=== PATIENT | female | born 1940 | race Caucasian/White ===

== ENCOUNTER 2018-02-20 18:44 | Emergency (ER) | payer MEDICARE ==
[2018-02-20 18:50] VITALS: TEMP 98.8
--- NOTE | 2018-02-20 19:28 | ED ---
General Adult HPI - General Chief complaint: Fall Stated complaint: fall Time Seen by Provider: 02/20/18 18:52 Source: patient, RN notes reviewed, old records reviewed Mode of arrival: EMS Limitations: no limitations - History of Present Illness Initial comments: This is a 78-year-old female the ER for evaluation. Patient resents today for evaluation of back pain back pain status post fall. Patient does suffer from history of COPD, has had history of multiple chemical in nature she fell backwards landing on her back. No loss of consciousness no other injury noted. Patient is complaining of lumbar spine back pain no loss of bowel or bladder no neurological complaint - Related Data Home Medications Medication Instructions Recorded Confirmed Jackson Cit/Mag/D3/Zn/Soils Engineer/Leonard/Bor 1 tab PO DAILY 12/18/13 10/04/15 [Citracal-Vit D + Magnesium Tab] Diltiazem Cd [Cardizem CD] 180 mg PO DAILY 12/18/13 10/04/15 Losartan/Hydrochlorothiazide 1 tab PO DAILY 12/18/13 10/04/15 [Hyzaar 100-25 Tablet] Potassium Chloride ER [K-Dur 20] 20 meq PO DAILY 12/18/13 10/04/15 Simvastatin [Zocor] 40 mg PO HS 12/18/13 10/04/15 Budesonide-Formot 160-4.5 Mcg 2 puff INHALATION RT-BID 10/03/15 10/04/15 [Symbicort 160-4.5 Mcg Inhaler] Ferrous Sulfate [Iron (65 MG 325 mg PO DAILY 10/03/15 10/04/15 Elemental)] Previous Rx's Medication Instructions Recorded Docusate [Colace] 100 mg PO BID #60 cap 09/21/15 Ipratropium-Albuterol Nebulize 3 ml INHALATION RT-QID #0 ampul.neb 09/21/15 [Duoneb 0.5 mg-3 mg/3 ml Soln] Levofloxacin [Levaquin] 500 mg PO DAILY #10 tab 10/05/15 Multivitamins, Thera [Multivitamin 1 tab PO DAILY #30 tablet 10/05/15 (formulary)] Omeprazole [PriLOSEC] 20 mg PO AC-BID #60 cap 10/05/15 predniSONE 10 mg PO DIRECTED #30 tab 10/05/15 Allergies Allergy/AdvReac Type Severity Reaction Status Date / Time erythromycin base Allergy Unknown Verified 02/20/18 18:50 Macrolide Antibiotics Allergy Unknown Verified 02/20/18 18:50 azithromycin AdvReac Nausea & Verified 02/20/18 18:50 Vomiting Review of Systems ROS Statement: Those systems with pertinent positive or pertinent negative responses have been documented in the HPI. ROS Other: All systems not noted in ROS Statement are negative. Past Medical History Past Medical History: Atrial Fibrillation, Cancer, COPD, Hyperlipidemia, Hypertension, Pneumonia, Syncope Additional Past Medical History / Comment(s): BREAST CANCER- LEFT MASTECTOMY, COUGHING UP BLOOD, HOME O2 2.5 LITERS N/C History of Any Multi-Drug Resistant Organisms: None Reported Past Surgical History: Breast Surgery Additional Past Surgical History / Comment(s): LEFT PARTICAL MASECTOMY, bilateral cataract removal-->implant, COLONOSCOPY Past Anesthesia/Blood Transfusion Reactions: No Reported Reaction Past Psychological History: No Psychological Hx Reported Smoking Status: Former smoker Past Alcohol Use History: None Reported Past Drug Use History: None Reported - Past Family History Father History Unknown: Yes Mother Additional Family Medical History / Comment(s): Mother at age 38 yrs. She was and labored for 52 hours and as a complication of that per pt. VERIFIED Sister(s) Family Medical History: CVA/TIA, Seizure Disorder Additional Family Medical History / Comment(s): at age 42 yrs from seizure/ CVA. Brother(s) Family Medical History: COPD, Diabetes Mellitus Additional Family Medical History / Comment(s): at age 61 yrs. General Exam Limitations: no limitations General appearance: alert, in no apparent distress Head exam: Present: atraumatic, normocephalic, normal inspection Eye exam: Present: normal appearance, PERRL, EOMI. Absent: scleral icterus, conjunctival injection, periorbital swelling ENT exam: Present: normal exam, mucous membranes moist Neck exam: Present: normal inspection. Absent: tenderness, meningismus, lymphadenopathy Respiratory exam: Present: normal lung sounds bilaterally. Absent: respiratory distress, wheezes, rales, rhonchi, stridor Cardiovascular Exam: Present: regular rate, normal rhythm, normal heart sounds. Absent: systolic murmur, diastolic murmur, rubs, gallop, clicks GI/Abdominal exam: Present: soft, normal bowel sounds. Absent: distended, tenderness, guarding, rebound, rigid Extremities exam: Present: normal inspection, full ROM, normal capillary refill. Absent: tenderness, pedal edema, joint swelling, calf tenderness Back exam: Present: normal inspection Neurological exam: Present: alert, oriented X3, CN II-XII intact Psychiatric exam: Present: normal affect, normal mood Skin exam: Present: warm, dry, intact, normal color. Absent: rash Course Vital Signs 02/20/18 18:46 Temperature 98.8 F Pulse Rate 93 Respiratory 18 Rate Blood Pressure 169/78 O2 Sat by Pulse 93 L Oximetry - Reevaluation(s) Reevaluation #1: 02/20/18 19:27 Patient is in no acute significant distress no neurological finding or complaint 02/20/18 19:27 Patient is able to ambulate Reevaluation #2: 02/20/18 19:31 Patient requesting breathing treatment, patient is in no acute distress Medical Decision Making - Radiology Data Radiology results: report reviewed (X-ray lumbosacral spine is negative for acute disease), image reviewed Disposition Clinical Impression: Fall, Back pain, Back contusion Disposition: HOME SELF-CARE Condition: Good Instructions: Fall Prevention for Older Adults (ED) Is patient prescribed a controlled substance at d/c from ED?: No Referrals: Patrick Hood MD [Primary Care Provider] - 1-2 days
[2018-02-20] MEDS ORDERED: IPRATROPIUM-ALBUTEROL 3 ML NEB INHALATION STA (19:31)
--- NOTE | 2018-02-20 19:39 | XR ---
EXAMINATION TYPE: XR lumbar spine 2 or 3V DATE OF EXAM: 02/20/2018 COMPARISON: NONE HISTORY: Back pain TECHNIQUE: 3 views FINDINGS: Lumbar vertebra have normal alignment. There is disc space narrowing throughout the lumbar spine. There is no compression fracture. Abdominal aorta is atheromatous. Sacroiliac joints are intac t. IMPRESSION: Multilevel spondylosis. No compression fracture seen.
[2018-02-20 20:25] VITALS: BP 150/72; PULSE 99; RESP 18
== END 2018-02-20 20:24 | disposition home or self-care (01) ==
LOC: EC 18:44
DX: S30.0XXA Contusion of lower back and pelvis, initial encounter (principal); I48.91 Unspecified atrial fibrillation; I10 Essential (primary) hypertension; J44.9 Chronic obstructive pulmonary disease, unspecified; E78.5 Hyperlipidemia, unspecified; Z79.51 Long term (current) use of inhaled steroids; Z79.899 Other long term (current) drug therapy; Z88.1 Allergy status to other antibiotic agents; Z87.891 Personal history of nicotine dependence; Z85.3 Personal history of malignant neoplasm of breast; Z90.12 Acquired absence of left breast and nipple; W19.XXXA Unspecified fall, initial encounter; Y92.009 Unspecified place in unspecified non-institutional (private) residence as the place of occurrence of the external cause
CPT/HCPCS: 72100; 94640; 99284

== ENCOUNTER 2018-06-06 13:20 | Inpatient (IN) | payer MEDICARE ==
[2018-06-06] MEDS ORDERED: SODIUM CHLORIDE 0.9% 1,000 ML IV STA (13:26)
[2018-06-06] MEDS ORDERED: SODIUM CHLORIDE 0.9% 500 ML 500 ML IV STA (13:26)
[2018-06-06 13:48] LABS: Basophils % (A) 0 %; Eosinophils % (A) 0 %; HCT 35.4 % (34.0-46.0); HGB 10.7 gm/dL (11.4-16.0); Hypochromasia Moderate; Lymphocytes # (A) 0.7 k/uL (1.0-4.8); Lymphocytes % (A) 5 %; MCHC 30.2 g/dL (31.0-37.0); MCV 86.1 fL (80.0-100.0); Mean Platelet Volume 7.3; Monocytes # (A) 0.6 k/uL (0-1.0); Monocytes % (A) 4 %; Neutrophils # (A) 12.7 k/uL (1.3-7.7); Neutrophils % (A) 89 %; Platelet Count 294 k/uL (150-450); RBC 4.12 m/uL (3.80-5.40); RDW 14.7 % (11.5-15.5); WBC 14.3 k/uL (3.8-10.6)
[2018-06-06 14:01] LABS: Albumin 3.9 g/dL (3.5-5.0); Calcium 11.8 mg/dL (8.4-10.2); Potassium 3.8 mmol/L (3.5-5.1); Total Bilirubin 0.5 mg/dL (0.2-1.3); Total Protein 6.8 g/dL (6.3-8.2)
--- NOTE | 2018-06-06 14:04 | ED ---
Weakness HPI - General Chief complaint: Weakness Stated complaint: Weakness/ fall Time Seen by Provider: 06/06/18 13:20 Source: patient, EMS, RN notes reviewed Mode of arrival: EMS Limitations: no limitations - History of Present Illness Initial comments: This is a 78-year-old female with a history of multiple medical problems including hypertension and atrial fibrillation who states he fell last evening around 8 PM last year she currently fast she does states she fell is unknown she lost consciousness or not but she laid on the floor all night and could not get up she was able change positions but could not get up and ambulate. She was brought in by EMS. She denies any head neck or back pain she does have kyphosis which is not new for her. He denies any nausea vomiting she states she is hungry and thirsty per paramedics she could not ambulate MD Complaint: generalized weakness - Related Data Home Medications Medication Instructions Recorded Confirmed Jackson Cit/Mag/D3/Zn/Kitchen Lead/Leonard/Bor 1 tab PO DAILY 12/18/13 10/04/15 [Citracal-Vit D + Magnesium Tab] Diltiazem Cd [Cardizem CD] 180 mg PO DAILY 12/18/13 10/04/15 Losartan/Hydrochlorothiazide 1 tab PO DAILY 12/18/13 10/04/15 [Hyzaar 100-25 Tablet] Potassium Chloride ER [K-Dur 20] 20 meq PO DAILY 12/18/13 10/04/15 Simvastatin [Zocor] 40 mg PO HS 12/18/13 10/04/15 Budesonide-Formot 160-4.5 Mcg 2 puff INHALATION RT-BID 10/03/15 10/04/15 [Symbicort 160-4.5 Mcg Inhaler] Ferrous Sulfate [Iron (65 MG 325 mg PO DAILY 10/03/15 10/04/15 Elemental)] Previous Rx's Medication Instructions Recorded Docusate [Colace] 100 mg PO BID #60 cap 09/21/15 Ipratropium-Albuterol Nebulize 3 ml INHALATION RT-QID #0 ampul.neb 09/21/15 [Duoneb 0.5 mg-3 mg/3 ml Soln] Levofloxacin [Levaquin] 500 mg PO DAILY #10 tab 10/05/15 Multivitamins, Thera [Multivitamin 1 tab PO DAILY #30 tablet 10/05/15 (formulary)] Omeprazole [PriLOSEC] 20 mg PO AC-BID #60 cap 10/05/15 predniSONE 10 mg PO DIRECTED #30 tab 10/05/15 Allergies Allergy/AdvReac Type Severity Reaction Status Date / Time erythromycin base Allergy Unknown Verified 06/06/18 13:22 Macrolide Antibiotics Allergy Unknown Verified 06/06/18 13:22 azithromycin AdvReac Nausea & Verified 06/06/18 13:22 Vomiting Review of Systems ROS Statement: Those systems with pertinent positive or pertinent negative responses have been documented in the HPI. ROS Other: All systems not noted in ROS Statement are negative. Past Medical History Past Medical History: Atrial Fibrillation, Cancer, COPD, Hyperlipidemia, Hypertension, Pneumonia, Syncope Additional Past Medical History / Comment(s): BREAST CANCER- LEFT MASTECTOMY, COUGHING UP BLOOD, HOME O2 2.5 LITERS N/C History of Any Multi-Drug Resistant Organisms: None Reported Past Surgical History: Breast Surgery Additional Past Surgical History / Comment(s): LEFT PARTICAL MASECTOMY, bilateral cataract removal-->implant, COLONOSCOPY Past Anesthesia/Blood Transfusion Reactions: No Reported Reaction Past Psychological History: No Psychological Hx Reported Smoking Status: Former smoker Past Alcohol Use History: None Reported Past Drug Use History: None Reported - Past Family History Father History Unknown: Yes Mother Additional Family Medical History / Comment(s): Mother at age 38 yrs. She was and labored for 52 hours and as a complication of that per pt. VERIFIED Sister(s) Family Medical History: CVA/TIA, Seizure Disorder Additional Family Medical History / Comment(s): at age 42 yrs from seizure/ CVA. Brother(s) Family Medical History: COPD, Diabetes Mellitus Additional Family Medical History / Comment(s): at age 61 yrs. General Exam - General Exam Comments Initial Comments: This is a well-developed well-nourished awake alert oriented 3 female she does demonstrate severe kyphosis. Limitations: physical limitation General appearance: alert, lethargic Head exam: Present: atraumatic, normocephalic, normal inspection Eye exam: Present: normal appearance, PERRL, EOMI. Absent: scleral icterus, conjunctival injection, periorbital swelling ENT exam: Present: mucous membranes dry Neck exam: Present: normal inspection. Absent: tenderness, meningismus, lymphadenopathy Respiratory exam: Present: normal lung sounds bilaterally. Absent: respiratory distress, wheezes, rales, rhonchi, stridor Cardiovascular Exam: Present: tachycardia, irregular rhythm. Absent: systolic murmur, diastolic murmur, rubs, gallop, clicks GI/Abdominal exam: Present: soft, normal bowel sounds. Absent: distended, tenderness, guarding, rebound, rigid Extremities exam: Present: normal inspection, full ROM, normal capillary refill. Absent: tenderness, pedal edema, joint swelling, calf tenderness Back exam: Present: normal inspection Neurological exam: Present: alert, oriented X3, CN II-XII intact Psychiatric exam: Present: normal affect, normal mood Skin exam: Present: warm, dry, intact, normal color. Absent: rash Course Vital Signs 06/06/18 06/06/18 06/06/18 13:22 13:27 13:30 Temperature 97.3 F L Pulse Rate 94 140 H 108 H Respiratory 18 31 H 28 H Rate Blood Pressure 89/67 101/67 O2 Sat by Pulse 87 L 94 L Oximetry 06/06/18 06/06/18 06/06/18 13:45 14:00 14:15 Temperature Pulse Rate 102 H 91 94 Respiratory 25 H 25 H 28 H Rate Blood Pressure 101/67 89/61 102/88 O2 Sat by Pulse 99 Oximetry 06/06/18 06/06/18 06/06/18 14:30 14:45 15:00 Temperature Pulse Rate 93 91 Respiratory 25 H 21 Rate Blood Pressure 111/69 111/69 108/68 O2 Sat by Pulse Oximetry 06/06/18 06/06/18 15:15 16:22 Temperature 98.6 F Pulse Rate 90 94 Respiratory 17 18 Rate Blood Pressure 91/52 105/59 O2 Sat by Pulse 100 98 Oximetry - Reevaluation(s) Reevaluation #1: 06/06/18 16:42 Reevaluation the patient after initial medication given heart rate has improved as well as blood pressure after IV fluids as well as IV Cardizem. EKG Findings - EKG Results: EKG: interpreted by ASHA (Atrial fibrillation with a rapid ventricular rate of 114 QRS duration 88 QT since QTC 292/[address] configuration.) Medical Decision Making - Medical Decision Making Patient is improving somewhat with initial treatment I did discuss [employer] her and her family member. Patient will be admitted for inpatient treatment. I did discuss case with Dr. Mike who did come the emergency department and see the patient. - Lab Data Result diagrams: 06/06/18 13:25 06/06/18 13:25 Lab Results 06/06/18 06/06/18 06/06/18 Range/Units 13:25 13:25 13:25 WBC 14.3 H (3.8-10.6) k/uL RBC 4.12 (3.80-5.40) m/uL Hgb 10.7 L (11.4-16.0) gm/dL Hct 35.4 (34.0-46.0) % MCV 86.1 (80.0-100.0) fL MCH 26.0 (25.0-35.0) pg MCHC 30.2 L (31.0-37.0) g/dL RDW 14.7 (11.5-15.5) % Plt Count 294 (150-450) k/uL Neutrophils % 89 % Lymphocytes % 5 % Monocytes % 4 % Eosinophils % 0 % Basophils % 0 % Neutrophils # 12.7 H (1.3-7.7) k/uL Lymphocytes # 0.7 L (1.0-4.8) k/uL Monocytes # 0.6 (0-1.0) k/uL Eosinophils # 0.0 (0-0.7) k/uL Basophils # 0.0 (0-0.2) k/uL Hypochromasia Moderate Sodium (137-145) mmol/L Potassium (3.5-5.1) mmol/L Chloride (98-107) mmol/L Carbon Dioxide (22-30) mmol/L Anion Gap mmol/L BUN (7-17) mg/dL Creatinine (0.52-1.04) mg/dL Est GFR (CKD-EPI)AfAm (>60 ml/min/1.73 sqM) Est GFR (CKD-EPI)NonAf (>60 ml/min/1.73 sqM) Glucose (74-99) mg/dL Calcium (8.4-10.2) mg/dL Magnesium (1.6-2.3) mg/dL Total Bilirubin (0.2-1.3) mg/dL AST (14-36) U/L ALT (9-52) U/L Alkaline Phosphatase (38-126) U/L Total Creatine Kinase 333 H (30-135) U/L CK-MB (CK-2) 7.5 H (0.0-2.4) ng/mL CK-MB (CK-2) Rel Index 2.3 Troponin I 0.094 H* (0.000-0.034) ng/mL NT-Pro-B Natriuret Pep 6150 pg/mL Total Protein (6.3-8.2) g/dL Albumin (3.5-5.0) g/dL Urine Color Urine Appearance (Clear) Urine pH (5.0-8.0) Ur Specific [place] (1.001-1.035) Urine Protein (Negative) Urine Glucose (UA) (Negative) Urine Ketones (Negative) Urine Blood (Negative) Urine Nitrite (Negative) Urine Bilirubin (Negative) Urine Urobilinogen (<2.0) mg/dL Ur Leukocyte Esterase (Negative) Urine RBC (0-5) /hpf Urine WBC (0-5) /hpf Urine Mucus (None) /hpf Urine Yeast (Budding) (None) /hpf 06/06/18 06/06/18 Range/Units 13:25 15:25 WBC (3.8-10.6) k/uL RBC (3.80-5.40) m/uL Hgb (11.4-16.0) gm/dL Hct (34.0-46.0) % MCV (80.0-100.0) fL MCH (25.0-35.0) pg MCHC (31.0-37.0) g/dL RDW (11.5-15.5) % Plt Count (150-450) k/uL Neutrophils % % Lymphocytes % % Monocytes % % Eosinophils % % Basophils % % Neutrophils # (1.3-7.7) k/uL Lymphocytes # (1.0-4.8) k/uL Monocytes # (0-1.0) k/uL Eosinophils # (0-0.7) k/uL Basophils # (0-0.2) k/uL Hypochromasia Sodium 140 (137-145) mmol/L Potassium 3.8 (3.5-5.1) mmol/L Chloride 97 L (98-107) mmol/L Carbon Dioxide 28 (22-30) mmol/L Anion Gap 15 mmol/L BUN 38 H (7-17) mg/dL Creatinine 1.63 H (0.52-1.04) mg/dL Est GFR (CKD-EPI)AfAm 35 (>60 ml/min/1.73 sqM) Est GFR (CKD-EPI)NonAf 30 (>60 ml/min/1.73 sqM) Glucose 119 H (74-99) mg/dL Calcium 11.8 H (8.4-10.2) mg/dL Magnesium 2.0 (1.6-2.3) mg/dL Total Bilirubin 0.5 (0.2-1.3) mg/dL AST 43 H (14-36) U/L ALT 26 (9-52) U/L Alkaline Phosphatase 142 H (38-126) U/L Total Creatine Kinase (30-135) U/L CK-MB (CK-2) (0.0-2.4) ng/mL CK-MB (CK-2) Rel Index Troponin I (0.000-0.034) ng/mL NT-Pro-B Natriuret Pep pg/mL Total Protein 6.8 (6.3-8.2) g/dL Albumin 3.9 (3.5-5.0) g/dL Urine Color Yellow Urine Appearance Clear (Clear) Urine pH 5.5 (5.0-8.0) Ur Specific [place] 1.012 (1.001-1.035) Urine Protein 1+ H (Negative) Urine Glucose (UA) Negative (Negative) Urine Ketones Trace H (Negative) Urine Blood Negative (Negative) Urine Nitrite Negative (Negative) Urine Bilirubin Negative (Negative) Urine Urobilinogen <2.0 (<2.0) mg/dL Ur Leukocyte Esterase Negative (Negative) Urine RBC 4 (0-5) /hpf Urine WBC 2 (0-5) /hpf Urine Mucus Rare H (None) /hpf Urine Yeast (Budding) Rare H (None) /hpf - Radiology Data Radiology results: report reviewed, image reviewed Critical Care Time Critical Care Time: Yes Critical Care Time: 37 minutes of critical care time which includes initial presentation with history physical labs x-rays several reevaluation patient responsive therapy discuss with the patient family regarding findings discussion with the admitting physician admission orders and documentation of the above Disposition Clinical Impression: Rapid atrial fibrillation, Dehydration, Elevated troponin, Failure to thrive syndrome, adult, Weakness, Fall, Renal insufficiency syndrome, Hypotensive episode Disposition: ADMITTED IP TO THIS HOSP Condition: Stable Referrals: Rad Turner DO [Primary Care Provider] - 1-2 days
[2018-06-06] MEDS: DILTIAZEM 50 MG in SODIUM CHLORIDE 0.9% 40 ML IV SCH ×2 (14:17→20:00)
[2018-06-06 14:22] LABS: Creatine Kinase MB 7.5 ng/mL (0.0-2.4)
[2018-06-06 14:24] LABS: Troponin I 0.094 ng/mL (0.000-0.034)
--- NOTE | 2018-06-06 14:40 | XR ---
EXAMINATION TYPE: XR chest 2V DATE OF EXAM: 06/06/2018 COMPARISON: 10/03/2015 HISTORY: Weakness. TECHNIQUE: Frontal and lateral views of the chest are obtained. FINDINGS: There is mild coarsening of the interstitial markings. Heart size is normal. There is no h eart failure. There is osteopenia. There is slight anterior wedging of multiple thoracic vertebra. Th ere is no pleural effusion. IMPRESSION: Pulmonary fibrotic changes. No heart failure. Multiple mild compression deformities in the thoracic spine have progressed compared to last exam. So me of these could be acute fractures.
[2018-06-06 15:59] LABS: Appearance,Urine Clear (Clear); Bilirubin,Urine Negative (Negative); Blood,Urine Negative (Negative); Budding Yeast,Urine Rare /hpf; Color,Urine Yellow; Glucose,Urine (UA) Negative (Negative); Ketones,Urine Trace (Negative); Leukocyte Esterase,Urine Negative (Negative); Mucus,Urine Rare /hpf; Nitrite,Urine Negative (Negative); PH, Urine 5.5 (5.0-8.0); Protein,Urine 1+ (Negative); RBC,Urine 4 /hpf (0-5); Specific Gravity,Urine 1.012 (1.001-1.035); Urobilinogen,Urine <2.0 mg/dL (<2.0); WBC,Urine 2 /hpf (0-5)
[2018-06-06] MEDS ORDERED: NALOXONE 0.4 MG/ML 1 ML VIAL IV PRN (16:48)
[2018-06-06] MEDS ORDERED: predniSONE 10 MG TAB PO SCH (17:00)
[2018-06-06] MEDS: PIPERACILLIN-TAZOBACTAM 3.375 GM in SODIUM CHLORIDE 0.9% 100 ML IVPB SCH (18:12)
[2018-06-06] MEDS: SYMBICORT 160-4.5 MCG INHALER INHALATION SCH (19:40)
[2018-06-06] MEDS: IPRATROPIUM-ALBUTEROL 3 ML NEB INHALATION SCH (19:40)
[2018-06-06] MEDS: PANTOPRAZOLE 40 MG TABLET PO SCH (20:00)
[2018-06-06] MEDS: DOCUSATE 100 MG CAP PO SCH (20:00)
[2018-06-06] MEDS: ATORVASTATIN 20 MG TAB PO SCH (20:00)
--- NOTE | 2018-06-06 21:50 | HP ---
HISTORY AND PHYSICAL CHIEF COMPLAINT: Weakness and fall. HISTORY OF PRESENT ILLNESS: This 78-year-old woman with a past medical history of multiple medical problems including atrial fibrillation, COPD, hypertension, hyperlipidemia, syncope, history of breast cancer with mastectomy being followed by Dr. Hood in the outpatient setting, apparently was complaining of some weakness and the patient apparently lives by herself and the patient fell last evening about 8 o'clock and the patient was taken to [facility] and was admitted for further evaluation and treatment. The patient was found to be hypotensive. Patient was found to be slightly dehydrated. Chest x- ray showed bilateral opacities and the patient is being admitted for further evaluation and treatment. There is no history of fever, rigors or chills. No history of headache, loss of consciousness, seizures at this time. PAST MEDICAL HISTORY: History of atrial ablation COPD, hypertension, hyperlipidemia, history of pneumonia, history of syncope, history of breast surgery. MEDICATIONS: Prior to admission include home medications are reviewed and include: 1. Prednisone 10 mg p.r.n. 2. Zocor 40 mg q.h.s. 3. K-Dur 20 mEq p.o. daily. 4. Prilosec 20 mg b.i.d. 5. Multivitamins 1 p.o. daily. 6. Hyzaar 1 tablet p.o. daily. 7. Levaquin 500 mg p.o. daily. 8. DuoNeb q.i.d. 9. Iron sulfate 320 mg p.o. daily. 10.Colace 100 mg p.o. b.i.d. 11.Cardizem CD 180 mg p.o. daily. 12.Calcium citrate 1 tablet p.o. daily. 13.Symbicort 1-2 puffs b.i.d. ALLERGIES: ERYTHROMYCIN, ZITHROMAX. FAMILY HISTORY: History of CVA, TIA, seizure disorder. SOCIAL HISTORY: Remote history of nicotine dependence. No history of alcohol. REVIEW OF SYSTEMS: ENT: Diminished vision, diminished hearing. CARDIOVASCULAR: As mentioned earlier. RESPIRATORY: As mentioned earlier. GI no nausea or vomiting. : No dysuria. NERVOUS SYSTEM: No numbness, generalized weakness present. ALLERGIES/IMMUNOLOGY : No asthma or hayfever. MUSCULOSKELETAL: As mentioned earlier. ENDOCRINE: No hypothyroidism, no diabetes. CONSTITUTIONAL: As mentioned earlier. Dermatology: Negative. Rheumatology: Negative. Psychiatry: As mentioned earlier. PHYSICAL EXAM: GENERAL: Patient is alert, oriented x two. Pulse is 94. Blood pressure 105/59, respirations 18, temperature 98.2, pulse ox 98% on 2 L. HEENT: Conjunctivae normal. Oral mucosa dry. NECK is jugular venous distention at the root of the neck. CARDIOVASCULAR: S1, S2 muffled. Ejection systolic murmur. RESPIRATORY: Breath sounds diminished in the bases. A few bilateral scattered rhonchi and crackles. ABDOMEN: Soft, scaphoid, nontender. No mass palpable. LEGS: Minimal edema. NERVOUS SYSTEM: Higher functions as mentioned earlier. Moves all 4 limbs. No focal motor or sensory deficits. Lymphatics: No lymph nodes palpable in the neck, axillae or groin. SKIN: No ulcer, no rash. No bleeding. LABS: WBC 14.3, hemoglobin 10.7, sodium 140, potassium 3.8, creatinine is 1.63, calcium is 11.8, troponin 0.094. ASSESSMENT: 1. Fall and weakness for evaluation. 2. Rule out bilateral pneumonia. 3. Rule out influenza. indet trops hypercalcemia 4. Congestive heart failure, unlikely. 5. Dehydration. 6. Increased creatinine with possibly acute renal failure, prerenal renal failure. 7. Increased WBC. 8. History atrial fibrillation with fast ventricular rate. 9. Chronic obstructive pulmonary disease. 10.History of hypertension. 11.Hyperlipidemia. 12.History of pneumonia. 13.History of breast cancer. Left mastectomy. 14.Remote history of nicotine dependence. RECOMMENDATIONS AND DISCUSSION: In this 78-year-old woman who presented with multiple complex medical issues at this time I recommend to continue current medications, symptomatic treatment, management and I will initiate broad-spectrum IV antibiotics and we will hold off the diuretics for now. I would also recommend speech pathology evaluation. PT/OT evaluation. icebox worker to evaluate the home situation and prognosis guarded because of multiple complex medical issues. Further recommendations to follow. I would also recommend cardiology and pulmonology consultation also. See orders for details. Optimize bronchodilator treatment. MMODL / IJN: [id number] / MTDD
[2018-06-07] MEDS: PIPERACILLIN-TAZOBACTAM 3.375 GM in SODIUM CHLORIDE 0.9% 100 ML IVPB SCH ×4 (00:01→23:17)
[2018-06-07 07:17] LABS: Calcium 10.5 mg/dL (8.4-10.2); Potassium 3.5 mmol/L (3.5-5.1)
--- NOTE | 2018-06-07 07:17 | XR ---
EXAMINATION TYPE: XR chest 1V portable DATE OF EXAM: 06/07/2018 HISTORY: chf. REFERENCE: Previous study dated 06/06/2018. FINDINGS: Lungs are overinflated. There are chronic interstitial changes. The heart is not enlarged. Both CP angles are blunted. There is developing airspace disease at the right lung base. IMPRESSION: 1. COPD AND INTERSTITIAL FIBROSIS. 2. WORSENING RIGHT BASILAR AIRSPACE DISEASE. 3. I CANNOT EXCLUDE SMALL, BILATERAL EFFUSIONS.
[2018-06-07 07:30] LABS: Basophils % (A) 0 %; Eosinophils % (A) 0 %; HCT 33.1 % (34.0-46.0); HGB 9.8 gm/dL (11.4-16.0); Hypochromasia Marked; Lymphocytes % (A) 8 %; MCH 26.4 pg (25.0-35.0); MCHC 29.6 g/dL (31.0-37.0); MCV 89.1 fL (80.0-100.0); Mean Platelet Volume 7.6; Monocytes # (A) 0.8 k/uL (0-1.0); Monocytes % (A) 6 %; Neutrophils # (A) 10.8 k/uL (1.3-7.7); Neutrophils % (A) 85 %; Platelet Count 263 k/uL (150-450); RBC 3.71 m/uL (3.80-5.40); RDW 14.6 % (11.5-15.5); WBC 12.8 k/uL (3.8-10.6)
[2018-06-07] MEDS: PANTOPRAZOLE 40 MG TABLET PO SCH ×2 (07:41→17:34)
[2018-06-07] MEDS: SYMBICORT 160-4.5 MCG INHALER INHALATION SCH ×2 (08:03→19:34)
[2018-06-07] MEDS: IPRATROPIUM-ALBUTEROL 3 ML NEB INHALATION SCH ×4 (08:03→19:34)
[2018-06-07] MEDS: POTASSIUM CHLORIDE ER 20 MEQ TAB.ER PO SCH (08:21)
[2018-06-07] MEDS: DOCUSATE 100 MG CAP PO SCH ×2 (08:21→20:29)
[2018-06-07] MEDS ORDERED: LEVOFLOXACIN 500 MG TAB PO SCH (09:00)
[2018-06-07] MEDS ORDERED: DILTIAZEM CD 180 MG CAP.ER.24H PO SCH (09:00)
[2018-06-07] MEDS ORDERED: LOSARTAN-HCTZ 50-12.5 MG 1 EACH TAB PO SCH (09:00)
[2018-06-07] MEDS: DILTIAZEM 50 MG in SODIUM CHLORIDE 0.9% 40 ML IV SCH (11:53)
--- NOTE | 2018-06-07 12:31 | P.CRDCN ---
<Cara Baeza A - Last Filed: 06/07/18 12:21> History of Present Illness History of present illness: This is a pleasant 78-year-old female past medical history significant for paroxysmal atrial fibrillation on ad terminal makeup operator anticoagulation, COPD, pulmonary fibrosis, dyslipdiemia and hypertension. She denies history of coronary artery disease. She follows with Dr. Lee in the office. We have been asked to see her in consultation for atrial fibrillation with rapid ventricular response. She states she presented to the hospital after suffering a fall at home. She states she started feeling mildly light headed and weak. Upon arrival she was in a-fib with rate of 114. She denies feeling palpitations , chest pain or shortness of breath. She states she has felt this way 2 other times in the last few months and has fallen. Each time is a similar presentation with no other symptoms other than the weak lightheaded. She came to the hospital to be evaluated each time and was sent home. No EKG evidence of a-fib during those episodes. She was initiated on cardizem infusion in ED. She continues to be in a-fib with much better controlled heart rate. She is currently receiving IV antibiotics as well as updraft treatments. EKG reveals atrial fibrillation with mildly rapid ventricular response heart rate 114. chest x-ray obtained this morning reveals COPD and interstitial fibrosis with worsening right basilar airspace disease. Laboratory data reviewed, WBC 12.8 down from 14.3 on admission, hemoglobin 9.8, platelets 263, sodium 141, potassium 3.5, creatinine 1.55, magnesium 2.0, NT proBNP 6150, troponin 0.094. At the time of my exam: CONSTITUTIONAL: Denies fever. Denies chills. EYES: Denies blurred vision. Denies vision changes. Denies eye pain. EARS, NOSE, MOUTH & THROAT: Denies headache. Denies sore throat. Denies ear pain. CARDIOVASCULAR: Denies chest pain. Denies shortness of breath. Denies orthopnea. Denies PND. Denies palpitations. RESPIRATORY: Denies cough. GASTROINTESTINAL: Denies abdominal pain. Denies diarrhea. Denies constipation. Denies nausea. Denies vomiting. MUSCULOSKELETAL: Denies myalgias. INTEGUMENTARY: Denies pruitis. Denies rash. NEUROLOGIC: Denies numbness. Denies tingling. Denies weakness. PSYCHIATRIC: Denies anxiety. Denies depression. ENDOCRINE: Denies fatigue. Denies weight change. Denies polydipsia. Denies polyurina. GENITOURINARY: Denies burning, hematuria or urgency with micturation. HEMATOLOGIC: Denies history of anemia. Denies bleeding. Blood pressure 130/55 heart rate 104 afebrile maintaining action saturation on nasal cannula GENERAL: This is a 78-year-old female in no apparent distress at the time of my examination. HEENT: Head is atraumatic, normocephalic. Pupils are equal, round. Sclerae anicteric. Conjunctivae are clear. Mucous membranes of the mouth are moist. Neck is supple. There is no jugular venous distention. No carotid bruit is heard. LUNGS: course rhonchi noted throughout with faint expiratory wheeze, no rales. Diminished bilaterally. No chest wall tenderness is noted on palpation or with deep breathing. HEART: Irregular rate and rhythm without murmurs, rubs or gallops. S1 and S2 heard. ABDOMEN: Soft, nontender. Bowel sounds are heard. No organomegaly noted. EXTREMITIES: No evidence of peripheral edema and no calf tenderness noted. VASCULAR: Radial and dorsalis pedis pulses palpated, no evidence of clubbing. NEUROLOGIC: Patient is awake, alert and oriented x3. ASSESSMENT Paroxysmal atrial fibrillation with mildly rapid ventricular response on ad terminal makeup operator anticoagulation Acute exacerbation of chronic COPD Hypertension Dyslipidemia Former nicotine dependence, quit January 2018 Leukocytosis Mild troponin leak, not indicative of an acute coronary event. May be secondary to rapid heart beat on admission. PLAN Discontinue cardizem infusion this afternoon and start her on increased dose of PO cardizem CD at 240 mg daily from tomorrow morning. Obtain 2D echocardiogram and doppler study to assess cardiac structure and function. Check thyroid function. Ongoing medical management of COPD exacerbation. No clinical evidence for heart failure, appears euvolemic. We will review her records from the office. We will continue to follow and make recommendations accordingly. Thank you kindly for this consultation. Nurse Practitioner note has been reviewed, I agree with a documented findings and plan of care. Patient was seen and examined. Past Medical History Past Medical History: Atrial Fibrillation, Cancer, COPD, Hyperlipidemia, Hypertension, Pneumonia, Syncope Additional Past Medical History / Comment(s): BREAST CANCER- LEFT MASTECTOMY, COUGHING UP BLOOD, HOME O2 2.5 LITERS N/C History of Any Multi-Drug Resistant Organisms: None Reported Past Surgical History: Breast Surgery Additional Past Surgical History / Comment(s): LEFT PARTICAL MASECTOMY, bilateral cataract removal-->implant, COLONOSCOPY Past Anesthesia/Blood Transfusion Reactions: No Reported Reaction Past Psychological History: No Psychological Hx Reported Additional Psychological History / Comment(s): Pt resides with her brother. She has a walker she uses if going longer distances. She has home oxygen which she [facility]. She has a nebulizer. Pt does not drive. She has missed appts due to ride problems. She has no current home care but after previous hospitalizations she has use [facility]. VERIFIED by Gamal Jiménez RN Smoking Status: Never smoker Past Alcohol Use History: None Reported Additional Past Alcohol Use History / Comment(s): PT STATED STOPPED SMOKING 1.5 MONHTS AGO Past Drug Use History: None Reported - Past Family History Father History Unknown: Yes Mother Additional Family Medical History / Comment(s): Mother at age 38 yrs. She was and labored for 52 hours and as a complication of that per pt. VERIFIED Sister(s) Family Medical History: CVA/TIA, Seizure Disorder Additional Family Medical History / Comment(s): at age 42 yrs from seizure/ CVA. Brother(s) Family Medical History: COPD, Diabetes Mellitus Additional Family Medical History / Comment(s): at age 61 yrs. Medications and Allergies Home Medications Medication Instructions Recorded Confirmed Type Jackson Cit/Mag/D3/Zn/Salad Bar Clerk/Leonard/Bor 1 tab PO DAILY 12/18/13 06/06/18 History [Citracal-Vit D + Magnesium Tab] Diltiazem Cd [Cardizem CD] 180 mg PO DAILY 12/18/13 06/06/18 History Losartan/Hydrochlorothiazide 1 tab PO DAILY 12/18/13 06/06/18 History [Hyzaar 100-25 Tablet] Potassium Chloride ER [K-Dur 20] 20 meq PO DAILY 12/18/13 06/06/18 History Docusate [Colace] 100 mg PO BID #60 cap 09/21/15 06/06/18 Rx Ipratropium-Albuterol Nebulize 3 ml INHALATION RT-QID #0 ampul.neb 09/21/15 Rx [Duoneb 0.5 mg-3 mg/3 ml Soln] Ferrous Sulfate [Iron (65 MG 325 mg PO DAILY 10/03/15 06/06/18 History Elemental)] Multivitamins, Thera [Multivitamin 1 tab PO DAILY #30 tablet 10/05/15 06/06/18 Rx (formulary)] Ipratropium/Albuterol Sulfate 1 puff INHALATION RT-QID 06/06/18 06/06/18 History [Combivent Respimat Inhaler] Pravastatin Sodium [Pravachol] 40 mg PO DAILY 06/06/18 06/06/18 History Rivaroxaban [Xarelto] 20 mg PO DAILY 06/06/18 06/06/18 History Allergies Allergy/AdvReac Type Severity Reaction Status Date / Time erythromycin base Allergy Unknown Verified 06/06/18 17:09 Macrolide Antibiotics Allergy Unknown Verified 06/06/18 17:09 azithromycin AdvReac Nausea & Verified 06/06/18 17:09 Vomiting Physical Exam Vitals: Vital Signs Temp Pulse Pulse Resp BP BP Pulse Ox 06/07/18 11:25 104 H 06/07/18 08:15 96 06/07/18 08:04 94 06/07/18 08:00 98.1 F 103 H 18 130/55 96 06/07/18 03:07 90 90/60 99 06/07/18 01:06 98 98/55 06/06/18 23:03 88 16 96/54 93 L 06/06/18 22:12 93 102/59 06/06/18 21:25 91 82/59 06/06/18 20:00 98.0 F 88 16 93/55 97 06/06/18 19:54 96 06/06/18 19:42 97 97 06/06/18 18:30 98.3 F 100 18 131/61 97 06/06/18 18:24 97.8 F 90 18 102/64 97 06/06/18 16:22 98.6 F 94 18 105/59 98 06/06/18 15:15 90 17 91/52 100 06/06/18 15:00 91 21 108/68 06/06/18 14:45 93 25 H 111/69 06/06/18 14:30 111/69 06/06/18 14:15 94 28 H 102/88 99 06/06/18 14:00 91 25 H 89/61 06/06/18 13:45 102 H 25 H 101/67 06/06/18 13:30 108 H 28 H 101/67 94 L 06/06/18 13:27 140 H 31 H 06/06/18 13:22 97.3 F L 94 18 89/67 87 L Intake and Output 06/06/18 06/07/18 06/07/18 22:59 06:59 14:59 Intake Total 528.583 35.75 880 Output Total 300 Balance 228.583 35.75 880 Intake: Amount of Fluid Infused ( 500 ml) Intake, IV Titration 28.583 35.75 700 Amount Diltiazem 50 mg In Sodium 28.583 35.75 Chloride 0.9% 40 ml @ 5 MG/HR 5 mls/hr IV .Q10H [facility] Rx#:[id number] Piperacillin-Tazobactam 3 100 .375 gm In Sodium Chloride 0.9% 100 ml @ 25 mls/hr IVPB Q8HR [facility] Rx# :[id number] Sodium Chloride 0.9% 1, 600 000 ml @ 75 mls/hr IV . [id number] [facility] Rx#:[id number] Oral 180 Output: Urine 300 Other: Voiding Method Bedpan Bedpan Bedpan # Voids 1 # Bowel Movements 1 Weight 54.5 kg Results 06/07/18 06:01 06/07/18 06:01 Cardiac Enzymes 06/06/18 06/06/18 Range/Units 13:25 13:25 AST 43 H (14-36) U/L CK-MB (CK-2) 7.5 H (0.0-2.4) ng/mL Troponin I 0.094 H* (0.000-0.034) ng/mL CBC 06/06/18 06/07/18 Range/Units 13:25 06:01 WBC 14.3 H 12.8 H (3.8-10.6) k/uL RBC 4.12 3.71 L (3.80-5.40) m/uL Hgb 10.7 L 9.8 L (11.4-16.0) gm/dL Hct 35.4 33.1 L (34.0-46.0) % Plt Count 294 263 (150-450) k/uL Comprehensive Metabolic Panel 06/06/18 06/07/18 Range/Units 13:25 06:01 Sodium 140 141 (137-145) mmol/L Potassium 3.8 3.5 (3.5-5.1) mmol/L Chloride 97 L 103 (98-107) mmol/L Carbon Dioxide 28 28 (22-30) mmol/L BUN 38 H 42 H (7-17) mg/dL Creatinine 1.63 H 1.55 H (0.52-1.04) mg/dL Glucose 119 H 92 (74-99) mg/dL Calcium 11.8 H 10.5 H (8.4-10.2) mg/dL AST 43 H (14-36) U/L ALT 26 (9-52) U/L Alkaline Phosphatase 142 H (38-126) U/L Total Protein 6.8 (6.3-8.2) g/dL Albumin 3.9 (3.5-5.0) g/dL Current Medications Generic Name Dose Route Start Last Admin Trade Name Freq PRN Reason Stop Dose Admin Albuterol/Ipratropium 3 ml 06/06/18 20:00 06/07/18 11:25 Duoneb 0.5 Mg-3 Mg/3 Ml Soln INHALATION 3 ml RT-QID [facility] Administration Atorvastatin Calcium 20 mg 06/06/18 21:00 06/06/18 20:00 Lipitor PO 20 mg HS [facility] Administration Budesonide/Formoterol Fumarate 2 puff 06/06/18 20:00 06/07/18 08:03 Symbicort 160-4.5 Mcg Inhaler INHALATION 2 puff RT-BID [facility] Administration Calcium Carbonate 1 each 06/07/18 12:00 Oscal 500+D PO 1200 [facility] Diltiazem HCl 180 mg 06/07/18 09:00 Cardizem Cd PO DAILY [facility] Docusate Sodium 100 mg 06/06/18 21:00 06/07/18 08:21 Colace PO 100 mg BID [facility] Administration Ferrous Sulfate 325 mg 06/07/18 12:00 Feosol PO 1200 [facility] HCTZ/Losartan Potassium 2 each 06/07/18 09:00 06/07/18 08:21 Hyzaar 50-12.5 PO 2 each DAILY [facility] Administration Diltiazem HCl 50 mg/ Sodium 50 mls @ 5 mls/hr 06/06/18 13:45 06/07/18 03:09 Chloride IV 0 mg/hr .Q10H [facility] 0 mls/hr Infusion 5 MG/HR Piperacillin Sod/Tazobactam 100 mls @ 25 mls/hr 06/06/18 17:00 06/07/18 08:21 Sod 3.375 gm/ Sodium Chloride IVPB 25 mls/hr Q8HR [facility] Administration Multivitamins 1 each 06/07/18 12:00 Theragran PO 1200 [facility] Naloxone HCl 0.2 mg 06/06/18 16:48 Narcan IV Q2M PRN Opioid Reversal Pantoprazole Sodium 40 mg 06/06/18 17:30 06/07/18 07:41 Protonix PO 40 mg AC-BID [facility] Administration Potassium Chloride 20 meq 06/07/18 09:00 06/07/18 08:21 K-Dur 20 PO 20 meq DAILY [facility] Administration Intake and Output 06/06/18 06/07/18 06/07/18 22:59 06:59 14:59 Intake Total 528.583 35.75 880 Output Total 300 Balance 228.583 35.75 880 Intake: Amount of Fluid Infused ( 500 ml) Intake, IV Titration 28.583 35.75 700 Amount Diltiazem 50 mg In Sodium 28.583 35.75 Chloride 0.9% 40 ml @ 5 MG/HR 5 mls/hr IV .Q10H [facility] Rx#:[id number] Piperacillin-Tazobactam 3 100 .375 gm In Sodium Chloride 0.9% 100 ml @ 25 mls/hr IVPB Q8HR [facility] Rx# :[id number] Sodium Chloride 0.9% 1, 600 000 ml @ 75 mls/hr IV . [id number] [facility] Rx#:[id number] Oral 180 Output: Urine 300 Other: Voiding Method Bedpan Bedpan Bedpan # Voids 1 # Bowel Movements 1 Weight 54.5 kg 06/07/18 06:01 06/07/18 06:01 <Teri Hall - Last Filed: 06/07/18 13:12> Physical Exam Vitals: Vital Signs Temp Pulse Pulse Resp BP BP Pulse Ox 06/07/18 11:38 100 06/07/18 11:25 104 H 06/07/18 08:15 96 06/07/18 08:04 94 06/07/18 08:00 98.1 F 103 H 18 130/55 96 06/07/18 03:07 90 90/60 99 06/07/18 01:06 98 98/55 06/06/18 23:03 88 16 96/54 93 L 06/06/18 22:12 93 102/59 06/06/18 21:25 91 82/59 06/06/18 20:00 98.0 F 88 16 93/55 97 06/06/18 19:54 96 06/06/18 19:42 97 97 06/06/18 18:30 98.3 F 100 18 131/61 97 06/06/18 18:24 97.8 F 90 18 102/64 97 06/06/18 16:22 98.6 F 94 18 105/59 98 06/06/18 15:15 90 17 91/52 100 06/06/18 15:00 91 21 108/68 06/06/18 14:45 93 25 H 111/69 06/06/18 14:30 111/69 06/06/18 14:15 94 28 H 102/88 99 06/06/18 14:00 91 25 H 89/61 06/06/18 13:45 102 H 25 H 101/67 06/06/18 13:30 108 H 28 H 101/67 94 L 06/06/18 13:27 140 H 31 H 06/06/18 13:22 97.3 F L 94 18 89/67 87 L Intake and Output 06/06/18 06/07/18 06/07/18 22:59 06:59 14:59 Intake Total 528.583 35.75 880 Output Total 300 Balance 228.583 35.75 880 Intake: Amount of Fluid Infused ( 500 ml) Intake, IV Titration 28.583 35.75 700 Amount Diltiazem 50 mg In Sodium 28.583 35.75 0 Chloride 0.9% 40 ml @ 5 MG/HR 5 mls/hr IV .Q10H [facility] Rx#:[id number] Piperacillin-Tazobactam 3 100 .375 gm In Sodium Chloride 0.9% 100 ml @ 25 mls/hr IVPB Q8HR [facility] Rx# :[id number] Sodium Chloride 0.9% 1, 600 000 ml @ 75 mls/hr IV . [id number] [facility] Rx#:[id number] Oral 180 Output: Urine 300 Other: Voiding Method Bedpan Bedpan Bedpan # Voids 1 # Bowel Movements 1 Weight 54.5 kg 55.7 kg Results 06/07/18 06:01 06/07/18 06:01 Cardiac Enzymes 06/06/18 06/06/18 Range/Units 13:25 13:25 AST 43 H (14-36) U/L CK-MB (CK-2) 7.5 H (0.0-2.4) ng/mL Troponin I 0.094 H* (0.000-0.034) ng/mL CBC 06/06/18 06/07/18 Range/Units 13:25 06:01 WBC 14.3 H 12.8 H (3.8-10.6) k/uL RBC 4.12 3.71 L (3.80-5.40) m/uL Hgb 10.7 L 9.8 L (11.4-16.0) gm/dL Hct 35.4 33.1 L (34.0-46.0) % Plt Count 294 263 (150-450) k/uL Comprehensive Metabolic Panel 06/06/18 06/07/18 Range/Units 13:25 06:01 Sodium 140 141 (137-145) mmol/L Potassium 3.8 3.5 (3.5-5.1) mmol/L Chloride 97 L 103 (98-107) mmol/L Carbon Dioxide 28 28 (22-30) mmol/L BUN 38 H 42 H (7-17) mg/dL Creatinine 1.63 H 1.55 H (0.52-1.04) mg/dL Glucose 119 H 92 (74-99) mg/dL Calcium 11.8 H 10.5 H (8.4-10.2) mg/dL AST 43 H (14-36) U/L ALT 26 (9-52) U/L Alkaline Phosphatase 142 H (38-126) U/L Total Protein 6.8 (6.3-8.2) g/dL Albumin 3.9 (3.5-5.0) g/dL Current Medications Generic Name Dose Route Start Last Admin Trade Name Freq PRN Reason Stop Dose Admin Albuterol/Ipratropium 3 ml 06/06/18 20:00 06/07/18 11:25 Duoneb 0.5 Mg-3 Mg/3 Ml Soln INHALATION 3 ml RT-QID [facility] Administration Atorvastatin Calcium 20 mg 06/06/18 21:00 06/06/18 20:00 Lipitor PO 20 mg HS [facility] Administration Budesonide/Formoterol Fumarate 2 puff 06/06/18 20:00 06/07/18 08:03 Symbicort 160-4.5 Mcg Inhaler INHALATION 2 puff RT-BID [facility] Administration Calcium Carbonate 1 each 06/07/18 12:00 06/07/18 12:46 Oscal 500+D PO 1 each 1200 [facility] Administration Diltiazem HCl 240 mg 06/08/18 09:00 Cardizem Cd PO DAILY [facility] Docusate Sodium 100 mg 06/06/18 21:00 06/07/18 08:21 Colace PO 100 mg BID [facility] Administration Ferrous Sulfate 325 mg 06/07/18 12:00 06/07/18 12:46 Feosol PO 325 mg 1200 [facility] Administration HCTZ/Losartan Potassium 2 each 06/07/18 09:00 06/07/18 08:21 Hyzaar 50-12.5 PO 2 each DAILY [facility] Administration Diltiazem HCl 50 mg/ Sodium 50 mls @ 5 mls/hr 06/06/18 13:45 06/07/18 11:53 Chloride IV 06/07/18 15:50 5 mg/hr .Q10H [facility] 5 mls/hr Administration 5 MG/HR Piperacillin Sod/Tazobactam 100 mls @ 25 mls/hr 06/06/18 17:00 06/07/18 08:21 Sod 3.375 gm/ Sodium Chloride IVPB 25 mls/hr Q8HR [facility] Administration Multivitamins 1 each 06/07/18 12:00 06/07/18 12:46 Theragran PO 1 each 1200 [facility] Administration Naloxone HCl 0.2 mg 06/06/18 16:48 Narcan IV Q2M PRN Opioid Reversal Pantoprazole Sodium 40 mg 06/06/18 17:30 06/07/18 07:41 Protonix PO 40 mg AC-BID [facility] Administration Potassium Chloride 20 meq 06/07/18 09:00 06/07/18 08:21 K-Dur 20 PO 20 meq DAILY [facility] Administration Intake and Output 06/06/18 06/07/18 06/07/18 22:59 06:59 14:59 Intake Total 528.583 35.75 880 Output Total 300 Balance 228.583 35.75 880 Intake: Amount of Fluid Infused ( 500 ml) Intake, IV Titration 28.583 35.75 700 Amount Diltiazem 50 mg In Sodium 28.583 35.75 0 Chloride 0.9% 40 ml @ 5 MG/HR 5 mls/hr IV .Q10H [facility] Rx#:[id number] Piperacillin-Tazobactam 3 100 .375 gm In Sodium Chloride 0.9% 100 ml @ 25 mls/hr IVPB Q8HR [facility] Rx# :[id number] Sodium Chloride 0.9% 1, 600 000 ml @ 75 mls/hr IV . [id number] [facility] Rx#:[id number] Oral 180 Output: Urine 300 Other: Voiding Method Bedpan Bedpan Bedpan # Voids 1 # Bowel Movements 1 Weight 54.5 kg 55.7 kg Patient Weight 06/08/18 06:59 Weight 55.7 kg 06/07/18 06:01 06/07/18 06:01
--- NOTE | 2018-06-07 12:42 | P.CNPUL ---
History of Present Illness Consult date: 05/27/18 Requesting physician: Michelle Mike Reason for consult: dyspnea, cough, COPD, pneumonia, abnormal CXR/CT Chief complaint: Dyspnea, cough, right lower lobe pneumonia History of present illness: This is a 78-year-old white female patient of Dr. Turner, with past medical history of stage IV COPD, on home oxygen, chronic A. fib, hypertension, hyperlipidemia, previous episodes of pneumonia, left breast cancer with mastectomy, who was brought in to the emergency department by ambulance on 06/06 after she sustained a fall at home last night. Patient apparently had being having increased weakness, some limited cough, fever and chills. She states she does not remember whether she lost consciousness, she laid on the floor and could not change positions. She denies any injuries. Patient lives by herself, and she remained on the floor until the arrival of the ambulance. Patient was tachycardic, hypotensive hypoxemic in the emergency department. IV hydration was started, patient was started on broad-spectrum antibiotics for possibility of pneumonia. Initial chest x-ray showed some chronic pulmonary fibrotic changes, but no acute findings. Follow-up chest x-ray on 06/07/2018 showed worsening right basilar airspace disease, possibly developing pneumonia. Patient was in A. fib RVR, with a rate of 114 BPM. Lab work was reviewed, showed WBC of 14.3, hemoglobin of 10.7, sodium 140, potassium is 3.8, chloride is 97, CO2 is 20, BUN of 38, creatinine is 1.63, troponin of 0.094, proBNP was 6150. Total CK was 333 and CK-MB of 7.5, urinalysis showed 1+ protein, trace ketones, and rare mucus and yeast. Influenza was not detected. Review of Systems All systems: negative Constitutional: Reports malaise, Reports weakness, Denies chills, Denies fever Eyes: denies blurred vision, denies pain Ears, nose, mouth and throat: Denies headache, Denies sore throat Cardiovascular: Denies chest pain, Denies shortness of breath Respiratory: Reports dyspnea, Reports home oxygen, Denies cough Gastrointestinal: Denies abdominal pain, Denies diarrhea, Denies nausea, Denies vomiting Genitourinary: Denies dysuria, Denies hematuria Musculoskeletal: Reports frequent falls, Reports gait dysfunction, Denies myalgias Integumentary: Denies pruritus, Denies rash Neurological: Reports gait dysfunction, Reports weakness, Denies numbness Psychiatric: Denies anxiety, Denies depression Endocrine: Denies fatigue, Denies weight change Past Medical History Past Medical History: Atrial Fibrillation, Cancer, COPD, Hyperlipidemia, Hypertension, Pneumonia, Syncope Additional Past Medical History / Comment(s): BREAST CANCER- LEFT MASTECTOMY, COUGHING UP BLOOD, HOME O2 2.5 LITERS N/C History of Any Multi-Drug Resistant Organisms: None Reported Past Surgical History: Breast Surgery Additional Past Surgical History / Comment(s): LEFT PARTICAL MASECTOMY, bilateral cataract removal-->implant, COLONOSCOPY Past Anesthesia/Blood Transfusion Reactions: No Reported Reaction Past Psychological History: No Psychological Hx Reported Additional Psychological History / Comment(s): Pt resides with her brother. She has a walker she uses if going longer distances. She has home oxygen which she wears at 2.5L/NC at nite. She has a nebulizer. Pt does not drive. She has missed appts due to ride problems. She has no current home care but after previous hospitalizations she has use [facility]. VERIFIED by Gamal Jiménez RN Smoking Status: Never smoker Past Alcohol Use History: None Reported Additional Past Alcohol Use History / Comment(s): PT STATED STOPPED SMOKING 1.5 MONHTS AGO Past Drug Use History: None Reported - Past Family History Father History Unknown: Yes Mother Additional Family Medical History / Comment(s): Mother at age 38 yrs. She was and labored for 52 hours and as a complication of that per pt. VERIFIED Sister(s) Family Medical History: CVA/TIA, Seizure Disorder Additional Family Medical History / Comment(s): at age 42 yrs from seizure/ CVA. Brother(s) Family Medical History: COPD, Diabetes Mellitus Additional Family Medical History / Comment(s): at age 61 yrs. Medications and Allergies Home Medications Medication Instructions Recorded Confirmed Type Jackson Cit/Mag/D3/Zn/High Density Talc Coater Operator/Leonard/Bor 1 tab PO DAILY 12/18/13 06/06/18 History [Citracal-Vit D + Magnesium Tab] Diltiazem Cd [Cardizem CD] 180 mg PO DAILY 12/18/13 06/06/18 History Losartan/Hydrochlorothiazide 1 tab PO DAILY 12/18/13 06/06/18 History [Hyzaar 100-25 Tablet] Potassium Chloride ER [K-Dur 20] 20 meq PO DAILY 12/18/13 06/06/18 History Docusate [Colace] 100 mg PO BID #60 cap 09/21/15 06/06/18 Rx Ipratropium-Albuterol Nebulize 3 ml INHALATION RT-QID #0 ampul.neb 09/21/15 Rx [Duoneb 0.5 mg-3 mg/3 ml Soln] Ferrous Sulfate [Iron (65 MG 325 mg PO DAILY 10/03/15 06/06/18 History Elemental)] Multivitamins, Thera [Multivitamin 1 tab PO DAILY #30 tablet 10/05/15 06/06/18 Rx (formulary)] Ipratropium/Albuterol Sulfate 1 puff INHALATION RT-QID 06/06/18 06/06/18 History [Combivent Respimat Inhaler] Pravastatin Sodium [Pravachol] 40 mg PO DAILY 06/06/18 06/06/18 History Rivaroxaban [Xarelto] 20 mg PO DAILY 06/06/18 06/06/18 History Allergies Allergy/AdvReac Type Severity Reaction Status Date / Time erythromycin base Allergy Unknown Verified 06/06/18 17:09 Macrolide Antibiotics Allergy Unknown Verified 06/06/18 17:09 azithromycin AdvReac Nausea & Verified 06/06/18 17:09 Vomiting Physical Exam Vitals: Vital Signs Temp Pulse Pulse Resp BP BP Pulse Ox 06/07/18 11:38 100 06/07/18 11:25 104 H 06/07/18 08:15 96 06/07/18 08:04 94 06/07/18 08:00 98.1 F 103 H 18 130/55 96 06/07/18 03:07 90 90/60 99 06/07/18 01:06 98 98/55 06/06/18 23:03 88 16 96/54 93 L 06/06/18 22:12 93 102/59 06/06/18 21:25 91 82/59 06/06/18 20:00 98.0 F 88 16 93/55 97 06/06/18 19:54 96 06/06/18 19:42 97 97 06/06/18 18:30 98.3 F 100 18 131/61 97 06/06/18 18:24 97.8 F 90 18 102/64 97 06/06/18 16:22 98.6 F 94 18 105/59 98 06/06/18 15:15 90 17 91/52 100 06/06/18 15:00 91 21 108/68 06/06/18 14:45 93 25 H 111/69 06/06/18 14:30 111/69 06/06/18 14:15 94 28 H 102/88 99 06/06/18 14:00 91 25 H 89/61 06/06/18 13:45 102 H 25 H 101/67 06/06/18 13:30 108 H 28 H 101/67 94 L 06/06/18 13:27 140 H 31 H 06/06/18 13:22 97.3 F L 94 18 89/67 87 L Intake and Output 06/06/18 06/07/18 06/07/18 22:59 06:59 14:59 Intake Total 528.583 35.75 880 Output Total 300 Balance 228.583 35.75 880 Intake: Amount of Fluid Infused ( 500 ml) Intake, IV Titration 28.583 35.75 700 Amount Diltiazem 50 mg In Sodium 28.583 35.75 0 Chloride 0.9% 40 ml @ 5 MG/HR 5 mls/hr IV .Q10H MARQUES Rx#:[id number] Piperacillin-Tazobactam 3 100 .375 gm In Sodium Chloride 0.9% 100 ml @ 25 mls/hr IVPB Q8HR MARQUES Rx# :[id number] Sodium Chloride 0.9% 1, 600 000 ml @ 75 mls/hr IV . [id number] STA Rx#:[id number] Oral 180 Output: Urine 300 Other: Voiding Method Bedpan Bedpan Bedpan # Voids 1 # Bowel Movements 1 Weight 54.5 kg GENERAL EXAM: Alert, pleasant, 78 -year-old elderly frail looking female, comfortable in no apparent distress. HEAD: Normocephalic/atraumatic. EYES: Normal reaction of pupils, equal size. Conjunctiva pink, sclera white. NOSE: Clear with pink turbinates. THROAT: No erythema or exudates. NECK: No masses, no JVD, no thyroid enlargement, no adenopathy. CHEST: No chest wall deformity. Symmetrical expansion. LUNGS: Equal air entry with crackles at the right lower lobe, measuring sounds bilaterally CVS: Regular rate and rhythm, normal S1 and S2, no gallops, no murmurs, no rubs ABDOMEN: Soft, nontender. No hepatosplenomegaly, normal bowel sounds, no guarding or rigidity. EXTREMITIES: No clubbing, no edema, no cyanosis, 2+ pulses and upper and lower extremities. Skin on lower extremities is dry and flaky MUSCULOSKELETAL: Muscle strength and tone normal. SPINE: No scoliosis or deformity SKIN: No rashes CENTRAL NERVOUS SYSTEM: Alert and oriented -3. No focal deficits, tone is normal in all 4 extremities. PSYCHIATRIC: Alert and oriented -3. Appropriate affect. Intact judgment and insight. Results - Laboratory Findings CBC and BMP: 06/07/18 06:01 06/07/18 06:01 Abnormal lab findings: Abnormal Labs 06/06/18 06/06/18 06/06/18 13:25 13:25 13:25 WBC 14.3 H RBC Hgb 10.7 L Hct MCHC 30.2 L Neutrophils # 12.7 H Lymphocytes # 0.7 L Chloride 97 L BUN 38 H Creatinine 1.63 H Glucose 119 H Calcium 11.8 H AST 43 H Alkaline Phosphatase 142 H Creatine Kinase Total Creatine Kinase 333 H CK-MB (CK-2) 7.5 H Troponin I 0.094 H* Urine Protein Urine Ketones Urine Mucus Urine Yeast (Budding) 06/06/18 06/07/18 06/07/18 15:25 06:01 06:01 WBC 12.8 H RBC 3.71 L Hgb 9.8 L Hct 33.1 L MCHC 29.6 L Neutrophils # 10.8 H Lymphocytes # Chloride BUN 42 H Creatinine 1.55 H Glucose Calcium 10.5 H AST Alkaline Phosphatase Creatine Kinase Total Creatine Kinase CK-MB (CK-2) Troponin I Urine Protein 1+ H Urine Ketones Trace H Urine Mucus Rare H Urine Yeast (Budding) Rare H 06/07/18 06:01 WBC RBC Hgb Hct MCHC Neutrophils # Lymphocytes # Chloride BUN Creatinine Glucose Calcium AST Alkaline Phosphatase Creatine Kinase 324 H Total Creatine Kinase CK-MB (CK-2) Troponin I Urine Protein Urine Ketones Urine Mucus Urine Yeast (Budding) - Diagnostic Findings Chest x-ray: report reviewed, image reviewed Additional studies: EKG reviewed Assessment and Plan Plan: Assessment: #1. Acute on chronic hypoxic respiratory failure secondary to right lower lobe pneumonia, community-acquired #2. A. fib RVR #3. Fall at home, and patient was on the floor for a period of time #4. Dehydration #5. Acute kidney injury #6. Elevated troponins #7. Advanced stage IV COPD with the baseline FEV1 of 0.67 L or 31% predicted on home oxygen #8. Hypertension #9. Hyperlipidemia #10. Previous history of pneumonia #11. History of left breast cancer status post mastectomy Plan: Continue fluids, nebulized bronchodilators, Cardizem drip for rate control, current antibiotics. Try to get a sputum culture. Chest x-ray were reviewed by Dr. Salgado, today's chest x-ray shows worsening of the right basilar airspace disease, possibly developing pneumonia. We'll continue to follow I performed a history & physical examination of the patient and discussed their management with my nurse practitioner, Olena Maddox. I reviewed the nurse practitioner's note and agree with the documented findings and plan of care. Lung sounds are diminished with right lower lobe crackles. The findings and the impression was discussed with the patient. I attest to the documentation by the nurse practitioner. Time with Patient: Greater than 30
[2018-06-07] MEDS: MULTIVITAMINS, THERA 1 EACH TAB PO SCH (12:46)
[2018-06-07] MEDS: CALCIUM CARB-VIT D 500MG-200UN 1 EACH TAB PO SCH (12:46)
[2018-06-07] MEDS: FERROUS SULFATE 325 MG TAB PO SCH (12:46)
[2018-06-07] MEDS: SODIUM CHLORIDE 0.9% 1,000 ML IV SCH (15:36)
[2018-06-07] MEDS: DILTIAZEM CD 240 MG CAP.ER.24H PO SCH (15:41)
[2018-06-07] MEDS: ACETAMINOPHEN TAB 325 MG TAB PO PRN ×2 (15:42→22:04)
--- NOTE | 2018-06-07 18:26 | CT ---
EXAMINATION TYPE: CT brain wo con DATE OF EXAM: 06/07/2018 HISTORY: Rule out bleed. Poor historian. Altered mental status. CT DLP: 1225 mGycm. Automated Exposure Control for Dose Reduction was Utilized. TECHNIQUE: CT scan of the head is performed without contrast. COMPARISON: None. FINDINGS: There is no acute intracranial hemorrhage or midline shift identified. There is diffuse v entricular and sulcal prominence consistent with diffuse age-related cerebral atrophy. There is low- attenuation in the periventricular white matter consistent with chronic small vessel ischemic change. The globes are intact and the visualized sinuses are clear. The calvarium is intact. There is non specific expansile lytic lesion measuring oval 3.2 x 1.9 cm right maxilla by 1.7 cm craniocaudal dime nsion axial image 14 and coronal image 9. Consider ameloblastoma among possible broad differential. IMPRESSION: No acute intracranial hemorrhage or midline shift. There is mild to moderate diffuse ag e-related cerebral atrophy and chronic small vessel ischemic change noted. Right maxillary lesion no codey.
--- NOTE | 2018-06-07 19:47 | PN ---
PROGRESS NOTE DATE OF SERVICE: 06/07/2018 This 78-year-old woman was admitted with fall and weakness also had bilateral pneumonia. Influenza is negative. The patient on broad-spectrum IV antibiotics. Multiple consultants including Cardiology and Pulmonology. Dr. Carr is following the patient closely. Cardiology is following the patient for paroxysmal atrial fibrillation Cardizem has been discontinued at this time. The patient being closely monitored. The patient continues to be confused. Dr. Carr saw the patient for right lower lobe pneumonia. The patient is being closely monitored at this time. PAST MEDICAL HISTORY: Reviewed. REVIEW OF SYSTEMS: CARDIOVASCULAR: No chest pain or palpitations. RESPIRATION: As mentioned earlier. GI as mentioned earlier. : As mentioned earlier. CENTRAL NERVOUS SYSTEM: No numbness or weakness. CURRENT MEDICATIONS ARE: 1. Tylenol 650 q.6h p.r.n. 2. Tillman 5 mg. 3. DuoNeb q.i.d. and p.r.n. 4. Symbicort 160/4.5. 5. Os-Jackson with vitamin D. 6. Cardizem CD 240 mg. 7. Colace 100 mg p.o. b.i.d. 8. Iron sulfate 320 mg p.o. daily. 9. Narcan 0.2 q.2h p.r.n. 10.Protonix 40 mg b.i.d. 11.Zosyn 3.37 IV q.8h. 12.Lasix 20 mg daily. 13.Sodium bicarb. PHYSICAL EXAM: Patient is alert, oriented x1. Pulse is 95, blood pressure 87/50, respiration 18, temperature 98 degrees, pulse ox 94% on 4 L. HEENT: Conjunctivae normal. Oral mucosa moist. Neck is no jugular venous distention. No carotid bruit. No lymph node enlargement. Cardiovascular: S1, S2 muffled. Respiratory: Breath sounds diminished in the bases. Scattered rhonchi and crackles, right more than the left. ABDOMEN: Soft, nontender. Legs are no edema. No swelling. CENTRAL NERVOUS SYSTEM: Diffusely weak. LAB INVESTIGATIONS: Lab investigations at this time shows WBC 12.2, hemoglobin 9.8. The creatinine kinase is 324. ASSESSMENT: 1. Fall and weakness possible right lower lobe pneumonia, consider gram-negative aspiration pneumonia with possible sepsis present on admission. 2. Influenza, ruled out. 3. Congestive heart failure, unlikely. 4. Dehydration. 5. Increased creatinine with possible acute renal failure. 6. Increased WBC. 7. History of atrial fibrillation with fast ventricular rate. 8. History of chronic obstructive pulmonary disease. 9. History of hypertension. 10.Hyperlipidemia. 11.History of pneumonia. 12.History of breast cancer, left mastectomy. 13.Remote history of nicotine dependence. 14.FULL CODE. RECOMMENDATIONS AND DISCUSSION: I recommend to continue current medications, management. Continue monitoring. Symptomatic treatment. Otherwise, at this time, I recommend continue with current medications. Continue with broad-spectrum IV antibiotics. Cultures are negative. Influenza is negative. Closely follow with Dr. hidalgo. Further recommendations to follow. See orders for details. MMODL / IJN: [id number] / PABLO
[2018-06-07] MEDS: ATORVASTATIN 20 MG TAB PO SCH (20:27)
--- NOTE | 2018-06-07 20:59 | CT ---
EXAMINATION TYPE: CT soft tissue neck wo con DATE OF EXAM: 06/07/2018 HISTORY: Trauma injury with neck pain rule out bleed. COMPARISON: NONE CT DLP: 277.2 mGycm. Automated Exposure Control for Dose Reduction was Utilized. TECHNIQUE: CT scan of the neck is performed without IV contrast, axial images are obtained, coronal and sagittal reformatted images are reviewed. FINDINGS: Examination was suboptimal due to lack of IV contrast which limits evaluation for mucosal l esions and neck adenopathy. Airway: There is at least moderate emphysematous change of visualized upper lungs. Subcentimeter thyr oid nodule felt present lower pole right thyroid axial image 21. Airway is patent. Parotid/submandibular glands: No gross abnormality seen. Carotid/Vascular Structures: Severe calcified plaque bilateral carotid bulbs is present . Consider ca rotid ultrasound follow-up to exclude significant focal stenosis. Osseous Structures: Osseous structures are demineralized. There is dextroconvex scoliosis seen. There are numerous lytic and sclerotic destructive lesions throughout the cervical thoracic spine, for ref erence a large lytic lesion is seen posterior T3 vertebral body level axial image 9. Superior sternal lytic lesions are present. Mild compression fracture T4 level is presumed chronic. Other: No definitive greater than 1 cm neck adenopathy is seen. There is rotation identified making e valuation suboptimal. IMPRESSION: Diffuse osseous metastatic disease is felt present with numerous lytic and sclerotic lesi ons identified. This may be etiology of visualized right maxillary lesion seen on same-day brain CT. A Yellow level critical message alert has been initiated for Michelle Mike MD via the [employer] Critical Results System on 06/07/2018 8:57 PM. This message alert has been sent to Michelle Mike MD via the preferences provided by the clinician for the receipt of Radiology Critical Findings. [employer] e ID [id number].
[2018-06-07] MEDS ORDERED: HEPARIN SODIUM,PORCINE 5,000 UNIT/ML 1 ML VIAL SQ SCH (21:00)
[2018-06-08] MEDS: SODIUM CHLORIDE 0.9% 1,000 ML IV SCH ×2 (02:14→14:37)
[2018-06-08] MEDS: PANTOPRAZOLE 40 MG TABLET PO SCH ×2 (06:05→14:50)
[2018-06-08 06:41] LABS: Basophils % (A) 0 %; Eosinophils # (A) 0.2 k/uL (0-0.7); Eosinophils % (A) 2 %; HCT 28.7 % (34.0-46.0); HGB 8.8 gm/dL (11.4-16.0); Hypochromasia Marked; Lymphocytes # (A) 0.9 k/uL (1.0-4.8); Lymphocytes % (A) 10 %; MCH 27.3 pg (25.0-35.0); MCHC 30.6 g/dL (31.0-37.0); Mean Platelet Volume 7.4; Monocytes # (A) 0.5 k/uL (0-1.0); Monocytes % (A) 6 %; Neutrophils % (A) 81 %; Platelet Count 209 k/uL (150-450); RBC 3.23 m/uL (3.80-5.40); RDW 14.9 % (11.5-15.5); WBC 8.6 k/uL (3.8-10.6)
[2018-06-08 07:03] LABS: Calcium 10.1 mg/dL (8.4-10.2); Potassium 3.1 mmol/L (3.5-5.1)
[2018-06-08] MEDS: IPRATROPIUM-ALBUTEROL 3 ML NEB INHALATION SCH ×4 (07:57→20:27)
[2018-06-08] MEDS: SYMBICORT 160-4.5 MCG INHALER INHALATION SCH ×2 (07:57→20:27)
[2018-06-08] MEDS: PIPERACILLIN-TAZOBACTAM 3.375 GM in SODIUM CHLORIDE 0.9% 100 ML IVPB SCH ×3 (08:47→22:37)
[2018-06-08] MEDS: RIVAROXABAN 20 MG TAB PO SCH (08:50)
[2018-06-08] MEDS: POTASSIUM CHLORIDE ER 20 MEQ TAB.ER PO SCH ×3 (08:53→14:50)
[2018-06-08] MEDS: THIAMINE 100 MG TAB PO SCH (08:54)
[2018-06-08] MEDS: FOLIC ACID 1 MG TAB PO SCH (08:54)
[2018-06-08] MEDS: DILTIAZEM CD 240 MG CAP.ER.24H PO SCH (08:54)
[2018-06-08] MEDS: MULTIVITAMINS, THERA 1 EACH TAB PO SCH (08:54)
[2018-06-08] MEDS: FERROUS SULFATE 325 MG TAB PO SCH (08:54)
[2018-06-08] MEDS: DOCUSATE 100 MG CAP PO SCH ×2 (08:54→21:03)
[2018-06-08] MEDS: CALCIUM CARB-VIT D 500MG-200UN 1 EACH TAB PO SCH (08:55)
[2018-06-08] MEDS ORDERED: DILTIAZEM CD 240 MG CAP.ER.24H PO SCH (09:00)
[2018-06-08] MEDS: HYDROcodone/APAP 5-325MG 1 EACH TAB PO PRN ×2 (11:13→21:14)
--- NOTE | 2018-06-08 12:25 | ECHOF ---
Referral Reason:chf MEASUREMENTS -------- HEIGHT: 165.1 cm WEIGHT: 57.2 kg BP: 96/57 IVSd: 1.4 cm (0.6 - 1.1) LVIDd: 2.4 cm (3.9 - 5.3) LVPWd: 1.4 cm (0.6 - 1.1) IVSs: 1.7 cm LVIDs: 1.0 cm LVPWs: 1.6 cm Ao Diam: 2.6 cm (2.0 - 3.7) AV Cusp: 1.8 cm (1.5 - 2.6) LA Diam: 3.5 cm (2.7 - 3.8) MV E Gama: 1.08 m/s MV DecT: 190 ms MV A Gama: 0.49 m/s MV E/A Ratio: 2.19 RAP: 20.00 mmHg RVSP: 42.89 mmHg FINDINGS -------- Atrial fibrillation. This was a technically good study. The left ventricular size is normal. There is moderate concentric left ventricular hypertrophy. O verall left ventricular systolic function is normal with, an EF between 55 - 60 %. The right ventricle is normal in size and function. The left atrial size is normal. The right atrium is normal in size. Aortic valve is trileaflet and is mildly thickened. The mitral valve leaflets are mildly thickened. Mild mitral annular calcification present. Mild m itral regurgitation is present. Mild tricuspid regurgitation present. The right ventricular systolic pressure, as measured by Doppl er, is 42.89mmHg. Pulmonic valve appears structurally normal. The aortic root size is normal. The inferior vena cava is dilated with no significant inspiratory collapse which is consistent estima codey right atrial pressure of >20 mmHg. The pericardium is normal. CONCLUSIONS -------- 1. Atrial fibrillation. 2. This was a technically good study. 3. The left ventricular size is normal. 4. There is moderate concentric left ventricular hypertrophy. 5. Overall left ventricular systolic function is normal with, an EF between 55 - 60 %. 6. The right ventricle is normal in size and function. 7. The left atrial size is normal. 8. The right atrium is normal in size. 9. Aortic valve is trileaflet and is mildly thickened. 10. The mitral valve leaflets are mildly thickened. 11. Mild mitral annular calcification present. 12. Mild mitral regurgitation is present. 13. Mild tricuspid regurgitation present. 14. The right ventricular systolic pressure, as measured by Doppler, is 42.89mmHg. 15. Pulmonic valve appears structurally normal. 16. The aortic root size is normal. 17. The inferior vena cava is dilated with no significant inspiratory collapse which is consistent es timated right atrial pressure of >20 mmHg. 18. The pericardium is normal. CONTROLS OPERATOR MOLDED GOODS: Carmen Alonzo RDCS
[2018-06-08] MEDS ORDERED: Potassium Replacement Protocol 1 EACH MISC MISCELLANE PRN (13:49)
--- NOTE | 2018-06-08 13:52 | P.PN ---
Subjective Progress Note Date: 06/08/18 Principal diagnosis: Acute on chronic hypoxic respiratory failure secondary to right lower lobe pneumonia, community-acquired, A. fib RVR This is a 78-year-old white female patient of Dr. Turner, with past medical history of stage IV COPD, on home oxygen, chronic A. fib, hypertension, hyperlipidemia, previous episodes of pneumonia, left breast cancer with mastectomy, who was brought in to the emergency department by ambulance on 06/06 after she sustained a fall at home last night. Patient apparently had being having increased weakness, some limited cough, fever and chills. She states she does not remember whether she lost consciousness, she laid on the floor and could not change positions. She denies any injuries. Patient lives by herself, and she remained on the floor until the arrival of the ambulance. Patient was tachycardic, hypotensive hypoxemic in the emergency department. IV hydration was started, patient was started on broad-spectrum antibiotics for possibility of pneumonia. Initial chest x-ray showed some chronic pulmonary fibrotic changes, but no acute findings. Follow-up chest x-ray on 06/07/2018 showed worsening right basilar airspace disease, possibly developing pneumonia. Patient was in A. fib RVR, with a rate of 114 BPM. Lab work was reviewed, showed WBC of 14.3, hemoglobin of 10.7, sodium 140, potassium is 3.8, chloride is 97, CO2 is 20, BUN of 38, creatinine is 1.63, troponin of 0.094, proBNP was 6150. Total CK was 333 and CK-MB of 7.5, urinalysis showed 1+ protein, trace ketones, and rare mucus and yeast. Influenza was not detected. On 06/08/2018 patient seen in follow-up on selective care unit, she is awake and alert, sitting up in the chair, in no acute distress. Pulse ox on 4 L per nasal cannula is 98%, she is afebrile, hemodynamically stable. Remains on IV hydration, 0.9 normal saline at a rate of 100 ML per hour. Blood and urine cultures are negative thus far. Lung sounds are positive for some scattered rhonchi. Today's labs have been reviewed, WBCs 8.6, hemoglobin is 8.8, sodium is 142, potassium is 3.1, chloride is 105, CO2 is 30, BUN is 34, creatinine is 1.16. Fluids a screen was not detected. She denies any chest pain. Brain CT was completed and showed no acute intracranial hemorrhage or midline shift, mild to moderate diffuse age-related cerebral atrophy and small chronic ischemic changes. Echocardiogram showed left ventricular systolic function with an EF between 55 and 60%, mild tricuspid regurgitation, mild mitral regurgitation, mild pulmonary hypertension with the right-sided pressures of 42 mmHg. Objective - Vital Signs Vital signs: Vital Signs Temp 97.9 F 06/08/18 11:07 Pulse 90 06/08/18 11:44 Resp 18 06/08/18 11:36 BP 112/65 06/08/18 11:07 Pulse Ox 98 06/08/18 11:07 Intake & Output 06/07/18 06/08/18 06/08/18 18:59 06:59 18:59 Intake Total 1570 480 Output Total 600 Balance 970 480 Weight 55.7 kg 57.5 kg Intake: Intake, IV Titration 1150 Amount Diltiazem 50 mg In Sodium 0 Chloride 0.9% 40 ml @ 5 MG/HR 5 mls/hr IV .Q10H [facility] Rx#:[id number] Piperacillin-Tazobactam 3 100 .375 gm In Sodium Chloride 0.9% 100 ml @ 25 mls/hr IVPB Q8HR [facility] Rx# :[id number] Sodium Chloride 0.9% 1, 450 000 ml @ 75 mls/hr IV . [id number] [facility] Rx#:[id number] Sodium Chloride 0.9% 1, 600 000 ml @ 75 mls/hr IV . [id number] STA Rx#:[id number] Oral 420 480 Output: Urine 600 Other: Voiding Method Bedpan Bedpan # Voids 3 - Exam GENERAL EXAM: Alert, pleasant, 78 -year-old elderly frail looking female, comfortable in no apparent distress. HEAD: Normocephalic/atraumatic. EYES: Normal reaction of pupils, equal size. Conjunctiva pink, sclera white. NOSE: Clear with pink turbinates. THROAT: No erythema or exudates. NECK: No masses, no JVD, no thyroid enlargement, no adenopathy. CHEST: No chest wall deformity. Symmetrical expansion. LUNGS: Equal air entry with scattered rhonchi CVS: Regular rate and rhythm, normal S1 and S2, no gallops, no murmurs, no rubs ABDOMEN: Soft, nontender. No hepatosplenomegaly, normal bowel sounds, no guarding or rigidity. EXTREMITIES: No clubbing, no edema, no cyanosis, 2+ pulses and upper and lower extremities. Skin on lower extremities is dry and flaky MUSCULOSKELETAL: Muscle strength and tone normal. SPINE: No scoliosis or deformity SKIN: No rashes CENTRAL NERVOUS SYSTEM: Alert and oriented -3. No focal deficits, tone is normal in all 4 extremities. PSYCHIATRIC: Alert and oriented -3. Appropriate affect. Intact judgment and insight. - Labs CBC & Chem 7: 06/08/18 06:14 06/08/18 06:14 Labs: Abnormal Lab Results - Last 24 Hours (Table) 06/08/18 06/08/18 Range/Units 06:14 06:14 RBC 3.23 L (3.80-5.40) m/uL Hgb 8.8 L (11.4-16.0) gm/dL Hct 28.7 L (34.0-46.0) % MCHC 30.6 L (31.0-37.0) g/dL Lymphocytes # 0.9 L (1.0-4.8) k/uL Potassium 3.1 L (3.5-5.1) mmol/L BUN 34 H (7-17) mg/dL Creatinine 1.16 H (0.52-1.04) mg/dL Glucose 107 H (74-99) mg/dL Microbiology - Last 24 Hours (Table) 06/06/18 10:05 Urine Culture - Final Urine,Clean Catch 06/06/18 13:25 Blood Culture - Preliminary Blood No Growth after 24 hours Assessment and Plan Plan: Assessment: #1. Acute on chronic hypoxic respiratory failure secondary to right lower lobe pneumonia, community-acquired #2. A. fib RVR #3. Fall at home, and patient was on the floor for a period of time #4. Dehydration #5. Acute kidney injury #6. Elevated troponins #7. Advanced stage IV COPD with the baseline FEV1 of 0.67 L or 31% predicted on home oxygen #8. Hypertension #9. Hyperlipidemia #10. Previous history of pneumonia #11. History of left breast cancer status post mastectomy Plan: Continue current antibiotics, continue nebulized bronchodilators, IV fluids, sputum for culture. Patient's heart rate is better controlled, she is afebrile. She is much more awake, and responsive on today's exam. Renal profile is improving. Repeat chest x-ray in the morning. We'll continue to follow I performed a history & physical examination of the patient and discussed their management with my nurse practitioner, Olena Maddox. I reviewed the nurse practitioner's note and agree with the documented findings and plan of care. Lung sounds are diminished with right lower lobe crackles. The findings and the impression was discussed with the patient. I attest to the documentation by the nurse practitioner. Time with Patient: Less than 30
--- NOTE | 2018-06-08 16:51 | P.PN ---
Subjective Progress Note Date: 06/08/18 Progress note being dictated for Dr. Mike. Interval history: This a 78-year-old female admitted with generalized weakness, status post fall, bilateral pneumonia and multiple other medical issues. Tested negative for influenza. Maintained on broad-spectrum IV antibiotics. Sitting up in chair, breathing improving, more alert. Maintaining O2 sats in the high 90s on 4 L nasal cannula.Receiving potassium replacements for potassium 3.1. Echo reporting normal LV function, EF 55-60%, moderate concentric left ventricular hypertrophy. Brain CT reporting no acute intracranial hemorrhage or midline shift, mild to moderate diffuse cerebral atrophy, chronic small vessel disease, right maxillary lesion noted. CT of neck reporting diffuse osseous metastatic disease with numerous lytic and sclerotic lesions identified possible etiology of right maxillary lesion on brain CT. afebrile, leukocytosis resolved, preliminary blood, urine cultures negative. Maintained on IV fluid hydration with renal function improving. Objective - Vital Signs Vital signs: Vital Signs Temp 97.9 F 06/08/18 14:54 Pulse 100 06/08/18 16:04 Resp 18 06/08/18 16:00 BP 100/58 06/08/18 14:54 Pulse Ox 96 06/08/18 14:54 Intake & Output 06/07/18 06/08/18 06/08/18 18:59 06:59 18:59 Intake Total 1570 480 Output Total 600 Balance 970 480 Weight 55.7 kg 57.5 kg Intake: Intake, IV Titration 1150 Amount Diltiazem 50 mg In Sodium 0 Chloride 0.9% 40 ml @ 5 MG/HR 5 mls/hr IV .Q10H [facility] Rx#:[id number] Piperacillin-Tazobactam 3 100 .375 gm In Sodium Chloride 0.9% 100 ml @ 25 mls/hr IVPB Q8HR [facility] Rx# :[id number] Sodium Chloride 0.9% 1, 450 000 ml @ 75 mls/hr IV . [id number] [facility] Rx#:[id number] Sodium Chloride 0.9% 1, 600 000 ml @ 75 mls/hr IV . [id number] STA Rx#:[id number] Oral 420 480 Output: Urine 600 Other: Voiding Method Bedpan Bedpan # Voids 3 - Exam PHYSICAL EXAM: VITAL SIGNS: As above GENERAL: Sitting up in chair, more alert, in no acute distress HEENT: Conjunctivae normal. eyes normal. Oral mucosa moist NECK: No JVD. No thyroid enlargement. No LNs CARDIOVASCULAR: S1, S2 muffled. No murmur RESPIRATION: Breath sounds diminished in the bases. Scattered rhonchi , no crackles. no wheezing. ABDOMEN: Soft, nontender . No guarding. no masses palpable. Bowel sounds heard. LEGS: No edema. no swelling PSYCHIATRY: Alert and oriented -3, mood and affect normal. NERVOUS SYSTEM: Cranial N 2-12 grossly normal. Moves all 4 limbs. Diffuse weakness No focal deficits. Skin: no rash Joints: No active swelling. No inflammation. Lymphatic system. No LN neck axilla or groin. Microbiology 06/06/18 10:05 Urine,Clean Catch Urine Culture - Final 06/06/18 13:25 Blood Blood Culture - Preliminary No Growth after 24 hours - Labs CBC & Chem 7: 06/08/18 06:14 06/08/18 06:14 Labs: Abnormal Lab Results - Last 24 Hours (Table) 06/08/18 06/08/18 Range/Units 06:14 06:14 RBC 3.23 L (3.80-5.40) m/uL Hgb 8.8 L (11.4-16.0) gm/dL Hct 28.7 L (34.0-46.0) % MCHC 30.6 L (31.0-37.0) g/dL Lymphocytes # 0.9 L (1.0-4.8) k/uL Potassium 3.1 L (3.5-5.1) mmol/L BUN 34 H (7-17) mg/dL Creatinine 1.16 H (0.52-1.04) mg/dL Glucose 107 H (74-99) mg/dL Microbiology - Last 24 Hours (Table) 06/06/18 10:05 Urine Culture - Final Urine,Clean Catch 06/06/18 13:25 Blood Culture - Preliminary Blood No Growth after 24 hours Assessment and Plan Assessment: -Old and weakness, possible right lower lobe pneumonia, consider gram-negative aspiration pneumonia with possible sepsis present on admission -Influenza ruled out -Congestive heart failure, unlikely -Dehydration -Acute renal failure -Diffuse osseous metastatic disease with numerous lytic and sclerotic lesions throughout cervical thoracic spine per CT -Right maxillary lesion per brain CT. -History of breast cancer, left mastectomy -Remote history of nicotine dependence -History of atrial fibrillation with RVR -Hypertension -Hyperlipidemia -History of COPD -Hypokalemia Plan: Continue current medication regime ,monitoring and symptomatic treatment. Maintain IV fluid hydration, nebulized bronchodilators. Oncology consulted regarding metastatic disease reported per radiology testing. Potassium currently being supplemented, recheck potassium level this afternoon. Close monitoring of renal function and electrolytes with repeat labs in a.m. ordered. PT/OT, potential subacute rehab at discharge. Follow closely with cardiology and pulmonary. The impression and plan of care has been dictated as directed. : I performed a history and examination of this patient, discussed the same with the dictator. I agree with the dictator's note ,documented as a scribe. Any additional findings or plans will be noted.
[2018-06-08] MEDS: ATORVASTATIN 20 MG TAB PO SCH (21:14)
[2018-06-09] MEDS: IPRATROPIUM-ALBUTEROL 3 ML NEB INHALATION SCH ×4 (05:12→19:05)
[2018-06-09] MEDS: SYMBICORT 160-4.5 MCG INHALER INHALATION SCH ×2 (05:16→19:09)
[2018-06-09] MEDS: SODIUM CHLORIDE 0.9% 1,000 ML IV SCH ×2 (06:05→21:16)
[2018-06-09] MEDS: PANTOPRAZOLE 40 MG TABLET PO SCH ×2 (06:05→17:41)
[2018-06-09 06:23] LABS: Glucose,Whole Blood 99 mg/dL (75-99)
[2018-06-09 07:27] LABS: Basophils % (A) 0 %; Eosinophils # (A) 0.2 k/uL (0-0.7); Eosinophils % (A) 3 %; HCT 29.5 % (34.0-46.0); HGB 8.6 gm/dL (11.4-16.0); Hypochromasia Marked; Lymphocytes # (A) 0.8 k/uL (1.0-4.8); Lymphocytes % (A) 10 %; MCH 26.3 pg (25.0-35.0); MCHC 29.2 g/dL (31.0-37.0); MCV 90.1 fL (80.0-100.0); Mean Platelet Volume 7.1; Monocytes # (A) 0.4 k/uL (0-1.0); Monocytes % (A) 5 %; Neutrophils # (A) 6.6 k/uL (1.3-7.7); Neutrophils % (A) 80 %; Platelet Count 262 k/uL (150-450); RBC 3.28 m/uL (3.80-5.40); RDW 14.8 % (11.5-15.5); WBC 8.2 k/uL (3.8-10.6)
[2018-06-09 07:43] LABS: Calcium 10.2 mg/dL (8.4-10.2); Potassium 4.1 mmol/L (3.5-5.1)
[2018-06-09] MEDS ORDERED: POTASSIUM CHLORIDE ER 20 MEQ TAB.ER PO SCH (08:00)
--- NOTE | 2018-06-09 08:18 | XR ---
EXAMINATION TYPE: XR chest 2V DATE OF EXAM: 06/09/2018 COMPARISON: 08/08/2017 HISTORY: 78 year-old female shortness of breath, follow-up right lower lobe pneumonia TECHNIQUE: AP and lateral views FINDINGS: Heart remains upper limits of normal in size. Rightward patient rotation ultrasound normal cardiac me diastinal contours. Patchy interstitial and airspace opacities are present throughout with continued small pleural effusions with bibasilar capacities. Increased retrosternal clear space. IMPRESSION: Continued COPD with multifocal patchy interstitial and airspace opacities along with small effusions. Correlate for possible sequela of CHF. Underlying infiltrate should be excluded on a clinical basis.
[2018-06-09] MEDS: PIPERACILLIN-TAZOBACTAM 3.375 GM in SODIUM CHLORIDE 0.9% 100 ML IVPB SCH ×3 (08:30→22:59)
[2018-06-09] MEDS: POTASSIUM CHLORIDE ER 20 MEQ TAB.ER PO SCH (08:30)
[2018-06-09] MEDS: RIVAROXABAN 20 MG TAB PO SCH (08:31)
[2018-06-09] MEDS: DOCUSATE 100 MG CAP PO SCH ×2 (08:31→20:21)
[2018-06-09] MEDS: DILTIAZEM CD 240 MG CAP.ER.24H PO SCH (08:31)
[2018-06-09] MEDS: HYDROcodone/APAP 5-325MG 1 EACH TAB PO PRN ×2 (08:33→18:34)
[2018-06-09] MEDS: IPRATROPIUM-ALBUTEROL 3 ML NEB INHALATION PRN (08:50)
--- NOTE | 2018-06-09 11:20 | PN ---
PROGRESS NOTE HISTORY: The patient is a lady with COPD, atrial fibrillation, rapid ventricular rate. She is doing better today. Her ventricular rate is much better. S1 and S2 heard normally. Irregular rhythm noted. Short systolic murmur noted. Lungs reveal improved air entry. Abdomen and lower extremity exams are unchanged. PLAN: Continue current medications, increase activity, and we will see further input from Pulmonology and hopefully she can be discharged soon. Her respiratory status is not optimal yet. MMODL / IJN: [id number] /
[2018-06-09] MEDS: THIAMINE 100 MG TAB PO SCH (12:05)
[2018-06-09] MEDS: FOLIC ACID 1 MG TAB PO SCH (12:05)
[2018-06-09] MEDS: FERROUS SULFATE 325 MG TAB PO SCH (12:05)
[2018-06-09] MEDS: MULTIVITAMINS, THERA 1 EACH TAB PO SCH (12:05)
[2018-06-09] MEDS: ACETAMINOPHEN TAB 325 MG TAB PO PRN ×2 (12:05→22:59)
[2018-06-09] MEDS: CALCIUM CARB-VIT D 500MG-200UN 1 EACH TAB PO SCH (12:05)
--- NOTE | 2018-06-09 13:00 | P.PN ---
Subjective Progress Note Date: 06/09/18 Principal diagnosis: Acute on chronic hypoxic respiratory failure secondary to right lower lobe pneumonia, community-acquired, A. fib RVR This is a 78-year-old white female patient of Dr. Turner, with past medical history of stage IV COPD, on home oxygen, chronic A. fib, hypertension, hyperlipidemia, previous episodes of pneumonia, left breast cancer with mastectomy, who was brought in to the emergency department by ambulance on 06/06 after she sustained a fall at home last night. Patient apparently had being having increased weakness, some limited cough, fever and chills. She states she does not remember whether she lost consciousness, she laid on the floor and could not change positions. She denies any injuries. Patient lives by herself, and she remained on the floor until the arrival of the ambulance. Patient was tachycardic, hypotensive hypoxemic in the emergency department. IV hydration was started, patient was started on broad-spectrum antibiotics for possibility of pneumonia. Initial chest x-ray showed some chronic pulmonary fibrotic changes, but no acute findings. Follow-up chest x-ray on 06/07/2018 showed worsening right basilar airspace disease, possibly developing pneumonia. Patient was in A. fib RVR, with a rate of 114 BPM. Lab work was reviewed, showed WBC of 14.3, hemoglobin of 10.7, sodium 140, potassium is 3.8, chloride is 97, CO2 is 20, BUN of 38, creatinine is 1.63, troponin of 0.094, proBNP was 6150. Total CK was 333 and CK-MB of 7.5, urinalysis showed 1+ protein, trace ketones, and rare mucus and yeast. Influenza was not detected. On 06/08/2018 patient seen in follow-up on selective care unit, she is awake and alert, sitting up in the chair, in no acute distress. Pulse ox on 4 L per nasal cannula is 98%, she is afebrile, hemodynamically stable. Remains on IV hydration, 0.9 normal saline at a rate of 100 ML per hour. Blood and urine cultures are negative thus far. Lung sounds are positive for some scattered rhonchi. Today's labs have been reviewed, WBCs 8.6, hemoglobin is 8.8, sodium is 142, potassium is 3.1, chloride is 105, CO2 is 30, BUN is 34, creatinine is 1.16. Fluids a screen was not detected. She denies any chest pain. Brain CT was completed and showed no acute intracranial hemorrhage or midline shift, mild to moderate diffuse age-related cerebral atrophy and small chronic ischemic changes. Echocardiogram showed left ventricular systolic function with an EF between 55 and 60%, mild tricuspid regurgitation, mild mitral regurgitation, mild pulmonary hypertension with the right-sided pressures of 42 mmHg. On 06/09/2018 patient seen in follow-up on selective care unit, she is awake alert, sitting up in the chair, in no acute distress, denies any difficulty breathing, she is currently on 4 L per nasal cannula and her pulse ox is 98%, she is hemodynamically stable, remains in A. fib, and the rate is better controlled, 90 BPM, afebrile. Lung sounds are diminished with some minimal scattered rhonchi and wheezing. Today's lab work has been reviewed, WBC is 8.2 , hemoglobin is 8.6, electrolytes are within normal limits, renal profile continues to improve, BUN is 19 and creatinine 0.98. Today's chest x-ray shows COPD, multifocal patchy interstitial and airspace opacities along the bases with small effusions. Clinically patient remains stable, preliminary Gram stain of sputum showed no organisms, patient is covered empirically with Zosyn, she is on nebulized bronchodilators, Symbicort. Objective - Vital Signs Vital signs: Vital Signs Temp 98.1 F 06/09/18 08:00 Pulse 90 06/09/18 11:58 Resp 18 06/09/18 11:58 BP 116/76 06/09/18 11:58 Pulse Ox 98 06/09/18 11:58 Intake & Output 06/08/18 06/09/18 06/09/18 18:59 06:59 18:59 Intake Total 240 480 240 Output Total 300 Balance -60 480 240 Weight 58 kg Intake: Oral 240 480 240 Output: Urine 300 Other: Voiding Method Bedpan # Voids 1 1 # Bowel Movements 1 0 - Exam GENERAL EXAM: Alert, pleasant, 78 -year-old elderly frail looking female, comfortable in no apparent distress. HEAD: Normocephalic/atraumatic. EYES: Normal reaction of pupils, equal size. Conjunctiva pink, sclera white. NOSE: Clear with pink turbinates. THROAT: No erythema or exudates. NECK: No masses, no JVD, no thyroid enlargement, no adenopathy. CHEST: No chest wall deformity. Symmetrical expansion. LUNGS: Equal air entry with scattered rhonchi CVS: Regular rate and rhythm, normal S1 and S2, no gallops, no murmurs, no rubs ABDOMEN: Soft, nontender. No hepatosplenomegaly, normal bowel sounds, no guarding or rigidity. EXTREMITIES: No clubbing, no edema, no cyanosis, 2+ pulses and upper and lower extremities. Skin on lower extremities is dry and flaky MUSCULOSKELETAL: Muscle strength and tone normal. SPINE: No scoliosis or deformity SKIN: No rashes CENTRAL NERVOUS SYSTEM: Alert and oriented -3. No focal deficits, tone is normal in all 4 extremities. PSYCHIATRIC: Alert and oriented -3. Appropriate affect. Intact judgment and insight. - Labs CBC & Chem 7: 06/09/18 06:28 06/09/18 06:28 Labs: Abnormal Lab Results - Last 24 Hours (Table) 06/09/18 06/09/18 Range/Units 06:28 06:28 RBC 3.28 L (3.80-5.40) m/uL Hgb 8.6 L (11.4-16.0) gm/dL Hct 29.5 L (34.0-46.0) % MCHC 29.2 L (31.0-37.0) g/dL Lymphocytes # 0.8 L (1.0-4.8) k/uL BUN 19 H (7-17) mg/dL Glucose 102 H (74-99) mg/dL Microbiology - Last 24 Hours (Table) 06/08/18 16:05 Gram Stain - Preliminary Sputum Sputum Culture - Preliminary 06/06/18 13:25 Blood Culture - Preliminary Blood No Growth after 48 hours 06/06/18 10:05 Urine Culture - Final Urine,Clean Catch Assessment and Plan Plan: Assessment: #1. Acute on chronic hypoxic respiratory failure secondary to right lower lobe pneumonia, community-acquired #2. A. fib RVR #3. Fall at home, and patient was on the floor for a period of time #4. Dehydration #5. Acute kidney injury #6. Elevated troponins #7. Advanced stage IV COPD with the baseline FEV1 of 0.67 L or 31% predicted on home oxygen #8. Hypertension #9. Hyperlipidemia #10. Previous history of pneumonia #11. History of left breast cancer status post mastectomy Plan: This chest x-ray has been reviewed by Dr. Turner, shows multifocal patchy interstitial and airspace opacities along the bases with small effusions. Clinically patient continues to improve, he is afebrile, vital signs are stable , no altered mentation, no worsening dyspnea. Heart rate is better controlled. She is empirically covered with IV Zosyn, awaiting the results of final cultures, preliminary Gram stain of sputum showed no growth, urine and blood cultures remain negative. We'll continue to follow I performed a history & physical examination of the patient and discussed their management with my nurse practitioner, Olena Maddox. I reviewed the nurse practitioner's note and agree with the documented findings and plan of care. Lung sounds are diminished with some scattered rhonchi. The findings and the impression was discussed with the patient. I attest to the documentation by the nurse practitioner. Time with Patient: Less than 30
[2018-06-09] MEDS ORDERED: IOPAMIDOL-300 CONTRAST 30 ML VIAL (ORAL USE) PO PRN (13:57)
--- NOTE | 2018-06-09 16:22 | CT ---
EXAMINATION TYPE: CT ChestAbdPelvis wo con DATE OF EXAM: 06/09/2018 COMPARISON: CT chest 10/04/[address] abdomen pelvis 05/18/2016 HISTORY: 78-year-old female with pain, rule out metastatic disease TECHNIQUE: Contiguous axial scanning of the chest, abdomen, and pelvis without IV contrast. Coronal a nd sagittal reconstructions performed. CT DLP: 490.7 mGycm Automated exposure control for dose reduction was used. FINDINGS: Chest: Heart upper limits of normal in size. Extensive coronary vessel calcifications are present. Ectatic ascending aorta 3.7 cm with moderate atherosclerotic arch calcifications and bovine configura tion to the aortic arch. Large caliber to the main right and the pulmonary arteries measuring up to 3.1 cm compatible with und erlying pulmonary arterial hypertension. Nonspecific mildly enlarged 1.1 cm precarinal lymph node. There is small pleural effusions with patchy interstitial and airspace opacities at the lung bases an d underlying mild to moderate emphysema in the upper lungs. There is a left upper lobe pulmonary nodule showing some faint internal calcifications measuring 1.7 cm. No corresponding abnormality was seen on the patient's 2016 CT. Underlying fatty [place] hernias on both sides. Mottled debris within the distal esophagus could represent gastroesophageal reflux. Ectatic lower descending thoracic aorta 2.9 cm. Left breast is surgically absent. ABDOMEN: There is cholelithiasis. Lack of IV contrast limits assessment of the solid abdominal viscera, lymph nodes, and vascular struc tures. Within this limitation, noncontrast appearance of the liver, kidneys, right adrenal gland, spl een, atrophic pancreas show no gross abnormality. Stable low-density diffuse thickening of the left adrenal gland. No obvious mesenteric or retroperitoneal lymphadenopathy. No dilated small bowel, free fluid, or free air. Mild diffuse anasarca type changes noted. Moderate t o severe atherosclerotic calcifications throughout the abdominal aorta and iliac arteries. Moderate stool burden. Pelvis: Uterus surgically absent. Bladder partially distended. No abnormal fluid collection in pelvis or evid ent pelvic lymphadenopathy though lack of contrast limits assessment. Bones: Multiple lytic lesions throughout the pelvis and small focal areas of sclerosis even involving the pr oximal femurs. Large area of soft tissue lytic destruction posterior left iliac bone now measures 5.3 cm versus 1.6 cm on 05/18/2016. Additional lytic disease involving the sacrum, spine, ribs, and scle rotic foci within the sternum. IMPRESSION: 1. STATUS POST LEFT MASTECTOMY WITH NEW DIFFUSE OSSEOUS METASTATIC DISEASE CHARACTERIZED BY BOTH LYTI C AND SCLEROTIC LESIONS. LARGEST LYTIC LESIONS INVOLVE THE SACRUM, POSTERIOR LEFT ILIAC BONE, AND MUL TIPLE VERTEBRAL BODIES. 2. A 1.7 CM LEFT UPPER LOBE PULMONARY NODULE SUSPICIOUS FOR METASTATIC DISEASE. 3. SMALL PLEURAL EFFUSIONS ALONG WITH mild COPD AND PULMONARY ARTERY HYPERTENSION. PATCHY INTERSTITIA L AND AIRSPACE OPACITIES at THE LUNG BASES COULD REFLECT INFECTIOUS OR ASPIRATION PNEUMONITIS. CLINIC ALLY CORRELATE. 4. MODERATE STOOL BURDEN, MILD DIFFUSE ANASARCA-TYPE CHANGE, CHOLELITHIASIS, STABLE MILD DIFFUSE THIC KENING LEFT ADRENAL GLAND LIKELY BENIGN
--- NOTE | 2018-06-09 16:27 | P.CONS ---
History of Present Illness - Reason for Consult Consult date: 06/09/18 lytic Lesions Requesting physician: Amelie Diana - Chief Complaint Lytic lesions bone - History of Present Illness Ms. Robledo is a 78-year-old white female patient, with a known past medical history of Oxygen dependent COPD, Atrial fib, hypertension, hyperlipidemia, recurrent pneumonia, and left breast cancer with mastectomy. She presented to emergency via EMS on 06/06/18 after suffering a fall from home the night prior. She had apparently been experiencing increased weakness, low grade fevers with subjectives chills, and non-productive increased cough for the past week. She lives alone and does not remember the dtails of the fall or if she loss consciousness. Apon arrival she was noted to be hypotensive, hypoxic, and Tachycardia. A CT scan of the head was performed and revealed lytic lesions on skull3.2x1.9 and right maxilla 1.7. Initial chest x-ray did not show evidence of acute findings. On 06/07/18 a repeat chest x-ray showed worsening right basilar airspace disease, possibly developing pneumonia. Patient was in A. fib RVR, wi Lab work was reviewed, showed WBC of 14.3, hemoglobin of 10.7, creatinine is 1.63, Influenza was negative. Review of Systems A 14 point review of systems assessed and completed and all neg except HPI Past Medical History Past Medical History: Atrial Fibrillation, Cancer, COPD, Hyperlipidemia, Hypertension, Pneumonia, Syncope Additional Past Medical History / Comment(s): BREAST CANCER- LEFT MASTECTOMY, COUGHING UP BLOOD, HOME O2 2.5 LITERS N/C History of Any Multi-Drug Resistant Organisms: None Reported Past Surgical History: Breast Surgery Additional Past Surgical History / Comment(s): LEFT PARTICAL MASECTOMY, bilateral cataract removal-->implant, COLONOSCOPY Past Anesthesia/Blood Transfusion Reactions: No Reported Reaction Past Psychological History: No Psychological Hx Reported Additional Psychological History / Comment(s): Pt resides with her brother. She has a walker she uses if going longer distances. She has home oxygen which [facility]. She has a nebulizer. Pt does not drive. She has missed appts due to ride problems. She has no current home care but after previous hospitalizations she has use [facility]. VERIFIED by Gamal Jiménez RN Smoking Status: Never smoker Past Alcohol Use History: None Reported Additional Past Alcohol Use History / Comment(s): PT STATED STOPPED SMOKING 1.5 MONHTS AGO Past Drug Use History: None Reported - Past Family History Father History Unknown: Yes Mother Additional Family Medical History / Comment(s): Mother at age 38 yrs. She was and labored for 52 hours and as a complication of that per pt. VERIFIED Sister(s) Family Medical History: CVA/TIA, Seizure Disorder Additional Family Medical History / Comment(s): at age 42 yrs from seizure/ CVA. Brother(s) Family Medical History: COPD, Diabetes Mellitus Additional Family Medical History / Comment(s): at age 61 yrs. Medications and Allergies Home Medications Medication Instructions Recorded Confirmed Type Jackson Cit/Mag/D3/Zn/Personnel Assistant/Leonard/Bor 1 tab PO DAILY 12/18/13 06/06/18 History [Citracal-Vit D + Magnesium Tab] Diltiazem Cd [Cardizem CD] 180 mg PO DAILY 12/18/13 06/06/18 History Losartan/Hydrochlorothiazide 1 tab PO DAILY 12/18/13 06/06/18 History [Hyzaar 100-25 Tablet] Potassium Chloride ER [K-Dur 20] 20 meq PO DAILY 12/18/13 06/06/18 History Docusate [Colace] 100 mg PO BID #60 cap 09/21/15 06/06/18 Rx Ipratropium-Albuterol Nebulize 3 ml INHALATION RT-QID #0 ampul.neb 09/21/15 Rx [Duoneb 0.5 mg-3 mg/3 ml Soln] Ferrous Sulfate [Iron (65 MG 325 mg PO DAILY 10/03/15 06/06/18 History Elemental)] Multivitamins, Thera [Multivitamin 1 tab PO DAILY #30 tablet 10/05/15 06/06/18 Rx (formulary)] Ipratropium/Albuterol Sulfate 1 puff INHALATION RT-QID 06/06/18 06/06/18 History [Combivent Respimat Inhaler] Pravastatin Sodium [Pravachol] 40 mg PO DAILY 06/06/18 06/06/18 History Rivaroxaban [Xarelto] 20 mg PO DAILY 06/06/18 06/06/18 History Allergies Allergy/AdvReac Type Severity Reaction Status Date / Time erythromycin base Allergy Unknown Verified 06/06/18 17:09 Macrolide Antibiotics Allergy Unknown Verified 06/06/18 17:09 azithromycin AdvReac Nausea & Verified 06/06/18 17:09 Vomiting Physical Exam Vitals: Vital Signs Temp Pulse Pulse Resp BP Pulse Ox 06/09/18 12:00 90 18 06/09/18 11:58 90 18 116/76 98 06/09/18 11:56 100 06/09/18 11:49 92 06/09/18 09:00 100 06/09/18 08:52 96 06/09/18 08:00 98.1 F 97 16 133/68 98 06/09/18 05:24 108 H 06/09/18 05:12 94 06/09/18 03:49 98.4 F 83 16 110/53 100 06/09/18 03:04 83 18 06/09/18 00:00 86 17 113/59 99 06/08/18 20:37 88 06/08/18 20:00 97.4 F L 88 18 109/56 97 06/08/18 16:04 100 06/08/18 16:00 86 18 06/08/18 15:56 96 06/08/18 14:54 97.9 F 86 18 100/58 96 Intake and Output 06/08/18 06/09/18 06/09/18 22:59 06:59 14:59 Intake Total 240 480 480 Output Total 300 200 Balance -60 480 280 Intake: Oral 240 480 480 Output: Urine 300 200 Other: Voiding Method Bedpan Bedpan # Voids 2 1 1 # Bowel Movements 1 0 Weight 58 kg HEENT: NC, NT LUNGS: course rhonchi noted throughout with faint expiratory wheeze, no rales. Diminished bilaterally. No chest wall tenderness is noted on palpation or with deep breathing. HEART: Irregular rate and rhythm LUNGS: Diminished bibasilar, mild increased effort with noted expiratory wheezes ABDOMEN: Soft, nontender. Bowel sounds are heard. No organomegaly noted. EXTREMITIES: No evidence of peripheral edema NEUROLOGIC: Patient is awake, alert and oriented x3. Results CBC & Chem 7: 06/09/18 06:28 06/09/18 06:28 Labs: Abnormal Lab Results - Last 24 Hours (Table) 06/09/18 06/09/18 Range/Units 06:28 06:28 RBC 3.28 L (3.80-5.40) m/uL Hgb 8.6 L (11.4-16.0) gm/dL Hct 29.5 L (34.0-46.0) % MCHC 29.2 L (31.0-37.0) g/dL Lymphocytes # 0.8 L (1.0-4.8) k/uL BUN 19 H (7-17) mg/dL Glucose 102 H (74-99) mg/dL Microbiology - Last 24 Hours (Table) 06/08/18 16:05 Gram Stain - Preliminary Sputum Sputum Culture - Preliminary 06/06/18 13:25 Blood Culture - Preliminary Blood No Growth after 48 hours 06/06/18 10:05 Urine Culture - Final Urine,Clean Catch Chest x-ray: report reviewed (CT Neck Reviewed, CT Lumbar Spine (01/2018) Reviewed, CT CAP in 2015 reviewed) CT Scan - head: report reviewed Assessment and Plan Plan: Assessment and Recommendations: 1. Non- Specific Lytic Lesions Manivle and numerous lytic, sclerosing lesions concerning for underlying Malignancy: - Etiology is not clear but concern for underlying malignancy or metastatic disease - CT scans Chest, Abdomen, and Pelvis ordered - Bone Scan Ordered 2. Normocytic Anemia: - Trending her CBC back to 2016 she has had hemoglobin 10-11, baseline - Anemia work-up Nutritional or inflammatory causes has been ordered - Will await Diagnostic imaging prior to work-up for hematological malignancy, i.e. multiple myeloma Thank you for allowing us to take part in the care of your patient, further recs once initial and further diagnostics are completed and resulted. Physician Attest: I have completed the full history and physical of this patient and agree with above dictation by Romina Lopez NP. Dictated as a acribe. Romina Lopez NP
[2018-06-09 16:33] LABS: Reticulocyte % 1.4 % (0.5-2.0)
[2018-06-09 16:40] LABS: C Reactive Protein 65.9 mg/L (<10.0)
[2018-06-09] MEDS: ATORVASTATIN 20 MG TAB PO SCH (20:28)
--- NOTE | 2018-06-09 22:44 | PN ---
PROGRESS NOTE DATE OF SERVICE: 06/09/2018. ADDENDUM: INTERVAL HISTORY: This 78-year-old woman admitted with pneumonia and multiple rigors found to have extensive lytic lesions seen in the chest, abdomen and pelvis CAT scan also and as well as spine CAT scan also. The patient also has history of metastatic breast cancer. PAST MEDICAL HISTORY: Reviewed. REVIEW OF SYSTEMS: CARDIOVASCULAR: No angina or palpitations. RESPIRATION: As mentioned earlier. GI as mentioned earlier. : No dysuria. Central nervous system: No numbness or weakness. CURRENT MEDICATIONS: 1. Tylenol 650 q.6. 2. [place] 5 mg. 3. DuoNeb q.i.d. and p.r.n. 4. Lipitor 20 mg q.h.s. 5. Symbicort 160/4.5 two puffs b.i.d. 6. Os-Jackson with vitamin D 1 p.o. daily. 7. Cardizem CD 240 mg. 8. Colace. 9. Iron sulfate 320 mg. 10.Folic acid 1 mg. 11.Multivitamins. 12.Narcan. 13.Protonix 40 mg b.i.d. 14.Zosyn. 15.K-Dur 20 mEq. 16.Xarelto 10 mg p.o. daily. 17.Thiamine 100 mg p.o. daily. MMODL / IJN: [id number] /
[2018-06-10 03:16] LABS: Folate, Serum >24.0 ng/mL; Iron Saturation 3.81 (12.00-45.00); Rheumatoid Factor 15 IU/mL (0-15)
[2018-06-10] MEDS: PANTOPRAZOLE 40 MG TABLET PO SCH ×2 (05:56→17:05)
[2018-06-10] MEDS: IPRATROPIUM-ALBUTEROL 3 ML NEB INHALATION SCH ×4 (07:16→20:20)
[2018-06-10] MEDS: SYMBICORT 160-4.5 MCG INHALER INHALATION SCH ×2 (07:16→20:20)
[2018-06-10] MEDS: HYDROcodone/APAP 5-325MG 1 EACH TAB PO PRN ×2 (07:53→20:04)
[2018-06-10] MEDS: DILTIAZEM CD 240 MG CAP.ER.24H PO SCH (07:54)
[2018-06-10] MEDS: DOCUSATE 100 MG CAP PO SCH ×3 (07:54→20:06)
[2018-06-10] MEDS: POTASSIUM CHLORIDE ER 20 MEQ TAB.ER PO SCH (07:57)
[2018-06-10] MEDS ORDERED: MORPHINE SULFATE 2 MG/ML SYRINGE IVP PRN (08:03)
[2018-06-10 08:15] LABS: Basophils % (A) 0 %; Eosinophils # (A) 0.3 k/uL (0-0.7); Eosinophils % (A) 3 %; HGB 8.7 gm/dL (11.4-16.0); Hypochromasia Marked; Lymphocytes # (A) 0.8 k/uL (1.0-4.8); Lymphocytes % (A) 10 %; MCH 26.7 pg (25.0-35.0); MCHC 29.8 g/dL (31.0-37.0); MCV 89.7 fL (80.0-100.0); Mean Platelet Volume 7.4; Monocytes # (A) 0.6 k/uL (0-1.0); Monocytes % (A) 8 %; Neutrophils # (A) 5.9 k/uL (1.3-7.7); Neutrophils % (A) 77 %; Platelet Count 242 k/uL (150-450); RBC 3.24 m/uL (3.80-5.40); RDW 14.9 % (11.5-15.5); WBC 7.6 k/uL (3.8-10.6)
[2018-06-10 08:40] LABS: Calcium 10.6 mg/dL (8.4-10.2); Potassium 4.3 mmol/L (3.5-5.1)
[2018-06-10] MEDS: RIVAROXABAN 20 MG TAB PO SCH (08:54)
[2018-06-10] MEDS: PIPERACILLIN-TAZOBACTAM 3.375 GM in SODIUM CHLORIDE 0.9% 100 ML IVPB SCH ×3 (08:54→23:58)
--- NOTE | 2018-06-10 11:40 | NM ---
EXAMINATION TYPE: NM bone scan whole body DATE OF EXAM: 06/10/2018 COMPARISON: CT chest, abdomen, and pelvis dated 06/09/2018 HISTORY: Sclerotic and lytic osseous lesions seen on the CT dated 06/09/2018 with concern for metasta sis. Although primary neoplasm is not stated the left breast is surgically absent and breast cancer i s assumed. Delayed whole-body scanning was performed following the injection of 23.8 mCi Tc 99m MDP. Images acq uired 3 hours post injection. FINDINGS: There are numerous foci of photopenia and increased uptake. The most focal radiotracer uptake is seen within the pubic bones, sacroiliac joints, sternum, and throughout the entire spine. Numerous suspic ious foci are scattered throughout the bilateral ribs. Other suspicious foci are seen within the prox imal femurs bilaterally, iliac bones, right humerus, left upper extremity soft tissues, and left infe rior pubic ramus. Overall symmetric radiotracer accumulation most indicative of arthropathy is seen o f the glenohumeral joints, chromic clavicular joints, knees and ankles. Only minimal excretion is see n within the urinary bladder and kidneys. Photopenic defects are most pronounced within the bilateral iliac bones, left greater than right due to the osteolytic lesions. IMPRESSION: Findings compatible with diffuse blastic and lytic osseous metastasis as described above with areas o f increased radiotracer uptake and photopenia correlating to the findings on the prior CT of 06/09/20 18.
--- NOTE | 2018-06-10 11:45 | P.PN ---
Subjective Progress Note Date: 06/10/18 Principal diagnosis: Acute on chronic hypoxic respiratory failure secondary to right lower lobe pneumonia, community-acquired, A. fib RVR This is a 78-year-old white female patient of Dr. Turner, with past medical history of stage IV COPD, on home oxygen, chronic A. fib, hypertension, hyperlipidemia, previous episodes of pneumonia, left breast cancer with mastectomy, who was brought in to the emergency department by ambulance on 06/06 after she sustained a fall at home last night. Patient apparently had being having increased weakness, some limited cough, fever and chills. She states she does not remember whether she lost consciousness, she laid on the floor and could not change positions. She denies any injuries. Patient lives by herself, and she remained on the floor until the arrival of the ambulance. Patient was tachycardic, hypotensive hypoxemic in the emergency department. IV hydration was started, patient was started on broad-spectrum antibiotics for possibility of pneumonia. Initial chest x-ray showed some chronic pulmonary fibrotic changes, but no acute findings. Follow-up chest x-ray on 06/07/2018 showed worsening right basilar airspace disease, possibly developing pneumonia. Patient was in A. fib RVR, with a rate of 114 BPM. Lab work was reviewed, showed WBC of 14.3, hemoglobin of 10.7, sodium 140, potassium is 3.8, chloride is 97, CO2 is 20, BUN of 38, creatinine is 1.63, troponin of 0.094, proBNP was 6150. Total CK was 333 and CK-MB of 7.5, urinalysis showed 1+ protein, trace ketones, and rare mucus and yeast. Influenza was not detected. On 06/08/2018 patient seen in follow-up on selective care unit, she is awake and alert, sitting up in the chair, in no acute distress. Pulse ox on 4 L per nasal cannula is 98%, she is afebrile, hemodynamically stable. Remains on IV hydration, 0.9 normal saline at a rate of 100 ML per hour. Blood and urine cultures are negative thus far. Lung sounds are positive for some scattered rhonchi. Today's labs have been reviewed, WBCs 8.6, hemoglobin is 8.8, sodium is 142, potassium is 3.1, chloride is 105, CO2 is 30, BUN is 34, creatinine is 1.16. Fluids a screen was not detected. She denies any chest pain. Brain CT was completed and showed no acute intracranial hemorrhage or midline shift, mild to moderate diffuse age-related cerebral atrophy and small chronic ischemic changes. Echocardiogram showed left ventricular systolic function with an EF between 55 and 60%, mild tricuspid regurgitation, mild mitral regurgitation, mild pulmonary hypertension with the right-sided pressures of 42 mmHg. On 06/09/2018 patient seen in follow-up on selective care unit, she is awake alert, sitting up in the chair, in no acute distress, denies any difficulty breathing, she is currently on 4 L per nasal cannula and her pulse ox is 98%, she is hemodynamically stable, remains in A. fib, and the rate is better controlled, 90 BPM, afebrile. Lung sounds are diminished with some minimal scattered rhonchi and wheezing. Today's lab work has been reviewed, WBC is 8.2 , hemoglobin is 8.6, electrolytes are within normal limits, renal profile continues to improve, BUN is 19 and creatinine 0.98. Today's chest x-ray shows COPD, multifocal patchy interstitial and airspace opacities along the bases with small effusions. Clinically patient remains stable, preliminary Gram stain of sputum showed no organisms, patient is covered empirically with Zosyn, she is on nebulized bronchodilators, Symbicort. On 06/10/2018 patient seen in follow-up on selective care unit, awake alert, in no acute distress. CT of the head revealed lytic lesions on the skull, medical oncology was consulted. CT chest/abdomen/pelvis is completed and showed small pleural effusions with patchy interstitial and airspace opacities at the lung bases, underlying [id number]-[id number] emphysema in the upper lungs, left upper lobe pulmonary nodule some faint calcification, was 1.[address] of the abdomen showed cholelithiasis, no obvious mesenteric or retroperitoneal lymphadenopathy , no dilated small bowel, no free fluid or free air. Multiple lytic lesions throughout the pelvis and small focal areas of sclerosis even involving the proximal femurs, large area of soft tissue lytic destruction posterior left iliac bone, and additional lytic leak disease involving the sacrum, spine, ribs and sclerotic foci within the sternum. Patient is for a bone scan today. Pulse ox is 99% on 4 L per nasal cannula, patient is afebrile, denies any worsening shortness of breath, lung sounds are diminished, no significant rhonchi or wheezes today. Today's lab work has been reviewed, WBC is 7.6, hemoglobin is 8.7, electrolyte and renal profile were within normal limits, calcium is 10.6. Objective - Vital Signs Vital signs: Vital Signs Temp 97.8 F 06/10/18 07:37 Pulse 81 06/10/18 08:00 Resp 18 06/10/18 08:00 BP 137/63 06/10/18 07:37 Pulse Ox 99 06/10/18 07:37 Intake & Output 06/09/18 06/10/18 06/10/18 18:59 06:59 18:59 Intake Total 720 120 Output Total 600 900 Balance 120 -900 120 Weight 61.9 kg Intake: Oral 720 120 Output: Urine 600 900 Other: Voiding Method Bedpan # Voids 1 2 0 # Bowel Movements 0 - Exam GENERAL EXAM: Alert, pleasant, 78 -year-old elderly frail looking female, comfortable in no apparent distress. HEAD: Normocephalic/atraumatic. EYES: Normal reaction of pupils, equal size. Conjunctiva pink, sclera white. NOSE: Clear with pink turbinates. THROAT: No erythema or exudates. NECK: No masses, no JVD, no thyroid enlargement, no adenopathy. CHEST: No chest wall deformity. Symmetrical expansion. LUNGS: Equal air entry with scattered rhonchi CVS: Regular rate and rhythm, normal S1 and S2, no gallops, no murmurs, no rubs ABDOMEN: Soft, nontender. No hepatosplenomegaly, normal bowel sounds, no guarding or rigidity. EXTREMITIES: No clubbing, no edema, no cyanosis, 2+ pulses and upper and lower extremities. Skin on lower extremities is dry and flaky MUSCULOSKELETAL: Muscle strength and tone normal. SPINE: No scoliosis or deformity SKIN: No rashes CENTRAL NERVOUS SYSTEM: Alert and oriented -3. No focal deficits, tone is normal in all 4 extremities. PSYCHIATRIC: Alert and oriented -3. Appropriate affect. Intact judgment and insight. - Labs CBC & Chem 7: 06/10/18 07:21 06/10/18 07:21 Labs: Abnormal Lab Results - Last 24 Hours (Table) 06/09/18 06/09/18 06/09/18 Range/Units 06:28 06:28 06:28 RBC (3.80-5.40) m/uL Hgb (11.4-16.0) gm/dL Hct (34.0-46.0) % MCHC (31.0-37.0) g/dL Lymphocytes # (1.0-4.8) k/uL ESR 48 H (0-20) mm/hr Calcium (8.4-10.2) mg/dL Iron 9 L (50-170) ug/dL Iron Saturation 3.81 L (12.00-45.00) Lactate Dehydrogenase 683 H (313-618) U/L C-Reactive Protein 65.9 H (<10.0) mg/L 06/10/18 06/10/18 Range/Units 07:21 07:21 RBC 3.24 L (3.80-5.40) m/uL Hgb 8.7 L (11.4-16.0) gm/dL Hct 29.0 L (34.0-46.0) % MCHC 29.8 L (31.0-37.0) g/dL Lymphocytes # 0.8 L (1.0-4.8) k/uL ESR (0-20) mm/hr Calcium 10.6 H (8.4-10.2) mg/dL Iron (50-170) ug/dL Iron Saturation (12.00-45.00) Lactate Dehydrogenase (313-618) U/L C-Reactive Protein (<10.0) mg/L Microbiology - Last 24 Hours (Table) 06/06/18 13:25 Blood Culture - Preliminary Blood No Growth after 72 hours 06/08/18 16:05 Gram Stain - Preliminary Sputum Sputum Culture - Preliminary Assessment and Plan Plan: Assessment: #1. Acute on chronic hypoxic respiratory failure secondary to right lower lobe pneumonia, community-acquired #2. Left upper lobe 1.7 cm pulmonary nodule suspicious for metastatic disease #3. New diffuse osseous metastatic disease characterized by lytic and sclerotic lesions involving the sacrum, left iliac bone, multiple vertebral bodies. #4. Nonspecific lytic lesion involving the right maxilla #5. A. fib RVR #6. Fall at home, and patient was on the floor for a period of time #7. Dehydration #8. Acute kidney injury #9. Elevated troponins #10. Advanced stage IV COPD with the baseline FEV1 of 0.67 L or 31% predicted on home oxygen #11. Hypertension #12. Hyperlipidemia #13. Previous history of pneumonia #14. History of left breast cancer status post mastectomy Plan: Patient is breathing easier, no acute distress, she is afebrile, yesterday's follow-up chest x-ray was reviewed by Dr. Dr. Turner, showed multifocal patchy interstitial and airspace opacities along with small pleural effusions, patient was found to have lytic lesions involving the right maxilla, medical oncology have been consulted, and their consultation note has been noted. New diffuse osseous metastatic disease characterized by both lytic and sclerotic lesions was noted involving the sacrum, posterior left iliac bone, multiple vertebral bodies. Medical oncology is following. Continue with current medical management. I performed a history & physical examination of the patient and discussed their management with my nurse practitioner, Olena Maddox. I reviewed the nurse practitioner's note and agree with the documented findings and plan of care. Lung sounds are diminished with some scattered rhonchi. The findings and the impression was discussed with the patient. I attest to the documentation by the nurse practitioner. Time with Patient: Less than 30
[2018-06-10] MEDS: FOLIC ACID 1 MG TAB PO SCH (11:56)
[2018-06-10] MEDS: SODIUM CHLORIDE 0.9% 1,000 ML IV SCH ×2 (11:56→23:59)
[2018-06-10] MEDS: CALCIUM CARB-VIT D 500MG-200UN 1 EACH TAB PO SCH (11:56)
[2018-06-10] MEDS: THIAMINE 100 MG TAB PO SCH (11:56)
[2018-06-10] MEDS: FERROUS SULFATE 325 MG TAB PO SCH (11:56)
[2018-06-10] MEDS: MULTIVITAMINS, THERA 1 EACH TAB PO SCH (11:56)
[2018-06-10] MEDS: ACETAMINOPHEN TAB 325 MG TAB PO PRN (11:58)
[2018-06-10] MEDS: IPRATROPIUM-ALBUTEROL 3 ML NEB INHALATION PRN (12:02)
--- NOTE | 2018-06-10 12:20 | CT ---
EXAMINATION TYPE: CT angio chest DATE OF EXAM: 06/10/2018 COMPARISON: 06/09/2018 HISTORY: r/o pe metastatic disease CT DLP: 288.50 mGycm. Automated Exposure Control for Dose Reduction was Utilized. CONTRAST: CTA scan of the thorax is performed with IV Contrast, patient injected with 80 mL of Isovue 370, pulm onary embolism protocol. MIP Images are created on CT scanner and reviewed. FINDINGS: LUNGS: There is redemonstration of an approximately 1.7 cm left upper lobe pulmonary nodule with irre gular borders on series 5 image 69. Adjacent endobronchial plugging is also noted. There are bilatera l pleural effusions small to moderate on the right and small on the left with associated bibasilar ai rspace disease, fibrotic changes, and bilateral Bochdalek hernias as recently seen. MEDIASTINUM: There is satisfactory enhancement of the central and segmental pulmonary artery and its branches, there is no CT evidence for pulmonary embolism within these branches. There is admixing of contrast within the subsegmental pulmonary arteries limiting evaluation.r there is enlargement of th e right and left main pulmonary arteries measuring up to 3.2 cm on the right and 2.9 cm on the left. Heart is enlarged. Ascending thoracic aorta measures 3.6 cm, within normal limits. Adenopathy is seen within the mediast inum with subcarinal lymph node measuring approximately 1.6 cm in short axis OTHER: There is a left mastectomy noted. Rounded left axillary lymph node is suspicious on series 4 i mage 48 measuring 8 mm. Thyroid gland is overall heterogenous. Fluid is seen within the patulous midesophagus in distal esoph best. There is cholelithiasis present. Extensive atherosclerosis of the descending thoracic aorta and upper abdominal aorta as well as its branches are visualized. Thickening of the left adrenal gland a s seen on the prior is poorly visualized today. There is diffuse osteolytic and osteoblastic metastatic disease as described on the recent CT chest d ated 06/09/2018. This is seen throughout the spine, ribs, and sternum as well as within the right cla vicle. IMPRESSION: 1. No pulmonary embolus of the central or segmental pulmonary arteries. Admixing of contrast limits e valuation of the subsegmental pulmonary arteries. Enlargement of the right and left main pulmonary ar kelvin suggests underlying pulmonary arterial hypertension. 2. Diffuse osteoblastic and osteolytic metastasis throughout the thorax. 3. Ogmxf-me-wtqcflik right and small left pleural effusions with bibasilar airspace disease that may represent atelectasis or pneumonia in the appropriate clinical setting and mild pulmonary fibrosis. A gain aspiration pneumonia could be considered. 4. Left upper lobe 1.7 cm pulmonary nodule highly suspicious for metastatic disease.
--- NOTE | 2018-06-10 14:58 | FL ---
EXAMINATION TYPE: FL barium swallow w video DATE OF EXAM: 06/10/2018 MODIFIED SWALLOW / DEGLUTITION STUDY CLINICAL HISTORY: COPD with dysphasia rule out aspiration TECHNIQUE: Deglutition study is performed utilizing thin liquid barium, honey and nectar thick liqui d barium, barium thick applesauce, and barium coated cracker. A total of 2 minutes 45 seconds of fluo roscopic time was utilized during procedure. Over 2000 fluoroscopic images are sent to PACS. COMPARISON: None. FINDINGS: The oral and pharyngeal phases show satisfactory initiation and propagation with all modali ties tested. Satisfactory mastication is seen with solid modalities tested. There is no evidence of penetration or aspiration with any modality tested. No significant pharyngeal residue was appreciate d. IMPRESSION: No penetration or aspiration observed. Please refer to speech therapist notes for further details if necessary.
--- NOTE | 2018-06-10 16:01 | P.PN ---
Subjective Progress Note Date: 06/10/18 Principal diagnosis: New diffuse lesions bone, concern for malignancy Her Breast cancer history was 15 years ago. Today during first attempt patient was going to nuclear medicine for bone scan. Objective - Vital Signs Vital signs: Vital Signs Temp 97.8 F 06/10/18 15:01 Pulse 79 06/10/18 15:02 Resp 16 06/10/18 15:02 BP 129/78 06/10/18 15:01 Pulse Ox 98 06/10/18 15:01 Intake & Output 06/09/18 06/10/18 06/10/18 18:59 06:59 18:59 Intake Total 720 120 Output Total 600 900 Balance 120 -900 120 Weight 61.9 kg Intake: Oral 720 120 Output: Urine 600 900 Other: Voiding Method Bedpan # Voids 1 2 0 # Bowel Movements 0 - Exam HEENT: NC, NT LUNGS: course rhonchi noted throughout with faint expiratory wheeze, no rales. Diminished bilaterally. No chest wall tenderness is noted on palpation or with deep breathing. HEART: Irregular rate and rhythm LUNGS: Diminished bibasilar, mild increased effort with noted expiratory wheezes ABDOMEN: Soft, nontender. Bowel sounds are heard. No organomegaly noted. EXTREMITIES: No evidence of peripheral edema NEUROLOGIC: Patient is awake, alert and oriented x3. - Labs CBC & Chem 7: 06/10/18 07:21 06/10/18 07:21 Labs: Abnormal Lab Results - Last 24 Hours (Table) 06/09/18 06/09/18 06/09/18 Range/Units 06:28 06:28 06:28 RBC (3.80-5.40) m/uL Hgb (11.4-16.0) gm/dL Hct (34.0-46.0) % MCHC (31.0-37.0) g/dL Lymphocytes # (1.0-4.8) k/uL ESR 48 H (0-20) mm/hr Calcium (8.4-10.2) mg/dL Iron 9 L (50-170) ug/dL Iron Saturation 3.81 L (12.00-45.00) Lactate Dehydrogenase 683 H (313-618) U/L C-Reactive Protein 65.9 H (<10.0) mg/L 06/10/18 06/10/18 Range/Units 07:21 07:21 RBC 3.24 L (3.80-5.40) m/uL Hgb 8.7 L (11.4-16.0) gm/dL Hct 29.0 L (34.0-46.0) % MCHC 29.8 L (31.0-37.0) g/dL Lymphocytes # 0.8 L (1.0-4.8) k/uL ESR (0-20) mm/hr Calcium 10.6 H (8.4-10.2) mg/dL Iron (50-170) ug/dL Iron Saturation (12.00-45.00) Lactate Dehydrogenase (313-618) U/L C-Reactive Protein (<10.0) mg/L Microbiology - Last 24 Hours (Table) 06/08/18 16:05 Gram Stain - Preliminary Sputum Sputum Culture - Preliminary Presumptive Staph aureus Rosaline albicans Gram Neg Bacilli 06/06/18 13:25 Blood Culture - Preliminary Blood No Growth after 72 hours Assessment and Plan Plan: Assessment and Recommendations: 1. Non- Specific Lytic Lesions [place] and numerous lytic, sclerosing lesions concerning for underlying Malignancy: - Etiology is not clear but concern for underlying malignancy or metastatic disease - CT scans Chest, Abdomen, and Pelvis reviewed - Bone Scan Ordered - Interventional Radiology for biopsy of left Iliac Cr - Will discuss further with patient as time limited do to recurrent transportations off the floor. RN provided our number to assist with answering any further questions - Supportive care for pain. 2. Normocytic Anemia: - Trending her CBC back to 2016 she has had hemoglobin 10-11, baseline - Anemia work-up Nutritional or inflammatory causes has been ordered - Will await Diagnostic imaging prior to work-up for hematological malignancy, i.e. multiple myeloma
[2018-06-10] MEDS: ATORVASTATIN 20 MG TAB PO SCH (20:04)
[2018-06-11] MEDS: IPRATROPIUM-ALBUTEROL 3 ML NEB INHALATION PRN ×2 (00:18→04:11)
[2018-06-11] MEDS: PANTOPRAZOLE 40 MG TABLET PO SCH ×2 (06:37→16:22)
[2018-06-11 07:02] LABS: Basophils % (A) 0 %; Eosinophils # (A) 0.3 k/uL (0-0.7); Eosinophils % (A) 2 %; HCT 27.9 % (34.0-46.0); HGB 8.3 gm/dL (11.4-16.0); Hypochromasia Marked; Lymphocytes # (A) 0.8 k/uL (1.0-4.8); Lymphocytes % (A) 6 %; MCH 26.5 pg (25.0-35.0); MCHC 29.8 g/dL (31.0-37.0); MCV 88.7 fL (80.0-100.0); Mean Platelet Volume 7.1; Monocytes # (A) 0.7 k/uL (0-1.0); Monocytes % (A) 5 %; Neutrophils # (A) 11.9 k/uL (1.3-7.7); Neutrophils % (A) 87 %; Platelet Count 271 k/uL (150-450); RBC 3.14 m/uL (3.80-5.40); RDW 14.6 % (11.5-15.5); WBC 13.7 k/uL (3.8-10.6)
[2018-06-11 07:11] LABS: Prothrombin Time 10.7 sec (9.0-12.0)
[2018-06-11 07:20] LABS: Calcium 10.6 mg/dL (8.4-10.2); Potassium 3.8 mmol/L (3.5-5.1)
[2018-06-11] MEDS: PIPERACILLIN-TAZOBACTAM 3.375 GM in SODIUM CHLORIDE 0.9% 100 ML IVPB SCH ×3 (07:50→23:18)
[2018-06-11] MEDS: DILTIAZEM CD 240 MG CAP.ER.24H PO SCH (07:50)
[2018-06-11] MEDS: DOCUSATE 100 MG CAP PO SCH ×2 (07:51→20:18)
[2018-06-11] MEDS: FERROUS SULFATE 325 MG TAB PO SCH (07:51)
[2018-06-11] MEDS: THIAMINE 100 MG TAB PO SCH (07:51)
[2018-06-11] MEDS: POTASSIUM CHLORIDE ER 20 MEQ TAB.ER PO SCH (07:51)
[2018-06-11] MEDS: FOLIC ACID 1 MG TAB PO SCH (07:51)
[2018-06-11] MEDS: RIVAROXABAN 20 MG TAB PO SCH (07:51)
[2018-06-11] MEDS: HYDROcodone/APAP 5-325MG 1 EACH TAB PO PRN (07:51)
[2018-06-11] MEDS: MULTIVITAMINS, THERA 1 EACH TAB PO SCH (07:51)
[2018-06-11] MEDS: IPRATROPIUM-ALBUTEROL 3 ML NEB INHALATION SCH ×4 (09:09→20:38)
[2018-06-11] MEDS: SYMBICORT 160-4.5 MCG INHALER INHALATION SCH (09:10)
[2018-06-11] MEDS ORDERED: VANCOMYCIN IV PER PHARMACY 1 EACH MISC MISCELLANE PRN (11:45)
[2018-06-11] MEDS ORDERED: VANCOMYCIN 1,250 MG in SODIUM CHLORIDE 0.9% 250 ML IVPB STA (11:53)
[2018-06-11] MEDS: SODIUM CHLORIDE 0.9% 1,000 ML IV SCH (12:36)
[2018-06-11] MEDS: CALCIUM CARB-VIT D 500MG-200UN 1 EACH TAB PO SCH (12:40)
[2018-06-11] MEDS: predniSONE 20 MG TAB PO SCH (12:40)
--- NOTE | 2018-06-11 13:33 | P.PN ---
Subjective Progress Note Date: 06/11/18 Principal diagnosis: Acute on chronic hypoxic respiratory failure secondary to right lower lobe pneumonia, community-acquired, A. fib RVR This is a 78-year-old white female patient of Dr. Turner, with past medical history of stage IV COPD, on home oxygen, chronic A. fib, hypertension, hyperlipidemia, previous episodes of pneumonia, left breast cancer with mastectomy, who was brought in to the emergency department by ambulance on 06/06 after she sustained a fall at home last night. Patient apparently had being having increased weakness, some limited cough, fever and chills. She states she does not remember whether she lost consciousness, she laid on the floor and could not change positions. She denies any injuries. Patient lives by herself, and she remained on the floor until the arrival of the ambulance. Patient was tachycardic, hypotensive hypoxemic in the emergency department. IV hydration was started, patient was started on broad-spectrum antibiotics for possibility of pneumonia. Initial chest x-ray showed some chronic pulmonary fibrotic changes, but no acute findings. Follow-up chest x-ray on 06/07/2018 showed worsening right basilar airspace disease, possibly developing pneumonia. Patient was in A. fib RVR, with a rate of 114 BPM. Lab work was reviewed, showed WBC of 14.3, hemoglobin of 10.7, sodium 140, potassium is 3.8, chloride is 97, CO2 is 20, BUN of 38, creatinine is 1.63, troponin of 0.094, proBNP was 6150. Total CK was 333 and CK-MB of 7.5, urinalysis showed 1+ protein, trace ketones, and rare mucus and yeast. Influenza was not detected. On 06/08/2018 patient seen in follow-up on selective care unit, she is awake and alert, sitting up in the chair, in no acute distress. Pulse ox on 4 L per nasal cannula is 98%, she is afebrile, hemodynamically stable. Remains on IV hydration, 0.9 normal saline at a rate of 100 ML per hour. Blood and urine cultures are negative thus far. Lung sounds are positive for some scattered rhonchi. Today's labs have been reviewed, WBCs 8.6, hemoglobin is 8.8, sodium is 142, potassium is 3.1, chloride is 105, CO2 is 30, BUN is 34, creatinine is 1.16. Fluids a screen was not detected. She denies any chest pain. Brain CT was completed and showed no acute intracranial hemorrhage or midline shift, mild to moderate diffuse age-related cerebral atrophy and small chronic ischemic changes. Echocardiogram showed left ventricular systolic function with an EF between 55 and 60%, mild tricuspid regurgitation, mild mitral regurgitation, mild pulmonary hypertension with the right-sided pressures of 42 mmHg. On 06/09/2018 patient seen in follow-up on selective care unit, she is awake alert, sitting up in the chair, in no acute distress, denies any difficulty breathing, she is currently on 4 L per nasal cannula and her pulse ox is 98%, she is hemodynamically stable, remains in A. fib, and the rate is better controlled, 90 BPM, afebrile. Lung sounds are diminished with some minimal scattered rhonchi and wheezing. Today's lab work has been reviewed, WBC is 8.2 , hemoglobin is 8.6, electrolytes are within normal limits, renal profile continues to improve, BUN is 19 and creatinine 0.98. Today's chest x-ray shows COPD, multifocal patchy interstitial and airspace opacities along the bases with small effusions. Clinically patient remains stable, preliminary Gram stain of sputum showed no organisms, patient is covered empirically with Zosyn, she is on nebulized bronchodilators, Symbicort. On 06/10/2018 patient seen in follow-up on selective care unit, awake alert, in no acute distress. CT of the head revealed lytic lesions on the skull, medical oncology was consulted. CT chest/abdomen/pelvis is completed and showed small pleural effusions with patchy interstitial and airspace opacities at the lung bases, underlying [id number] emphysema in the upper lungs, left upper lobe pulmonary nodule some faint calcification, was 1.[address] of the abdomen showed cholelithiasis, no obvious mesenteric or retroperitoneal lymphadenopathy , no dilated small bowel, no free fluid or free air. Multiple lytic lesions throughout the pelvis and small focal areas of sclerosis even involving the proximal femurs, large area of soft tissue lytic destruction posterior left iliac bone, and additional lytic leak disease involving the sacrum, spine, ribs and sclerotic foci within the sternum. Patient is for a bone scan today. Pulse ox is 99% on 4 L per nasal cannula, patient is afebrile, denies any worsening shortness of breath, lung sounds are diminished, no significant rhonchi or wheezes today. Today's lab work has been reviewed, WBC is 7.6, hemoglobin is 8.7, electrolyte and renal profile were within normal limits, calcium is 10.6. On 06/11/2018 patient seen again in follow-up on selective care unit, she is more dyspneic on today's exam, wheezy. We'll start her on some oral prednisone , she is already on nebulized bronchodilators. CT chest was completed, and showed no evidence of pulmonary embolism. Pulmonary arterial hypertension, diffuse osteoblastic and osteolytic metastasis throughout the thorax, small to moderate right and small left pleural effusions with bibasilar airspace disease that may represent atelectasis or pneumonia, mild pulmonary fibrosis. Left upper lobe 1.7 cm pulmonary nodule highly suspicious for metastatic disease. Nuclear bone scan findings were compatible with diffuse blastic and lytic osseous metastasis within the proximal femurs bilaterally, iliac bones, right humerus, left upper extremity soft tissues, left inferior pubic ramus, sternum, and throughout the entire spine. Medical oncology is following, 2 vaginal radiology has been consulted for biopsy of left iliac crest. Sputum culture was positive for MRSA, and gram-negative bacilli, final culture is pending, patient is currently covered with Zosyn, we will add vancomycin. Today's labs showed WBC of 13.7, hemoglobin of 8.3, sodium is 139, potassium is 3.8, chloride is 102, CO2 32, BUN was 10, creatinine 0.83. CA 153 antigen was 183, and [place] 2729 was 182. Objective - Vital Signs Vital signs: Vital Signs Temp 97.6 F 06/11/18 11:33 Pulse 88 06/11/18 11:33 Resp 18 06/11/18 11:33 BP 104/75 06/11/18 11:33 Pulse Ox 97 06/11/18 11:33 Intake & Output 06/10/18 06/11/18 06/11/18 18:59 06:59 18:59 Intake Total 240 362.5 462 Output Total 600 600 Balance -360 362.5 -138 Weight 61.9 kg Intake: Intake, IV Titration 362.5 Amount Piperacillin-Tazobactam 3 100 .375 gm In Sodium Chloride 0.9% 100 ml @ 25 mls/hr IVPB Q8HR [facility] Rx# :[id number] Sodium Chloride 0.9% 1, 262.5 000 ml @ 75 mls/hr IV . [id number] [facility] Rx#:[id number] Oral 240 462 Output: Urine 600 600 Other: Voiding Method Bedside Commode Bedside Commode # Voids 0 1 # Bowel Movements 0 - Exam GENERAL EXAM: Alert, pleasant, 78 -year-old elderly frail looking female, mildly short of breath, and wheezy HEAD: Normocephalic/atraumatic. EYES: Normal reaction of pupils, equal size. Conjunctiva pink, sclera white. NOSE: Clear with pink turbinates. THROAT: No erythema or exudates. NECK: No masses, no JVD, no thyroid enlargement, no adenopathy. CHEST: No chest wall deformity. Symmetrical expansion. LUNGS: Equal air entry with scattered rhonchi and wheezes CVS: Regular rate and rhythm, normal S1 and S2, no gallops, no murmurs, no rubs ABDOMEN: Soft, nontender. No hepatosplenomegaly, normal bowel sounds, no guarding or rigidity. EXTREMITIES: No clubbing, no edema, no cyanosis, 2+ pulses and upper and lower extremities. Skin on lower extremities is dry and flaky MUSCULOSKELETAL: Muscle strength and tone normal. SPINE: No scoliosis or deformity SKIN: No rashes CENTRAL NERVOUS SYSTEM: Alert and oriented -3. No focal deficits, tone is normal in all 4 extremities. PSYCHIATRIC: Alert and oriented -3. Appropriate affect. Intact judgment and insight. - Labs CBC & Chem 7: 06/11/18 06:07 06/11/18 06:07 Labs: Abnormal Lab Results - Last 24 Hours (Table) 06/10/18 06/11/18 06/11/18 Range/Units 07:21 06:07 06:07 WBC 13.7 H (3.8-10.6) k/uL RBC 3.14 L (3.80-5.40) m/uL Hgb 8.3 L (11.4-16.0) gm/dL Hct 27.9 L (34.0-46.0) % MCHC 29.8 L (31.0-37.0) g/dL Neutrophils # 11.9 H (1.3-7.7) k/uL Lymphocytes # 0.8 L (1.0-4.8) k/uL Carbon Dioxide 32 H (22-30) mmol/L Glucose 101 H (74-99) mg/dL Calcium 10.6 H (8.4-10.2) mg/dL CA 15-3 Antigen 183.0 H (0.0-32.3) U/mL CA 27-29 182.0 H (0.0-38.5) U/mL Microbiology - Last 24 Hours (Table) 06/08/18 16:05 Gram Stain - Preliminary Sputum Sputum Culture - Preliminary Methicillin resist S. aureus Rosaline albicans Gram Neg Bacilli 06/06/18 13:25 Blood Culture - Preliminary Blood No Growth after 96 hours Assessment and Plan Plan: Assessment: #1. Acute on chronic hypoxic respiratory failure secondary to right lower lobe pneumonia, sputum cultures positive for MRSA, and gram-negative bacilli. #2. Acute COPD exacerbation secondary to above #3. Left upper lobe 1.7 cm pulmonary nodule suspicious for metastatic disease #4. New diffuse osseous metastatic disease characterized by lytic and sclerotic lesions involving the sacrum, left iliac bone, multiple vertebral bodies, concerning for underlying malignancy, etiology is under investigation #5. Nonspecific lytic lesion involving the right maxilla #6. A. fib RVR #7. Fall at home, and patient was on the floor for a period of time #8. Dehydration #9. Acute kidney injury #10. Elevated troponins #11. Advanced stage IV COPD with the baseline FEV1 of 0.67 L or 31% predicted on home oxygen #12. Hypertension #13. Hyperlipidemia #14. Previous history of pneumonia #15. History of left breast cancer status post mastectomy Plan: Sputum cultures were positive for MRSA, and gram-negative bacilli, final cultures pending, patient is covered with Zosyn, we will add vancomycin. Add oral prednisone, Symbicort 2 Pulmicort and Perforomist, patient is more short of breath and wheezy on today's exam. Results of the CT angios chest, nuclear bone scan were reviewed, findings compatible with underlying malignancy evidence of diffuse osseous metastatic disease, left upper lobe nodule suspicious for metastatic disease were found, oncology is following. We discussed CODE STATUS with the patient yesterday, she was supposed to discuss it with her family members, she remains a full code at this time, however her underlying advanced COPD, other multiple comorbidities, and new evidence of metastatic disease unfortunately represent poor prognosis for this patient. I performed a history & physical examination of the patient and discussed their management with my nurse practitioner, Olena Maddox. I reviewed the nurse practitioner's note and agree with the documented findings and plan of care. Lung sounds are diminished with some scattered rhonchi. The findings and the impression was discussed with the patient. I attest to the documentation by the nurse practitioner. Time with Patient: Less than 30
--- NOTE | 2018-06-11 17:58 | P.PN ---
Subjective Progress Note Date: 06/11/18 The patient feels that her pain is reasonably well-controlled, although she has to lay flat on her back for any prolonged length of time. Respiratory status is stable. She denied any fever/chills/nausea/vomiting or new areas of pain. Objective - Vital Signs Vital signs: Vital Signs Temp 97.8 F 06/11/18 16:00 Pulse 92 06/11/18 17:08 Resp 18 06/11/18 16:00 BP 123/70 06/11/18 16:00 Pulse Ox 97 06/11/18 16:00 Intake & Output 06/10/18 06/11/18 06/11/18 18:59 06:59 18:59 Intake Total 240 362.5 684 Output Total 600 600 Balance -360 362.5 84 Weight 61.9 kg Intake: Intake, IV Titration 362.5 Amount Piperacillin-Tazobactam 3 100 .375 gm In Sodium Chloride 0.9% 100 ml @ 25 mls/hr IVPB Q8HR [facility] Rx# :[id number] Sodium Chloride 0.9% 1, 262.5 000 ml @ 75 mls/hr IV . [id number] [facility] Rx#:[id number] Oral 240 684 Output: Urine 600 600 Other: Voiding Method Bedside Commode Bedside Commode # Voids 0 1 # Bowel Movements 0 - Constitutional General appearance: Present: no acute distress - EENT Eyes: Present: EOMI ENT: Present: hearing grossly normal, normal oropharynx - Respiratory Respiratory: bilateral: CTA - Cardiovascular Rhythm: regular Heart sounds: normal: S1, S2 - Gastrointestinal General gastrointestinal: Present: normal bowel sounds, soft - Integumentary Integumentary: Present: normal - Neurologic Neurologic: Present: CNII-XII intact - Musculoskeletal Musculoskeletal: Present: generalized weakness, strength equal bilaterally - Psychiatric Psychiatric: Present: A&O x's 3, appropriate affect - Labs CBC & Chem 7: 06/11/18 06:07 06/11/18 06:07 Labs: Abnormal Lab Results - Last 24 Hours (Table) 06/10/18 06/11/18 06/11/18 Range/Units 07:21 06:07 06:07 WBC 13.7 H (3.8-10.6) k/uL RBC 3.14 L (3.80-5.40) m/uL Hgb 8.3 L (11.4-16.0) gm/dL Hct 27.9 L (34.0-46.0) % MCHC 29.8 L (31.0-37.0) g/dL Neutrophils # 11.9 H (1.3-7.7) k/uL Lymphocytes # 0.8 L (1.0-4.8) k/uL Carbon Dioxide 32 H (22-30) mmol/L Glucose 101 H (74-99) mg/dL Calcium 10.6 H (8.4-10.2) mg/dL CA 15-3 Antigen 183.0 H (0.0-32.3) U/mL Microbiology - Last 24 Hours (Table) 06/08/18 16:05 Gram Stain - Final Sputum Sputum Culture - Final Methicillin resist S. aureus Rosaline albicans Stenotrophomonas maltophilia 06/06/18 13:25 Blood Culture - Preliminary Blood No Growth after 96 hours Assessment and Plan (1) Bone metastases Narrative/Plan: At this time and definite primary source is not evident. CT of the chest abdomen and pelvis showed a small 1.7 cm pulmonary nodule, that is stable. The patient does have a history of left-sided breast cancer treated with mastectomy and hormonal therapy for 5 years. While not very common, late recurrences of hormone receptor positive breast cancer can certainly occur even after 10-15 years. Breast cancer tumor markers were moderately elevated. Therefore at this time metastatic disease from breast cancer appears to be most likely The above was discussed with the patient, and also in detail with the admitting service. Given that time labs, it would be recommended to biopsy confirmed a tissue diagnosis and also do biomarker testing. Interventional radiology has been consulted to biopsy the left hip lesion. Xarelto will be placed on hold for the biopsy and resumed afterwards. The patient will follow-up with Dr. Erwin who treated her previously, as an outpatient Consult will also be paced to radiation oncology at the patient will likely need treatment at least to the left hip lesion Current Visit: Yes Status: Acute Code(s): C79.51 - SECONDARY MALIGNANT NEOPLASM OF BONE SNOMED Code(s): 57034080
[2018-06-11] MEDS: ATORVASTATIN 20 MG TAB PO SCH (20:26)
[2018-06-11] MEDS: FORMOTEROL FUMARATE 20 MCG/2 ML NEBU INHALATION SCH (20:38)
[2018-06-11] MEDS: BUDESONIDE 1 MG/2 ML NEBU INHALATION SCH (20:38)
[2018-06-11] MEDS: SENNOSIDES-DOCUSATE SODIUM 1 EACH TAB PO SCH (21:29)
--- NOTE | 2018-06-11 21:40 | P.PN ---
Subjective Progress Note Date: 06/10/18 Progress note being dictated for Dr. Mike. Interval history: This a 78-year-old female admitted with generalized weakness, status post fall, bilateral pneumonia and multiple other medical issues. Tested negative for influenza. Maintained on broad-spectrum IV antibiotics. Sitting up in chair, breathing improving, more alert. Maintaining O2 sats in the high 90s on 4 L nasal cannula.Receiving potassium replacements for potassium 3.1. Echo reporting normal LV function, EF 55-60%, moderate concentric left ventricular hypertrophy. Brain CT reporting no acute intracranial hemorrhage or midline shift, mild to moderate diffuse cerebral atrophy, chronic small vessel disease, right maxillary lesion noted. CT of neck reporting diffuse osseous metastatic disease with numerous lytic and sclerotic lesions identified possible etiology of right maxillary lesion on brain CT. afebrile, leukocytosis resolved, preliminary blood, urine cultures negative. Maintained on IV fluid hydration with renal function improving. 06/10/18 modified barium swallow reporting no penetration or aspiration.Bone scan scheduled today. Afebrile. Maintaining O2 sats in the high 90s on 4 L nasal cannula. Afebrile. Denies chest pain, palpitations or increased shortness of breath. Short of breath at rest. Diet intake fair. Objective - Vital Signs Vital signs: Vital Signs Temp 97.8 F 06/10/18 07:37 Pulse 86 06/10/18 12:12 Resp 18 06/10/18 12:00 BP 136/81 06/10/18 11:51 Pulse Ox 94 L 06/10/18 11:51 Intake & Output 06/09/18 06/10/18 06/10/18 18:59 06:59 18:59 Intake Total 720 120 Output Total 600 900 Balance 120 -900 120 Weight 61.9 kg Intake: Oral 720 120 Output: Urine 600 900 Other: Voiding Method Bedpan # Voids 1 2 0 # Bowel Movements 0 - Exam PHYSICAL EXAM: VITAL SIGNS: As above GENERAL: Sitting up in chair, alert, increased respiratory effort at rest HEENT: Conjunctivae normal. eyes normal. Oral mucosa moist NECK: No JVD. No thyroid enlargement. No LNs CARDIOVASCULAR: S1, S2 muffled. No murmur RESPIRATION: Breath sounds diminished in the bases. Scattered rhonchi. ABDOMEN: Soft, nontender . No guarding. no masses palpable. Bowel sounds heard. LEGS: No edema. no swelling PSYCHIATRY: Alert and oriented -3, mood and affect normal. NERVOUS SYSTEM: Cranial N 2-12 grossly normal. Moves all 4 limbs. Diffuse weakness No focal deficits. Skin: no rash, dry Microbiology 06/06/18 10:05 Urine,Clean Catch Urine Culture - Final 06/06/18 13:25 Blood Blood Culture - Preliminary No Growth after 24 hours - Labs CBC & Chem 7: 06/11/18 06:07 06/11/18 06:07 Labs: Abnormal Lab Results - Last 24 Hours (Table) 06/09/18 06/09/18 06/09/18 Range/Units 06:28 06:28 06:28 RBC (3.80-5.40) m/uL Hgb (11.4-16.0) gm/dL Hct (34.0-46.0) % MCHC (31.0-37.0) g/dL Lymphocytes # (1.0-4.8) k/uL ESR 48 H (0-20) mm/hr Calcium (8.4-10.2) mg/dL Iron 9 L (50-170) ug/dL Iron Saturation 3.81 L (12.00-45.00) Lactate Dehydrogenase 683 H (313-618) U/L C-Reactive Protein 65.9 H (<10.0) mg/L 06/10/18 06/10/18 Range/Units 07:21 07:21 RBC 3.24 L (3.80-5.40) m/uL Hgb 8.7 L (11.4-16.0) gm/dL Hct 29.0 L (34.0-46.0) % MCHC 29.8 L (31.0-37.0) g/dL Lymphocytes # 0.8 L (1.0-4.8) k/uL ESR (0-20) mm/hr Calcium 10.6 H (8.4-10.2) mg/dL Iron (50-170) ug/dL Iron Saturation (12.00-45.00) Lactate Dehydrogenase (313-618) U/L C-Reactive Protein (<10.0) mg/L Microbiology - Last 24 Hours (Table) 06/06/18 13:25 Blood Culture - Preliminary Blood No Growth after 72 hours 06/08/18 16:05 Gram Stain - Preliminary Sputum Sputum Culture - Preliminary Assessment and Plan Assessment: -Fall and weakness .-New Diffuse osseous metastatic disease with numerous lytic and sclerotic lesions throughout cervical thoracic spine, sacrum, left iliac bone, multiple vertebral bodies per CTs -Acute on chronic hypoxic respiratory failure secondary to right lower lobe pneumonia, consider gram-negative aspiration pneumonia with possible sepsis present on admission -Influenza ruled out -A. fib RVR -Congestive heart failure, unlikely -Dehydration -Acute renal failure -Right maxillary lesion per brain CT. -History of breast cancer, left mastectomy -Remote history of nicotine dependence -History of atrial fibrillation with RVR -Hypertension -Hyperlipidemia -History of COPD -Hypokalemia Plan: Continue current medication regime ,monitoring and symptomatic treatment. Evaluated by oncology with recommendations noted .bone scan ordered. Biopsy of left iliac crest being .discussed Maintain IV fluid hydration, nebulized bronchodilators. Encourage oral intake. Close monitoring of renal function and electrolytes with repeat labs in a.m. ordered. PT/OT, prognosis guarded given multiple complex medical issues The impression and plan of care has been dictated as directed. : I performed a history and examination of this patient, discussed the same with the dictator. I agree with the dictator's note ,documented as a scribe. Any additional findings or plans will be noted.
[2018-06-12] MEDS: ACETAMINOPHEN TAB 325 MG TAB PO PRN ×2 (00:52→22:34)
[2018-06-12] MEDS ORDERED: VANCOMYCIN 1,250 MG in SODIUM CHLORIDE 0.9% 250 ML IVPB SCH (02:00)
[2018-06-12] MEDS: SODIUM CHLORIDE 0.9% 1,000 ML IV SCH (03:35)
[2018-06-12 06:21] LABS: Basophils % (A) 0 %; Eosinophils # (A) 0.1 k/uL (0-0.7); Eosinophils % (A) 0 %; Hypochromasia Marked; Lymphocytes # (A) 0.8 k/uL (1.0-4.8); Lymphocytes % (A) 5 %; MCH 26.6 pg (25.0-35.0); MCHC 30.6 g/dL (31.0-37.0); Mean Platelet Volume 7.2; Monocytes # (A) 0.8 k/uL (0-1.0); Monocytes % (A) 6 %; Neutrophils # (A) 12.1 k/uL (1.3-7.7); Neutrophils % (A) 87 %; Platelet Count 258 k/uL (150-450); RBC 2.99 m/uL (3.80-5.40); RDW 14.6 % (11.5-15.5); WBC 13.9 k/uL (3.8-10.6)
[2018-06-12 06:38] LABS: Anion Gap 5 mmol/L; Blood Urea Nitrogen 10 mg/dL (7-17); Calcium 10.1 mg/dL (8.4-10.2); Carbon Dioxide 31 mmol/L (22-30); Chloride 101 mmol/L (98-107); Glucose 106 mg/dL (74-99); Potassium 3.5 mmol/L (3.5-5.1); Sodium 137 mmol/L (137-145)
[2018-06-12] MEDS: PANTOPRAZOLE 40 MG TABLET PO SCH ×2 (07:06→17:31)
[2018-06-12] MEDS: FORMOTEROL FUMARATE 20 MCG/2 ML NEBU INHALATION SCH ×2 (07:19→20:17)
[2018-06-12] MEDS: BUDESONIDE 1 MG/2 ML NEBU INHALATION SCH ×2 (07:19→20:17)
[2018-06-12] MEDS: IPRATROPIUM-ALBUTEROL 3 ML NEB INHALATION SCH ×4 (07:20→20:17)
[2018-06-12] MEDS: DOCUSATE 100 MG CAP PO SCH ×2 (08:30→21:20)
[2018-06-12] MEDS: THIAMINE 100 MG TAB PO SCH (08:30)
[2018-06-12] MEDS: SENNOSIDES-DOCUSATE SODIUM 1 EACH TAB PO SCH ×2 (08:30→21:20)
[2018-06-12] MEDS: POTASSIUM CHLORIDE ER 20 MEQ TAB.ER PO SCH (08:30)
[2018-06-12] MEDS: PIPERACILLIN-TAZOBACTAM 3.375 GM in SODIUM CHLORIDE 0.9% 100 ML IVPB SCH (08:30)
[2018-06-12] MEDS: predniSONE 20 MG TAB PO SCH (08:30)
[2018-06-12] MEDS: MULTIVITAMINS, THERA 1 EACH TAB PO SCH (08:30)
[2018-06-12] MEDS: CALCIUM CARB-VIT D 500MG-200UN 1 EACH TAB PO SCH (08:30)
[2018-06-12] MEDS: DILTIAZEM CD 240 MG CAP.ER.24H PO SCH (08:30)
[2018-06-12] MEDS: FERROUS SULFATE 325 MG TAB PO SCH (08:30)
[2018-06-12] MEDS: FOLIC ACID 1 MG TAB PO SCH (08:30)
--- NOTE | 2018-06-12 09:53 | P.PN ---
Subjective 78-year-old female admitted with generalized weakness, status post fall, bilateral pneumonia and multiple other medical issues. Tested negative for influenza. Maintained on broad-spectrum IV antibiotics. Sitting up in chair, breathing improving, more alert. Maintaining O2 sats in the high 90s on 4 L nasal cannula.Receiving potassium replacements for potassium 3.1. Echo reporting normal LV function, EF 55-60%, moderate concentric left ventricular hypertrophy. Brain CT reporting no acute intracranial hemorrhage or midline shift, mild to moderate diffuse cerebral atrophy, chronic small vessel disease, right maxillary lesion noted. CT of neck reporting diffuse osseous metastatic disease with numerous lytic and sclerotic lesions identified possible etiology of right maxillary lesion on brain CT. afebrile, leukocytosis resolved, preliminary blood, urine cultures negative. Maintained on IV fluid hydration with renal function improving. 06/10/18 modified barium swallow reporting no penetration or aspiration.Bone scan scheduled today. Afebrile. Maintaining O2 sats in the high 90s on 4 L nasal cannula. Afebrile. Denies chest pain, palpitations or increased shortness of breath. Short of breath at rest. Diet intake fair. 06/12/2018 Patient is still not sure whether to get a biopsy. I had an extensive discussion as strain today as well regarding the options. The 2 options 1 being hospice and not worry about any further evaluation and the second option is having a biopsy and if needed chemo more than go on hospice. Patient doesn' t want any chemotherapy but okay with the hormonal therapy for possible breast cancer with metastatic disease. Although patient is still not sure whether she wanted biopsy or pursue the option of hospice. Anti-correlation is on hold for possible biopsy today. Patient is still on 4 L probably will not be able to lie flat for the procedure and definitely increased risk for the procedure. Constitutional: Denied any fatigue denied any fever. Cardio vascular: denied any chest pain, palpitations Gastrointestinal denied any nausea vomiting Pulmonary: Denied any increased shortness of breath cough Neurologic denied any new focal deficits All inpatient medications were reviewed and appropriate changes in these medications as dictated in the interval history and assessment and plan. Objective - Vital Signs Vital signs: Vital Signs Temp 97.7 F 06/12/18 08:00 Pulse 92 06/12/18 08:00 Resp 20 06/12/18 08:00 BP 136/78 06/12/18 08:00 Pulse Ox 100 06/12/18 08:00 Intake & Output 06/11/18 06/12/18 06/12/18 18:59 06:59 18:59 Intake Total 1350 400 222 Output Total 1200 Balance 150 400 222 Weight 111.7 kg Intake: Intake, IV Titration 400 Amount Piperacillin-Tazobactam 3 100 .375 gm In Sodium Chloride 0.9% 100 ml @ 25 mls/hr IVPB Q8HR [facility] Rx# :[id number] Sodium Chloride 0.9% 1, 300 000 ml @ 75 mls/hr IV . [id number] [facility] Rx#:[id number] Oral 1350 222 Output: Urine 1200 Other: Voiding Method Bedside Commode Bedside Commode Bedside Commode # Voids 1 # Bowel Movements 1 - Exam PHYSICAL EXAMINATION: GENERAL: The patient is alert and oriented x3, not in any significant acute distress. Well developed, well nourished. Has some baseline respiratory distress is on 4 L of oxygen HEENT: Pupils are round and equally reacting to light. EOMI. No scleral icterus. No conjunctival pallor. Normocephalic, atraumatic. No pharyngeal erythema. No thyromegaly. CARDIOVASCULAR: S1 and S2 present. No murmurs, rubs, or gallops. PULMONARY: Diminished air entry into bilateral lung carroll no significant wheezing ABDOMEN: Soft, nontender, nondistended, normoactive bowel sounds. No palpable organomegaly. MUSCULOSKELETAL: No joint swelling or deformity. EXTREMITIES: No cyanosis, clubbing, or pedal edema. NEUROLOGICAL: Gross neurological examination did not reveal any focal deficits. SKIN: No rashes. - Labs CBC & Chem 7: 06/12/18 05:51 06/12/18 05:51 Labs: Abnormal Lab Results - Last 24 Hours (Table) 06/12/18 06/12/18 Range/Units 05:51 05:51 WBC 13.9 H (3.8-10.6) k/uL RBC 2.99 L (3.80-5.40) m/uL Hgb 8.0 L (11.4-16.0) gm/dL Hct 26.0 L (34.0-46.0) % MCHC 30.6 L (31.0-37.0) g/dL Neutrophils # 12.1 H (1.3-7.7) k/uL Lymphocytes # 0.8 L (1.0-4.8) k/uL Carbon Dioxide 31 H (22-30) mmol/L Glucose 106 H (74-99) mg/dL Microbiology - Last 24 Hours (Table) 06/08/18 16:05 Gram Stain - Final Sputum Sputum Culture - Final Methicillin resist S. aureus Rosaline albicans Stenotrophomonas maltophilia 06/06/18 13:25 Blood Culture - Preliminary Blood No Growth after 120 hours Assessment and Plan Plan: Assessment and Plan Assessment: -Fall and weakness .-New Diffuse osseous metastatic disease with numerous lytic and sclerotic lesions throughout cervical thoracic spine, sacrum, left iliac bone, multiple vertebral bodies per CTs, possibility of biopsy today -Acute on chronic hypercapnic respiratory failure secondary to COPD and there may be a possibility of right lower lobe pneumonia patient is being continued on steroids -A. fib and the rate controlled anti-correlation is on hold for above-mentioned reasons -History of breast cancer, left mastectomy -Hypertension -Hyperlipidemia
[2018-06-12] MEDS: HYDROcodone/APAP 5-325MG 1 EACH TAB PO PRN (15:08)
--- NOTE | 2018-06-12 15:13 | P.PN ---
Subjective Progress Note Date: 06/12/18 Principal diagnosis: Acute on chronic hypoxic respiratory failure secondary to right lower lobe pneumonia, community-acquired, A. fib RVR This is a 78-year-old white female patient of Dr. Turner, with past medical history of stage IV COPD, on home oxygen, chronic A. fib, hypertension, hyperlipidemia, previous episodes of pneumonia, left breast cancer with mastectomy, who was brought in to the emergency department by ambulance on 06/06 after she sustained a fall at home last night. Patient apparently had being having increased weakness, some limited cough, fever and chills. She states she does not remember whether she lost consciousness, she laid on the floor and could not change positions. She denies any injuries. Patient lives by herself, and she remained on the floor until the arrival of the ambulance. Patient was tachycardic, hypotensive hypoxemic in the emergency department. IV hydration was started, patient was started on broad-spectrum antibiotics for possibility of pneumonia. Initial chest x-ray showed some chronic pulmonary fibrotic changes, but no acute findings. Follow-up chest x-ray on 06/07/2018 showed worsening right basilar airspace disease, possibly developing pneumonia. Patient was in A. fib RVR, with a rate of 114 BPM. Lab work was reviewed, showed WBC of 14.3, hemoglobin of 10.7, sodium 140, potassium is 3.8, chloride is 97, CO2 is 20, BUN of 38, creatinine is 1.63, troponin of 0.094, proBNP was 6150. Total CK was 333 and CK-MB of 7.5, urinalysis showed 1+ protein, trace ketones, and rare mucus and yeast. Influenza was not detected. On 06/08/2018 patient seen in follow-up on selective care unit, she is awake and alert, sitting up in the chair, in no acute distress. Pulse ox on 4 L per nasal cannula is 98%, she is afebrile, hemodynamically stable. Remains on IV hydration, 0.9 normal saline at a rate of 100 ML per hour. Blood and urine cultures are negative thus far. Lung sounds are positive for some scattered rhonchi. Today's labs have been reviewed, WBCs 8.6, hemoglobin is 8.8, sodium is 142, potassium is 3.1, chloride is 105, CO2 is 30, BUN is 34, creatinine is 1.16. Fluids a screen was not detected. She denies any chest pain. Brain CT was completed and showed no acute intracranial hemorrhage or midline shift, mild to moderate diffuse age-related cerebral atrophy and small chronic ischemic changes. Echocardiogram showed left ventricular systolic function with an EF between 55 and 60%, mild tricuspid regurgitation, mild mitral regurgitation, mild pulmonary hypertension with the right-sided pressures of 42 mmHg. On 06/09/2018 patient seen in follow-up on selective care unit, she is awake alert, sitting up in the chair, in no acute distress, denies any difficulty breathing, she is currently on 4 L per nasal cannula and her pulse ox is 98%, she is hemodynamically stable, remains in A. fib, and the rate is better controlled, 90 BPM, afebrile. Lung sounds are diminished with some minimal scattered rhonchi and wheezing. Today's lab work has been reviewed, WBC is 8.2 , hemoglobin is 8.6, electrolytes are within normal limits, renal profile continues to improve, BUN is 19 and creatinine 0.98. Today's chest x-ray shows COPD, multifocal patchy interstitial and airspace opacities along the bases with small effusions. Clinically patient remains stable, preliminary Gram stain of sputum showed no organisms, patient is covered empirically with Zosyn, she is on nebulized bronchodilators, Symbicort. On 06/10/2018 patient seen in follow-up on selective care unit, awake alert, in no acute distress. CT of the head revealed lytic lesions on the skull, medical oncology was consulted. CT chest/abdomen/pelvis is completed and showed small pleural effusions with patchy interstitial and airspace opacities at the lung bases, underlying [id number] emphysema in the upper lungs, left upper lobe pulmonary nodule some faint calcification, was 1.[address] of the abdomen showed cholelithiasis, no obvious mesenteric or retroperitoneal lymphadenopathy , no dilated small bowel, no free fluid or free air. Multiple lytic lesions throughout the pelvis and small focal areas of sclerosis even involving the proximal femurs, large area of soft tissue lytic destruction posterior left iliac bone, and additional lytic leak disease involving the sacrum, spine, ribs and sclerotic foci within the sternum. Patient is for a bone scan today. Pulse ox is 99% on 4 L per nasal cannula, patient is afebrile, denies any worsening shortness of breath, lung sounds are diminished, no significant rhonchi or wheezes today. Today's lab work has been reviewed, WBC is 7.6, hemoglobin is 8.7, electrolyte and renal profile were within normal limits, calcium is 10.6. On 06/11/2018 patient seen again in follow-up on selective care unit, she is more dyspneic on today's exam, wheezy. We'll start her on some oral prednisone , she is already on nebulized bronchodilators. CT chest was completed, and showed no evidence of pulmonary embolism. Pulmonary arterial hypertension, diffuse osteoblastic and osteolytic metastasis throughout the thorax, small to moderate right and small left pleural effusions with bibasilar airspace disease that may represent atelectasis or pneumonia, mild pulmonary fibrosis. Left upper lobe 1.7 cm pulmonary nodule highly suspicious for metastatic disease. Nuclear bone scan findings were compatible with diffuse blastic and lytic osseous metastasis within the proximal femurs bilaterally, iliac bones, right humerus, left upper extremity soft tissues, left inferior pubic ramus, sternum, and throughout the entire spine. Medical oncology is following, 2 vaginal radiology has been consulted for biopsy of left iliac crest. Sputum culture was positive for MRSA, and gram-negative bacilli, final culture is pending, patient is currently covered with Zosyn, we will add vancomycin. Today's labs showed WBC of 13.7, hemoglobin of 8.3, sodium is 139, potassium is 3.8, chloride is 102, CO2 32, BUN was 10, creatinine 0.83. CA 153 antigen was 183, and [place] 2729 was 182. On 06/12/2018 patient seen in follow-up selective care unit. This morning she went downstairs to have a CT-guided biopsy of the left hip lesion. Patient was not able to tolerate being positioned on her side in her stomach, end up refusing the procedure. She returned to her room, currently is seen sitting up in the recliner, lung sounds vesicular bronchospastic, and patient has a congested cough but not able to bring up any sputum today. Sputum culture was positive for MRSA and stenotrophomonas maltophilia, and coverage includes vancomycin and Zosyn. Stenotrophomonas and MRSA both sensitive to Bactrim, we will stop the current antibiotic coverage and switch the patient to Zosyn. Dr. Turner had a long discussion with the patient yesterday, and patient had stated that she wanted to discuss it with her niece who lives out of town. Today Dr. Turner spoke again with the patient and the patient is considering hospice. She does not want any aggressive treatment testing for the suspected metastatic disease. This is reasonable given the patient's very poor underlying lung function, and multiple comorbidities. Objective - Vital Signs Vital signs: Vital Signs Temp 97.7 F 06/12/18 08:00 Pulse 94 06/12/18 11:52 Resp 20 06/12/18 11:52 BP 137/87 06/12/18 11:52 Pulse Ox 99 06/12/18 11:52 Intake & Output 06/11/18 06/12/18 06/12/18 18:59 06:59 18:59 Intake Total 1350 400 444 Output Total 1200 800 Balance 150 400 -356 Weight 111.7 kg Intake: Intake, IV Titration 400 Amount Piperacillin-Tazobactam 3 100 .375 gm In Sodium Chloride 0.9% 100 ml @ 25 mls/hr IVPB Q8HR [facility] Rx# :[id number] Sodium Chloride 0.9% 1, 300 000 ml @ 75 mls/hr IV . [id number] [facility] Rx#:[id number] Oral 1350 444 Output: Urine 1200 800 Other: Voiding Method Bedside Commode Bedside Commode Bedside Commode # Voids 1 # Bowel Movements 1 - Exam GENERAL EXAM: Alert, pleasant, 78 -year-old elderly frail looking female, mildly short of breath, and wheezy HEAD: Normocephalic/atraumatic. EYES: Normal reaction of pupils, equal size. Conjunctiva pink, sclera white. NOSE: Clear with pink turbinates. THROAT: No erythema or exudates. NECK: No masses, no JVD, no thyroid enlargement, no adenopathy. CHEST: No chest wall deformity. Symmetrical expansion. LUNGS: Equal air entry with scattered rhonchi and wheezes CVS: Regular rate and rhythm, normal S1 and S2, no gallops, no murmurs, no rubs ABDOMEN: Soft, nontender. No hepatosplenomegaly, normal bowel sounds, no guarding or rigidity. EXTREMITIES: No clubbing, no edema, no cyanosis, 2+ pulses and upper and lower extremities. Skin on lower extremities is dry and flaky MUSCULOSKELETAL: Muscle strength and tone normal. SPINE: No scoliosis or deformity SKIN: No rashes CENTRAL NERVOUS SYSTEM: Alert and oriented -3. No focal deficits, tone is normal in all 4 extremities. PSYCHIATRIC: Alert and oriented -3. Appropriate affect. Intact judgment and insight. - Labs CBC & Chem 7: 06/12/18 05:51 06/12/18 05:51 Labs: Abnormal Lab Results - Last 24 Hours (Table) 06/12/18 06/12/18 Range/Units 05:51 05:51 WBC 13.9 H (3.8-10.6) k/uL RBC 2.99 L (3.80-5.40) m/uL Hgb 8.0 L (11.4-16.0) gm/dL Hct 26.0 L (34.0-46.0) % MCHC 30.6 L (31.0-37.0) g/dL Neutrophils # 12.1 H (1.3-7.7) k/uL Lymphocytes # 0.8 L (1.0-4.8) k/uL Carbon Dioxide 31 H (22-30) mmol/L Glucose 106 H (74-99) mg/dL Microbiology - Last 24 Hours (Table) 06/08/18 16:05 Gram Stain - Final Sputum Sputum Culture - Final Methicillin resist S. aureus Rosaline albicans Stenotrophomonas maltophilia 06/06/18 13:25 Blood Culture - Preliminary Blood No Growth after 120 hours Assessment and Plan Plan: Assessment: #1. Acute on chronic hypoxic respiratory failure secondary to right lower lobe pneumonia, sputum cultures positive for MRSA, and Stenotrophomonas maltophilia #2. Acute COPD exacerbation secondary to above #3. Left upper lobe 1.7 cm pulmonary nodule suspicious for metastatic disease #4. New diffuse osseous metastatic disease characterized by lytic and sclerotic lesions involving the sacrum, left iliac bone, multiple vertebral bodies, concerning for underlying malignancy, etiology is under investigation #5. Nonspecific lytic lesion involving the right maxilla #6. A. fib RVR #7. Fall at home, and patient was on the floor for a period of time #8. Dehydration #9. Acute kidney injury #10. Elevated troponins #11. Advanced stage IV COPD with the baseline FEV1 of 0.67 L or 31% predicted on home oxygen #12. Hypertension #13. Hyperlipidemia #14. Previous history of pneumonia #15. History of left breast cancer status post mastectomy Plan: Patient was unable to undergo CT-guided biopsy of the left hip lesion. She decided to refuse the procedure, at this time she wants to go home with hospice , she does not want any aggressive treatment or testing for the suspected metastatic disease. This is reasonable given patient's very poor lung function , multiple comorbidities. We will switch the IV antibiotics to oral Bactrim to cover both MRSA and stenotrophomonas in the sputum. Discontinue vancomycin and Zosyn. Consult hospice. Change CODE STATUS to DO NOT RESUSCITATE per patient' s wishes I performed a history & physical examination of the patient and discussed their management with my nurse practitioner, Olena Maddox. I reviewed the nurse practitioner's note and agree with the documented findings and plan of care. Lung sounds are diminished with some scattered rhonchi. The findings and the impression was discussed with the patient. I attest to the documentation by the nurse practitioner. Time with Patient: Less than 30
[2018-06-12 16:20] VITALS: BMI 40.9
--- NOTE | 2018-06-12 17:49 | P.CONS ---
History of Present Illness - Reason for Consult Consult date: 06/12/18 bone metastases Requesting physician: Toni Cr - Chief Complaint back/neck pain - History of Present Illness The patient is a 78 year old female with a remote history of left breast cancer managed with mastectomy and adjuvant hormonal therapy 14 years ago. She now presents due to a fall at home and failure to thrive. She was found to have multiple areas of bony metastatic disease. Since her admission on 06/06 the patient has had a CT of the neck, chest, abdomen and pelvis. These studies did not reveal an obvious primary tumor, but the patient does have extensive bony metastatic disease including lesions in the C-spine, T3, maxilla, multiple pelvic bones including a 5 cm left iliac lesion and the bilateral proximal femurs. She does have a 1.7 cm left upper lobe lung nodule as well. The patient was scheduled to undergo CT-guided bone biopsy today but ultimately refused at the time of the procedure. She will be meeting with hospice later today. She complains of pain in the back of her head and neck. She denies difficulty with pain in the pelvis or mid-lower back. No numb/tingling in the extremities or loss of bladder/bowel control. Her main care-taker is her niece. Review of Systems Constitutional: Denies chills, Denies fever Eyes: denies blurred vision Ears, nose, mouth and throat: Reports headache, Denies mouth pain Cardiovascular: Reports dyspnea on exertion Respiratory: Reports cough, Reports dyspnea Gastrointestinal: Denies abdominal pain Genitourinary: Denies dysuria Musculoskeletal: Reports neck pain, Reports neck stiffness, Denies leg numbness/ tingling, Denies low back pain Neurological: Denies loss of vision, Denies numbness, Denies seizures Past Medical History Past Medical History: Atrial Fibrillation, Cancer, COPD, Hyperlipidemia, Hypertension, Pneumonia, Syncope Additional Past Medical History / Comment(s): BREAST CANCER- LEFT MASTECTOMY, COUGHING UP BLOOD, HOME O2 2.5 LITERS N/C History of Any Multi-Drug Resistant Organisms: MRSA Year Discovered:: 06/08/18 MDRO Source:: MRSA SPUTUM Past Surgical History: Breast Surgery Additional Past Surgical History / Comment(s): LEFT PARTICAL MASECTOMY, bilateral cataract removal-->implant, COLONOSCOPY Past Anesthesia/Blood Transfusion Reactions: No Reported Reaction Past Psychological History: No Psychological Hx Reported Additional Psychological History / Comment(s): Pt resides with her brother. She has a walker she uses if going longer distances. She has home oxygen which she wears at 2.5L/[place] at [facility]. She has a nebulizer. Pt does not drive. She has missed appts due to ride problems. She has no current home care but after previous hospitalizations she has use [facility]. VERIFIED by Gamal Jiménez RN Smoking Status: Never smoker Past Alcohol Use History: None Reported Additional Past Alcohol Use History / Comment(s): PT STATED STOPPED SMOKING 1.5 MONHTS AGO Past Drug Use History: None Reported - Past Family History Father History Unknown: Yes Mother Additional Family Medical History / Comment(s): Mother at age 38 yrs. She was and labored for 52 hours and as a complication of that per pt. VERIFIED Sister(s) Family Medical History: CVA/TIA, Seizure Disorder Additional Family Medical History / Comment(s): at age 42 yrs from seizure/ CVA. Brother(s) Family Medical History: COPD, Diabetes Mellitus Additional Family Medical History / Comment(s): at age 61 yrs. Medications and Allergies Home Medications Medication Instructions Recorded Confirmed Type Jackson Cit/Mag/D3/Zn/Customer Energy Specialist/Leonard/Bor 1 tab PO DAILY 12/18/13 06/06/18 History [Citracal-Vit D + Magnesium Tab] Diltiazem Cd [Cardizem CD] 180 mg PO DAILY 12/18/13 06/06/18 History Losartan/Hydrochlorothiazide 1 tab PO DAILY 12/18/13 06/06/18 History [Hyzaar 100-25 Tablet] Potassium Chloride ER [K-Dur 20] 20 meq PO DAILY 12/18/13 06/06/18 History Docusate [Colace] 100 mg PO BID #60 cap 09/21/15 06/06/18 Rx Ipratropium-Albuterol Nebulize 3 ml INHALATION RT-QID #0 ampul.neb 09/21/15 Rx [Duoneb 0.5 mg-3 mg/3 ml Soln] Ferrous Sulfate [Iron (65 MG 325 mg PO DAILY 10/03/15 06/06/18 History Elemental)] Multivitamins, Thera [Multivitamin 1 tab PO DAILY #30 tablet 10/05/15 06/06/18 Rx (formulary)] Ipratropium/Albuterol Sulfate 1 puff INHALATION RT-QID 06/06/18 06/06/18 History [Combivent Respimat Inhaler] Pravastatin Sodium [Pravachol] 40 mg PO DAILY 06/06/18 06/06/18 History Rivaroxaban [Xarelto] 20 mg PO DAILY 06/06/18 06/06/18 History Allergies Allergy/AdvReac Type Severity Reaction Status Date / Time erythromycin base Allergy Unknown Verified 06/06/18 17:09 Macrolide Antibiotics Allergy Unknown Verified 06/06/18 17:09 azithromycin AdvReac Nausea & Verified 06/06/18 17:09 Vomiting Physical Exam Vitals: Vital Signs Temp Pulse Pulse Resp BP Pulse Ox 06/12/18 17:12 94 06/12/18 16:59 90 22 97 06/12/18 11:52 94 18 137/87 99 06/12/18 11:04 92 06/12/18 10:51 92 06/12/18 08:00 97.7 F 92 20 136/78 100 06/12/18 07:52 88 06/12/18 07:34 88 06/12/18 07:33 88 06/12/18 07:20 88 06/12/18 03:25 97.8 F 82 18 121/62 97 06/11/18 23:19 98.5 F 97 16 115/68 97 06/11/18 21:02 88 06/11/18 20:55 86 06/11/18 20:54 86 06/11/18 20:41 90 06/11/18 20:32 98.4 F 90 17 130/62 96 Intake and Output 06/12/18 06/12/18 06/12/18 06:59 14:59 22:59 Intake Total 400 444 Output Total 800 Balance 400 -356 Intake: Intake, IV Titration 400 Amount Piperacillin-Tazobactam 3 100 .375 gm In Sodium Chloride 0.9% 100 ml @ 25 mls/hr IVPB Q8HR [facility] Rx# :[id number] Sodium Chloride 0.9% 1, 300 000 ml @ 75 mls/hr IV . [id number] [facility] Rx#:[id number] Oral 444 Output: Urine 800 Other: Voiding Method Bedside Commode Bedside Commode # Voids 1 # Bowel Movements 1 Weight 111.7 kg 111.7 kg - Constitutional General appearance: disheveled - EENT Eyes: EOMI, PERRLA - Neck Neck: rigidity - Respiratory Respiratory: bilateral: diminished - Cardiovascular Rhythm: regular - Gastrointestinal General gastrointestinal: no distended - Integumentary Integumentary: no cellulitis - Neurologic Neurologic: CNII-XII intact - Musculoskeletal Musculoskeletal: strength equal bilaterally - Psychiatric Psychiatric: A&O x's 3, appropriate affect Results CBC & Chem 7: 06/12/18 05:51 06/12/18 05:51 Labs: Abnormal Lab Results - Last 24 Hours (Table) 06/12/18 06/12/18 Range/Units 05:51 05:51 WBC 13.9 H (3.8-10.6) k/uL RBC 2.99 L (3.80-5.40) m/uL Hgb 8.0 L (11.4-16.0) gm/dL Hct 26.0 L (34.0-46.0) % MCHC 30.6 L (31.0-37.0) g/dL Neutrophils # 12.1 H (1.3-7.7) k/uL Lymphocytes # 0.8 L (1.0-4.8) k/uL Carbon Dioxide 31 H (22-30) mmol/L Glucose 106 H (74-99) mg/dL Microbiology - Last 24 Hours (Table) 06/08/18 16:05 Gram Stain - Final Sputum Sputum Culture - Final Methicillin resist S. aureus Rosaline albicans Stenotrophomonas maltophilia 06/06/18 13:25 Blood Culture - Preliminary Blood No Growth after [address] scan - abdomen: report reviewed, image reviewed CT scan - chest: report reviewed, image reviewed CT Scan - head: report reviewed, image reviewed CT scan - pelvis: report reviewed, image reviewed Assessment and Plan Plan: 1. Metastatic carcinoma of unknown primary: Patient has diffuse bony metastases. She is largely asymptomatic (including a large maxillary tumor), but does report neck and back of skull pain. She does have disease in the C- spine which could explain this (including a lytic lesion in the dens). She is currently not interested in pursuit of any aggressive therapy. She will speak with her niece as well as with hospice this evening. She is not completely decided on this course. We did discuss possible palliative radiotherapy, but she is not interested in such treatment at this time. Time with Patient: Greater than 30
[2018-06-12] MEDS: SULFAMETHOX-TMP 800-160MG 1 EACH TAB PO SCH (20:17)
[2018-06-12] MEDS: ATORVASTATIN 20 MG TAB PO SCH (20:17)
[2018-06-13] MEDS: IPRATROPIUM-ALBUTEROL 3 ML NEB INHALATION PRN ×2 (02:20→04:59)
[2018-06-13] MEDS: HYDROcodone/APAP 5-325MG 1 EACH TAB PO PRN (02:33)
[2018-06-13] MEDS: SODIUM CHLORIDE 0.9% 1,000 ML IV SCH ×2 (04:46→05:53)
[2018-06-13] MEDS: PANTOPRAZOLE 40 MG TABLET PO SCH ×2 (06:38→17:36)
[2018-06-13] MEDS: SENNOSIDES-DOCUSATE SODIUM 1 EACH TAB PO SCH ×2 (08:18→20:52)
[2018-06-13] MEDS: FERROUS SULFATE 325 MG TAB PO SCH (08:18)
[2018-06-13] MEDS: predniSONE 20 MG TAB PO SCH (08:18)
[2018-06-13] MEDS: SULFAMETHOX-TMP 800-160MG 1 EACH TAB PO SCH (08:18)
[2018-06-13] MEDS: DILTIAZEM CD 240 MG CAP.ER.24H PO SCH (08:18)
[2018-06-13] MEDS: THIAMINE 100 MG TAB PO SCH (08:18)
[2018-06-13] MEDS: DOCUSATE 100 MG CAP PO SCH ×2 (08:18→20:52)
[2018-06-13] MEDS: FOLIC ACID 1 MG TAB PO SCH (08:19)
[2018-06-13] MEDS: MULTIVITAMINS, THERA 1 EACH TAB PO SCH (08:19)
[2018-06-13] MEDS: POTASSIUM CHLORIDE ER 20 MEQ TAB.ER PO SCH (08:19)
[2018-06-13] MEDS: BUDESONIDE 1 MG/2 ML NEBU INHALATION SCH ×2 (08:35→19:44)
[2018-06-13] MEDS: IPRATROPIUM-ALBUTEROL 3 ML NEB INHALATION SCH ×4 (08:35→19:45)
[2018-06-13] MEDS: FORMOTEROL FUMARATE 20 MCG/2 ML NEBU INHALATION SCH ×2 (08:35→19:44)
[2018-06-13] MEDS ORDERED: VANCOMYCIN TROUGH DUE 1 EACH MISC MISCELLANE ONE (09:00)
[2018-06-13 10:23] LABS: HCT 30.6 % (34.0-46.0); HGB 9.2 gm/dL (11.4-16.0); Hypochromasia Marked; MCH 26.5 pg (25.0-35.0); MCHC 30.1 g/dL (31.0-37.0); Platelet Count 376 k/uL (150-450); RBC 3.48 m/uL (3.80-5.40); RDW 14.9 % (11.5-15.5); WBC 19.1 k/uL (3.8-10.6)
[2018-06-13 10:25] LABS: Calcium 11.2 mg/dL (8.4-10.2); Potassium 4.1 mmol/L (3.5-5.1)
[2018-06-13] MEDS: ACETAMINOPHEN TAB 500 MG TAB PO PRN (10:35)
--- NOTE | 2018-06-13 11:02 | P.DS ---
Providers Date of admission: 06/06/18 16:49 Attending physician: Michelle Mike Consults: 06/06/18 16:50 Consult Physician Routine Consulting Provider: Teri Hall Consult Reason/Comments: Elevated troponin, rapid atrial fibrillation Do you want consulting provider notified?: Yes 06/06/18 16:57 Consult Physician Routine Consulting Provider: Mabel العراقي Consult Reason/Comments: chf?? Do you want consulting provider notified?: Yes 06/06/18 16:58 Consult Physician Routine Consulting Provider: Hany Carr Consult Reason/Comments: pneumonia Do you want consulting provider notified?: Yes 06/08/18 16:39 Consult Physician Routine Consulting Provider: Toni Cr Consult Reason/Comments: Diffuse osseous metastatic disease Do you want consulting provider notified?: Yes 06/11/18 17:58 Consult Physician Routine Consulting Provider: Hill Westbrook Consult Reason/Comments: bone metastasis. Need for palliative radiation Do you want consulting provider notified?: Yes Primary care physician: [facility] Hospital Course: 78-year-old female admitted with generalized weakness, status post fall, bilateral pneumonia and multiple other medical issues. Tested negative for influenza. Maintained on broad-spectrum IV antibiotics. Sitting up in chair, breathing improving, more alert. Maintaining O2 sats in the high 90s on 4 L nasal cannula.Receiving potassium replacements for potassium 3.1. Echo reporting normal LV function, EF 55-60%, moderate concentric left ventricular hypertrophy. Brain CT reporting no acute intracranial hemorrhage or midline shift, mild to moderate diffuse cerebral atrophy, chronic small vessel disease, right maxillary lesion noted. CT of neck reporting diffuse osseous metastatic disease with numerous lytic and sclerotic lesions identified possible etiology of right maxillary lesion on brain CT. afebrile, leukocytosis resolved, preliminary blood, urine cultures negative. Maintained on IV fluid hydration with renal function improving. 06/10/18 modified barium swallow reporting no penetration or aspiration.Bone scan scheduled today. Afebrile. Maintaining O2 sats in the high 90s on 4 L nasal cannula. Afebrile. Denies chest pain, palpitations or increased shortness of breath. Short of breath at rest. Diet intake fair. 06/12/2018 Patient is still not sure whether to get a biopsy. I had an extensive discussion as strain today as well regarding the options. The 2 options 1 being hospice and not worry about any further evaluation and the second option is having a biopsy and if needed chemo more than go on hospice. Patient doesn' t want any chemotherapy but okay with the hormonal therapy for possible breast cancer with metastatic disease. Although patient is still not sure whether she wanted biopsy or pursue the option of hospice. Anti-correlation is on hold for possible biopsy today. Patient is still on 4 L probably will not be able to lie flat for the procedure and definitely increased risk for the procedure. 06/13/2018 Patient wanted to go tomorrow would on hospice. Hospice services were consulted and a moderately is on will be notified and the patient probably will be discharged tomorrow today if everything was said is set up for that. Patient is complaining of pain in the neck area patient has some chronic neck issues was basis soft brace PHYSICAL EXAMINATION: GENERAL: The patient is alert and oriented x3, not in any significant acute distress. Well developed, well nourished. Has some baseline respiratory distress is on 4 L of oxygen HEENT: Pupils are round and equally reacting to light. EOMI. No scleral icterus. No conjunctival pallor. Normocephalic, atraumatic. No pharyngeal erythema. No thyromegaly. CARDIOVASCULAR: S1 and S2 present. No murmurs, rubs, or gallops. PULMONARY: Diminished air entry into bilateral lung carroll no significant wheezing ABDOMEN: Soft, nontender, nondistended, normoactive bowel sounds. No palpable organomegaly. MUSCULOSKELETAL: No joint swelling or deformity. EXTREMITIES: No cyanosis, clubbing, or pedal edema. NEUROLOGICAL: Gross neurological examination did not reveal any focal deficits. SKIN: No rashes. Assessment and Plan Assessment: -Fall and weakness .-New Diffuse osseous metastatic disease with numerous lytic and sclerotic lesions throughout cervical thoracic spine, sacrum, left iliac bone, multiple vertebral bodies per CTs, probably recurrence or relapse of her breast cancer patient is not willing to further pursue these and wanted to be hospice. Patient declined even palliative radiation therapy -Acute on chronic hypercapnic respiratory failure secondary to COPD and there may be a possibility of right lower lobe pneumonia patient is being continued on steroids, patient wears 4 L of oxygen patient has advanced COPD -A. fib and the rate controlled -History of breast cancer, left mastectomy years ago -Hypertension -Hyperlipidemia Patient Condition at Discharge: Stable Plan - Discharge Summary Discharge Rx Participant: No New Discharge Prescriptions: No Action Potassium Chloride ER [K-Dur 20] 20 meq PO DAILY Losartan/Hydrochlorothiazide [Hyzaar 100-25 Tablet] 1 tab PO DAILY Jackson Cit/Mag/D3/Zn/Elementary Substitute Teacher/Leonard/Bor [Citracal-Vit D + Magnesium Tab] 1 tab PO DAILY Diltiazem Cd [Cardizem CD] 180 mg PO DAILY Docusate [Colace] 100 mg PO BID #60 cap Ipratropium-Albuterol Nebulize [Duoneb 0.5 mg-3 mg/3 ml Soln] 3 ml INHALATION RT-QID #0 ampul.neb Ferrous Sulfate [Iron (65 MG Elemental)] 325 mg PO DAILY Multivitamins, Thera [Multivitamin (formulary)] 1 tab PO DAILY #30 tablet Rivaroxaban [Xarelto] 20 mg PO DAILY Pravastatin Sodium [Pravachol] 40 mg PO DAILY Ipratropium/Albuterol Sulfate [Combivent Respimat Inhaler] 1 puff INHALATION RT-QID Discharge Medication List Jackson Cit/Mag/D3/Zn/Elementary Substitute Teacher/Leonard/Bor [Citracal-Vit D + Magnesium Tab] 1 tab PO DAILY 12/18/13 [History] Diltiazem Cd [Cardizem CD] 180 mg PO DAILY 12/18/13 [History] Losartan/Hydrochlorothiazide [Hyzaar 100-25 Tablet] 1 tab PO DAILY 12/18/13 [ History] Potassium Chloride ER [K-Dur 20] 20 meq PO DAILY 12/18/13 [History] Docusate [Colace] 100 mg PO BID #60 cap 09/21/15 [Rx] Ipratropium-Albuterol Nebulize [Duoneb 0.5 mg-3 mg/3 ml Soln] 3 ml INHALATION RT -QID #0 ampul.neb 09/21/15 [Rx] Ferrous Sulfate [Iron (65 MG Elemental)] 325 mg PO DAILY 10/03/15 [History] Multivitamins, Thera [Multivitamin (formulary)] 1 tab PO DAILY #30 tablet [Rx] Ipratropium/Albuterol Sulfate [Combivent Respimat Inhaler] 1 puff INHALATION RT- QID 06/06/18 [History] Pravastatin Sodium [Pravachol] 40 mg PO DAILY 06/06/18 [History] Rivaroxaban [Xarelto] 20 mg PO DAILY 06/06/18 [History] Follow up Appointment(s)/Referral(s): Rad Turner DO [Primary Care Provider] - 1-2 days [facility] Visiting Nurse, [NON-STAFF] - Activity/Diet/Wound Care/Special Instructions: [facility]
[2018-06-13] MEDS: CALCIUM CARB-VIT D 500MG-200UN 1 EACH TAB PO SCH (11:36)
[2018-06-13] MEDS ORDERED: RIVAROXABAN 20 MG TAB PO SCH (17:30)
[2018-06-13] MEDS: ATORVASTATIN 20 MG TAB PO SCH (20:52)
[2018-06-14] MEDS: IPRATROPIUM-ALBUTEROL 3 ML NEB INHALATION PRN ×3 (00:17→15:31)
[2018-06-14] MEDS ORDERED: MORPHINE SULFATE 2 MG/ML SYRINGE ONE (02:12)
[2018-06-14] MEDS: HYDROcodone/APAP 5-325MG 1 EACH TAB PO PRN (02:45)
[2018-06-14] MEDS ORDERED: MORPHINE SULFATE 2 MG/ML SYRINGE IVP PRN (03:00)
[2018-06-14] MEDS: FORMOTEROL FUMARATE 20 MCG/2 ML NEBU INHALATION SCH ×2 (07:04→19:55)
[2018-06-14] MEDS: IPRATROPIUM-ALBUTEROL 3 ML NEB INHALATION SCH ×4 (07:04→19:56)
[2018-06-14] MEDS: BUDESONIDE 1 MG/2 ML NEBU INHALATION SCH ×2 (07:04→19:55)
[2018-06-14] MEDS: PANTOPRAZOLE 40 MG TABLET PO SCH ×2 (09:08→16:28)
[2018-06-14] MEDS: POTASSIUM CHLORIDE ER 20 MEQ TAB.ER PO SCH (09:09)
[2018-06-14] MEDS: DILTIAZEM CD 240 MG CAP.ER.24H PO SCH (09:09)
[2018-06-14] MEDS: SENNOSIDES-DOCUSATE SODIUM 1 EACH TAB PO SCH ×2 (09:09→20:19)
[2018-06-14] MEDS: DOCUSATE 100 MG CAP PO SCH ×2 (09:09→20:19)
[2018-06-14] MEDS: predniSONE 20 MG TAB PO SCH (09:09)
[2018-06-14] MEDS: SULFAMETHOX-TMP 800-160MG 1 EACH TAB PO SCH (09:10)
[2018-06-14] MEDS: FOLIC ACID 1 MG TAB PO SCH (12:14)
[2018-06-14] MEDS: MULTIVITAMINS, THERA 1 EACH TAB PO SCH (12:14)
[2018-06-14] MEDS: FERROUS SULFATE 325 MG TAB PO SCH (12:14)
[2018-06-14] MEDS: THIAMINE 100 MG TAB PO SCH (12:14)
[2018-06-14] MEDS: CALCIUM CARB-VIT D 500MG-200UN 1 EACH TAB PO SCH (12:14)
[2018-06-14] MEDS: ACETAMINOPHEN TAB 500 MG TAB PO PRN ×3 (13:45→20:20)
[2018-06-14] MEDS ORDERED: MORPHINE SULFATE 4 MG/ML SYRINGE IVP PRN (14:06)
[2018-06-14] MEDS ORDERED: LORazepam 2 MG/ML INJ IV PRN (14:06)
--- NOTE | 2018-06-14 15:15 | P.PN ---
Subjective 78-year-old female admitted with generalized weakness, status post fall, bilateral pneumonia and multiple other medical issues. Tested negative for influenza. Maintained on broad-spectrum IV antibiotics. Sitting up in chair, breathing improving, more alert. Maintaining O2 sats in the high 90s on 4 L nasal cannula.Receiving potassium replacements for potassium 3.1. Echo reporting normal LV function, EF 55-60%, moderate concentric left ventricular hypertrophy. Brain CT reporting no acute intracranial hemorrhage or midline shift, mild to moderate diffuse cerebral atrophy, chronic small vessel disease, right maxillary lesion noted. CT of neck reporting diffuse osseous metastatic disease with numerous lytic and sclerotic lesions identified possible etiology of right maxillary lesion on brain CT. afebrile, leukocytosis resolved, preliminary blood, urine cultures negative. Maintained on IV fluid hydration with renal function improving. 06/10/18 modified barium swallow reporting no penetration or aspiration.Bone scan scheduled today. Afebrile. Maintaining O2 sats in the high 90s on 4 L nasal cannula. Afebrile. Denies chest pain, palpitations or increased shortness of breath. Short of breath at rest. Diet intake fair. 06/12/2018 Patient is still not sure whether to get a biopsy. I had an extensive discussion as strain today as well regarding the options. The 2 options 1 being hospice and not worry about any further evaluation and the second option is having a biopsy and if needed chemo more than go on hospice. Patient doesn' t want any chemotherapy but okay with the hormonal therapy for possible breast cancer with metastatic disease. Although patient is still not sure whether she wanted biopsy or pursue the option of hospice. Anti-correlation is on hold for possible biopsy today. Patient is still on 4 L probably will not be able to lie flat for the procedure and definitely increased risk for the procedure. 06/14/2018 After lengthy delay because of the holiday weekend palliative care finally evaluated the patient they will discharge the patient to their service tomorrow word either tomorrow or Friday. Although to avoid any discomfort to the patient patient will be started on every 2-4 hourly morphine along with Ativan comfort is the main target here rest of other medications will be discontinued. Patient had respiratory distress last night which we treated with the comfort medications with significant improvement Constitutional: Denied any fatigue denied any fever. Cardio vascular: denied any chest pain, palpitations Gastrointestinal denied any nausea vomiting Pulmonary: He does have some shortness of breath. Neurologic denied any new focal deficits All inpatient medications were reviewed and appropriate changes in these medications as dictated in the interval history and assessment and plan. Objective - Vital Signs Vital signs: Vital Signs Temp 98.4 F 06/14/18 11:37 Pulse 94 06/14/18 11:56 Resp 20 06/14/18 11:37 BP 126/66 06/14/18 11:37 Pulse Ox 99 06/14/18 11:37 Intake & Output 06/13/18 06/14/18 06/14/18 18:59 06:59 18:59 Intake Total 0 200 Balance 0 200 Intake: Oral 0 200 Other: Voiding Method Bedside Commode Bedside Commode Bedside Commode # Voids 3 1 # Bowel Movements 0 - Exam PHYSICAL EXAMINATION: GENERAL: The patient is alert and oriented x3, not in any significant acute distress. Well developed, well nourished. Has some baseline respiratory distress is on 4 L of oxygen HEENT: Pupils are round and equally reacting to light. EOMI. No scleral icterus. No conjunctival pallor. Normocephalic, atraumatic. No pharyngeal erythema. No thyromegaly. CARDIOVASCULAR: S1 and S2 present. No murmurs, rubs, or gallops. PULMONARY: Diminished air entry into bilateral lung carroll no significant wheezing ABDOMEN: Soft, nontender, nondistended, normoactive bowel sounds. No palpable organomegaly. MUSCULOSKELETAL: No joint swelling or deformity. EXTREMITIES: No cyanosis, clubbing, or pedal edema. NEUROLOGICAL: Gross neurological examination did not reveal any focal deficits. SKIN: No rashes. - Labs CBC & Chem 7: 06/13/18 09:34 06/13/18 09:34 Assessment and Plan Plan: Assessment and Plan Assessment: -Fall and weakness . -New Diffuse osseous metastatic disease with numerous lytic and sclerotic lesions throughout cervical thoracic spine, sacrum, left iliac bone, multiple vertebral vertebral metastatic lesions -Acute on chronic hypercapnic respiratory failure secondary to COPD her COPD is pretty much at her baseline -A. fib and the rate controlled and he correlation is discontinued as patient is comfort care at this time -History of breast cancer, left mastectomy -Hypertension -Hyperlipidemia -Patient is comfort care patient will sign up hospice after the holiday weekend most probably tomorrow or Friday. Patient will be started on Ativan and morphine as needed. Patient was evaluated by hospice services. Patient is presently DO NOT RESUSCITATE and will be comfort care. No further testing will be ordered patient declined even palliative radiation no more biopsies of further testing at this time patient is comfort care
[2018-06-15] MEDS: IPRATROPIUM-ALBUTEROL 3 ML NEB INHALATION PRN ×2 (04:33→11:39)
[2018-06-15] MEDS: IPRATROPIUM-ALBUTEROL 3 ML NEB INHALATION SCH ×2 (07:28→11:17)
[2018-06-15] MEDS: BUDESONIDE 1 MG/2 ML NEBU INHALATION SCH (07:28)
[2018-06-15] MEDS: FORMOTEROL FUMARATE 20 MCG/2 ML NEBU INHALATION SCH (07:28)
[2018-06-15] MEDS: PANTOPRAZOLE 40 MG TABLET PO SCH (07:55)
[2018-06-15] MEDS: SENNOSIDES-DOCUSATE SODIUM 1 EACH TAB PO SCH (07:55)
[2018-06-15] MEDS: predniSONE 20 MG TAB PO SCH ×2 (07:55→08:08)
[2018-06-15] MEDS: DOCUSATE 100 MG CAP PO SCH (07:55)
[2018-06-15] MEDS: DILTIAZEM CD 240 MG CAP.ER.24H PO SCH ×2 (07:55→08:08)
[2018-06-15] MEDS: ACETAMINOPHEN TAB 500 MG TAB PO PRN ×2 (08:21→11:36)
--- NOTE | 2018-06-15 11:05 | P.DS ---
Providers Date of admission: 06/06/18 16:49 Attending physician: Michelle Mike Consults: 06/06/18 16:50 Consult Physician Routine Consulting Provider: Teri Hall Consult Reason/Comments: Elevated troponin, rapid atrial fibrillation Do you want consulting provider notified?: Yes 06/06/18 16:57 Consult Physician Routine Consulting Provider: Mabel العراقي Consult Reason/Comments: chf?? Do you want consulting provider notified?: Yes 06/06/18 16:58 Consult Physician Routine Consulting Provider: Hany Carr Consult Reason/Comments: pneumonia Do you want consulting provider notified?: Yes 06/08/18 16:39 Consult Physician Routine Consulting Provider: Toni Cr Consult Reason/Comments: Diffuse osseous metastatic disease Do you want consulting provider notified?: Yes 06/11/18 17:58 Consult Physician Routine Consulting Provider: Hill Westbrook Consult Reason/Comments: bone metastasis. Need for palliative radiation Do you want consulting provider notified?: Yes Primary care physician: [facility] Course: 78-year-old female admitted with generalized weakness, status post fall, bilateral pneumonia and multiple other medical issues. Tested negative for influenza. Maintained on broad-spectrum IV antibiotics. Sitting up in chair, breathing improving, more alert. Maintaining O2 sats in the high 90s on 4 L nasal cannula.Receiving potassium replacements for potassium 3.1. Echo reporting normal LV function, EF 55-60%, moderate concentric left ventricular hypertrophy. Brain CT reporting no acute intracranial hemorrhage or midline shift, mild to moderate diffuse cerebral atrophy, chronic small vessel disease, right maxillary lesion noted. CT of neck reporting diffuse osseous metastatic disease with numerous lytic and sclerotic lesions identified possible etiology of right maxillary lesion on brain CT. afebrile, leukocytosis resolved, preliminary blood, urine cultures negative. Maintained on IV fluid hydration with renal function improving. 06/10/18 modified barium swallow reporting no penetration or aspiration.Bone scan scheduled today. Afebrile. Maintaining O2 sats in the high 90s on 4 L nasal cannula. Afebrile. Denies chest pain, palpitations or increased shortness of breath. Short of breath at rest. Diet intake fair. 06/12/2018 Patient is still not sure whether to get a biopsy. I had an extensive discussion as strain today as well regarding the options. The 2 options 1 being hospice and not worry about any further evaluation and the second option is having a biopsy and if needed chemo more than go on hospice. Patient doesn' t want any chemotherapy but okay with the hormonal therapy for possible breast cancer with metastatic disease. Although patient is still not sure whether she wanted biopsy or pursue the option of hospice. Anti-correlation is on hold for possible biopsy today. Patient is still on 4 L probably will not be able to lie flat for the procedure and definitely increased risk for the procedure. 06/14/2018 After lengthy delay because of the holiday weekend palliative care finally evaluated the patient they will discharge the patient to their service tomorrow word either tomorr or Friday. Although to avoid any discomfort to the patient patient will be started on every 2-4 hourly morphine along with Ativan comfort is the main target here rest of other medications will be discontinued. Patient had respiratory distress last night which we treated with the comfort medications with significant improvement 06/15/2018 Patient will be discharged to [facility] today PHYSICAL EXAMINATION: GENERAL: The patient is alert and oriented x3, not in any significant acute distress. Well developed, well nourished. Has some baseline respiratory distress is on 4 L of oxygen HEENT: Pupils are round and equally reacting to light. EOMI. No scleral icterus. No conjunctival pallor. Normocephalic, atraumatic. No pharyngeal erythema. No thyromegaly. CARDIOVASCULAR: S1 and S2 present. No murmurs, rubs, or gallops. PULMONARY: Diminished air entry into bilateral lung carroll no significant wheezing ABDOMEN: Soft, nontender, nondistended, normoactive bowel sounds. No palpable organomegaly. MUSCULOSKELETAL: No joint swelling or deformity. EXTREMITIES: No cyanosis, clubbing, or pedal edema. NEUROLOGICAL: Gross neurological examination did not reveal any focal deficits. SKIN: No rashes. Assessment and Plan Assessment: -Fall and weakness . -New Diffuse osseous metastatic disease with numerous lytic and sclerotic lesions throughout cervical thoracic spine, sacrum, left iliac bone, multiple vertebral vertebral metastatic lesions -Acute on chronic hypercapnic respiratory failure secondary to COPD her COPD is pretty much at her baseline -A. fib and the rate controlled and he correlation is discontinued as patient is comfort care at this time -History of breast cancer, left mastectomy -Hypertension -Hyperlipidemia -Patient is comfort care patient will sign up hospice after the holiday weekend most probably tomorrow or Friday. Patient will be started on Ativan and morphine as needed. Patient was evaluated by hospice services. Patient is presently DO NOT RESUSCITATE and will be comfort care. She'll be discharged to [facility] today Patient Condition at Discharge: Stable Plan - Discharge Summary Discharge Rx Participant: No New Discharge Prescriptions: New LORazepam [Ativan] 1 mg PO TID 3 Days #9 tab MORPHINE ORAL EULA CONC 20mg/mL [Roxanol Oral Soln Conc 20MG/ML] 5 mg PO Q4H PRN 3 Days #9 ml PRN Reason: Pain Discontinued Potassium Chloride ER [K-Dur 20] 20 meq PO DAILY Losartan/Hydrochlorothiazide [Hyzaar 100-25 Tablet] 1 tab PO DAILY Jackson Cit/Mag/D3/Zn/[employer] Specialist/Leonard/Bor [Citracal-Vit D + Magnesium Tab] 1 tab PO DAILY Ferrous Sulfate [Iron (65 MG Elemental)] 325 mg PO DAILY Multivitamins, Thera [Multivitamin (formulary)] 1 tab PO DAILY #30 tablet Rivaroxaban [Xarelto] 20 mg PO DAILY Pravastatin Sodium [Pravachol] 40 mg PO DAILY No Action Diltiazem Cd [Cardizem CD] 180 mg PO DAILY Docusate [Colace] 100 mg PO BID #60 cap Ipratropium-Albuterol Nebulize [Duoneb 0.5 mg-3 mg/3 ml Soln] 3 ml INHALATION RT-QID #0 ampul.neb Ipratropium/Albuterol Sulfate [Combivent Respimat Inhaler] 1 puff INHALATION RT-QID Discharge Medication List Diltiazem Cd [Cardizem CD] 180 mg PO DAILY 12/18/13 [History] Docusate [Colace] 100 mg PO BID #60 cap 09/21/15 [Rx] Ipratropium-Albuterol Nebulize [Duoneb 0.5 mg-3 mg/3 ml Soln] 3 ml INHALATION RT -QID #0 ampul.neb 09/21/15 [Rx] Ipratropium/Albuterol Sulfate [Combivent Respimat Inhaler] 1 puff INHALATION RT- QID 06/06/18 [History] LORazepam [Ativan] 1 mg PO TID 3 Days #9 tab 06/15/18 [Rx] MORPHINE ORAL EULA CONC 20mg/mL [Roxanol Oral Soln Conc 20MG/ML] 5 mg PO Q4H PRN 3 Days #9 ml 06/15/18 [Rx] Follow up Appointment(s)/Referral(s): Rad Turner DO [Primary Care Provider] - 1-2 days [facility] Visiting Nurse, [NON-STAFF] - Activity/Diet/Wound Care/Special Instructions: [facility] Discharge Disposition: DISCH TO HOSPICE MED FACILTY
[2018-06-15] MEDS: THIAMINE 100 MG TAB PO SCH (11:33)
[2018-06-15] MEDS: MULTIVITAMINS, THERA 1 EACH TAB PO SCH (11:33)
[2018-06-15 12:44] VITALS: BP 118/68; PULSE 97; RESP 17; TEMP 98.9
--- NOTE | 2018-06-18 09:25 | CDI ---
Documentation Clarification Form Date: 06/18/18 From: Marbella Traylor Phone: If you have a question regarding this query, please contact Daina Solis at [phone] between 8am and 5pm. Admit Date: 06/06/2018 4:49:00 PM Patient Name: Rody Robledo Visit Number: [id number] Discharge Date: 06/15/2018 1:00:00 PM ATTENTION: The Clinical Documentation Specialists (CDI) and [employer] [employer] [facility] [employer] Coding Staff appreciate your assistance in clarifying documentation. Please respond to the clarification below the line at the bottom and electronically sign. The CDI & [employer] [facility] [employer] Coding staff will review the response and follow-up if needed. Please note: Queries are made part of the Legal Health Record. If you have any questions, please contact the author of this message via ITS. Dr. Zaki Su The patient presented with pneumonia. Per doctor Rashid's 06/07 - 06/08 & 06/10 progress notes the patient also had possible sepsis. History/Risk Factors: Patient admitted with pneumonia with sputum culture growing MRSA and stenotrophomonas maltophilia, COPD exacerbation, acute on chronic respiratory failure, acute kidney failure and bone metastasis. Clinical Indicators: Weakness, leukocytosis, tachycardia, tachypnea WBC: 14.3 Lactic acid: Not tested. Blood cultures: No growth Vitals signs on admission: T. 97.3, P. 140, P. 31, BP 89/67 Treatment: Antibiotics: IV Zosyn, IV Vancomycin, PO Bactrim IV Bolus: Sodium Chloride 500 mls In your professional opinion, please clarify if these findings signify one of the following conditions, whether the condition is POA, and cause, if known: Condition Sepsis ruled out SIRS, without underlying infectious process Sepsis Severe Sepsis Septic Shock Other, please specify Unable to determine Present on Admission Yes No Identify the (suspected) organism Link or clarify if there is associated (due to/with): Organ failure Shock Sepsis MTDD
== END 2018-06-15 13:00 | disposition hospice, inpatient (51) | DRG 871 ==
LOC: EC 13:20 → 3SCARD 16:49 → 3NMEDONC 06-13 14:41
PROVIDERS: ADMIT Hospitalist; ATTEND Hospitalist
DX: A41.50 Gram-negative sepsis, unspecified (principal); J15.212 Pneumonia due to Methicillin resistant Staphylococcus aureus; J96.21 Acute and chronic respiratory failure with hypoxia; J96.22 Acute and chronic respiratory failure with hypercapnia; J15.6 Pneumonia due to other Gram-negative bacteria; C79.51 Secondary malignant neoplasm of bone; J44.0 Chronic obstructive pulmonary disease with (acute) lower respiratory infection; J44.1 Chronic obstructive pulmonary disease with (acute) exacerbation; N17.9 Acute kidney failure, unspecified; I95.9 Hypotension, unspecified; E86.0 Dehydration; I27.21 Secondary pulmonary arterial hypertension; I48.0 Paroxysmal atrial fibrillation; J84.10 Pulmonary fibrosis, unspecified; I08.1 Rheumatic disorders of both mitral and tricuspid valves; D64.9 Anemia, unspecified; E78.5 Hyperlipidemia, unspecified; E87.6 Hypokalemia; I10 Essential (primary) hypertension; K80.20 Calculus of gallbladder without cholecystitis without obstruction; R62.7 Adult failure to thrive; R91.1 Solitary pulmonary nodule; M40.209 Unspecified kyphosis, site unspecified; R77.9 Abnormality of plasma protein, unspecified; H54.7 Unspecified visual loss; H91.90 Unspecified hearing loss, unspecified ear; Z51.5 Encounter for palliative care; Z66 Do not resuscitate; Z90.12 Acquired absence of left breast and nipple; Z87.891 Personal history of nicotine dependence; Z87.01 Personal history of pneumonia (recurrent); Z85.3 Personal history of malignant neoplasm of breast; Z79.01 Long term (current) use of anticoagulants; Z79.51 Long term (current) use of inhaled steroids; Z79.899 Other long term (current) drug therapy; Z79.52 Long term (current) use of systemic steroids; Z88.1 Allergy status to other antibiotic agents; Z98.42 Cataract extraction status, left eye; Z98.41 Cataract extraction status, right eye; Z96.1 Presence of intraocular lens; Z83.3 Family history of diabetes mellitus; Z82.5 Family history of asthma and other chronic lower respiratory diseases; Z82.3 Family history of stroke; Z82.0 Family history of epilepsy and other diseases of the nervous system; W19.XXXA Unspecified fall, initial encounter; Y92.009 Unspecified place in unspecified non-institutional (private) residence as the place of occurrence of the external cause
CPT/HCPCS: 36415; 51701; 70450; 70490; 71045; 71046; 71250; 71275; 74176; 74230; 78306; 80048; 80053; 81001; 82550; 82553; 82728; 82746; 83540; 83550; 83615; 83735; 83880; 83921; 84132; 84443; 84484; 85025; 85027; 85045; 85610; 85652; 86038; 86140; 86300; 86431; 87040; 87070; 87077; 87086; 87186; 87205; 87502; 93005; 93306; 94640; 94760; 96360; 96361; 99291